=== PATIENT | male | born 1965 | race Caucasian/White ===

== ENCOUNTER 2019-10-13 18:31 | Inpatient (IN) | payer OTHER, SELFPAY ==
--- NOTE | ~2019-10-13 | XR_ITS ---
EXAMINATION: XR abdomen/kub 1V EXAM DATE: 10/15/2019 08:22 INDICATION: Kidney stones, vomiting, epigastric pain. Left low back pain. TECHNIQUE: Frontal projection(s) of the abdomen for interpretation. Correlation is made to abdomen pe lvis CT from 10/12. FINDINGS: There is expected amount of colonic stool and gas. Mildly dilated air-filled small bowel p robably mild ileus. There is a right-sided pigtail catheter presumably in the gallbladder. There ar e no suspicious calcifications identified. There is no organomegaly suspected. Moderate disc disea se L4-5. IMPRESSION: Interval cholecystostomy tube placement. Mild ileus. Reviewed, dictated and finalized at location A.
--- NOTE | ~2019-10-13 | CT_ITS ---
EXAMINATION: US perc cholecystostomy w imag, CT guide absc cath placement DATE: 10/14/2019 INDICATION: Acute cholecystitis TECHNIQUE: The procedure including the risks and benefits was discussed with the patient. Risks discu ssed included hemorrhage, infection, allergic reaction and bowel perforation. Oral and written consen t were obtained. The patient was confirmed to be receiving appropriate antibiotic coverage. The patie nt also received 0.5 mg Dilaudid IV on the floor prior to the procedure. The skin overlying the liver and gallbladder was prepped and draped in usual sterile fashion. Anesthetic was administered with 1 % lidocaine subcutaneously and along the planned catheter tract and wall of the gallbladder. An attem pt was made to place a 8.5 Fr catheter with trochar technique into the gallbladder. The needle tip st ill in the subcutaneous tissues and without transgressing the peritoneum, the attempted placement was halted due to the relative cephalad position of the gallbladder which did not significantly improved in position with deep inspiration resulting in poor visualization of the trocar which was not deemed adequate to safely advance. The catheter and trocar were removed and the patient was transferred to the CT scanner for CT guided cholecystostomy tube placement. Cytogeneticist CT images were obtained and an int ercostal approach was chosen for drain placement. The skin overlying the abdomen was prepped and drap ed in usual sterile fashion. Anesthetic was administered with 1% lidocaine subcutaneously and along the planned intercostal tract. 18-gauge needle was inserted via transhepatic approach into the gallbl adder utilizing CT guidance. The trocar was removed yielding black-colored bile. Utilizing Seldinger technique a J-wire is advanced into the gallbladder and the tract serially dilated from 6 Fr to 8 Fr and an 8.5 Fr catheter placed over the wire. Position was confirmed with CT, the loop formed and the wire removed with spontaneous reflux of additional black bilious fluid from the catheter. 10 mL fluid was aspirated and sent to the lab for Gram stain and cultures. The catheter was stitched to the skin with suture, antibiotic ointment and a sterile dressing applied. At the conclusion of the procedure the patient was experiencing significant pain likely due to reflux of bile along the tract during tra ct dilation and the patient was given an additional 1.5 mg Dilaudid IV. There were no immediate compl ications. The catheter was attached to gravity drainage and continued to drain black-colored bile. Th e dose-length product was 207.83 mGy-cm. FINDINGS: CT images demonstrate the catheter within the gallbladder. 10 mL fluid was aspirated for te sting. IMPRESSION: 1. Successful CT-guided percutaneous cholecystostomy tube placement. 2. 10 mL fluid was sent for aerobic and anaerobic cultures. 3. The catheter will be managed by Dr. Ramirez. A catheter cholangiogram may be performed not less th an 48 hours after tube placement if clinically indicated to assess cystic duct patency. If cholecyste ctomy is not eventually performed and the infectious episode has resolved, the tube may be removed ov er a guidewire, preferably not less than 3 weeks after placement to allow time for a mature catheter tract to form to prevent bile leakage and peritonitis. Reviewed, dictated and finalized at location A. IMPRESSION: 1. Successful CT-guided percutaneous cholecystostomy tube placement. 2. 10 mL fluid was sent for aerobic and anaerobic cultures. 3. The catheter will be managed by Dr. Ramirez. A catheter cholangiogram may be performed not less than 48 hours after tube placement if clinically indicated to assess cystic duct patency. If cholecystectomy is not eventually performed a nd the
--- NOTE | ~2019-10-13 | CT_ITS ---
EXAMINATION: CT abdomen pelvis wo con DATE: 10/13/2019 19:50 INDICATION: Epigastric abdominal pain, nausea and vomiting TECHNIQUE: Computed tomography (CT) of the abdomen and pelvis was performed without intravenous contr ast. The dose-length product (DLP) was 1364.38 mGy-cm. Automated exposure control and iterative recon struction technique were employed. COMPARISON: None FINDINGS: Minimal dependent atelectasis is present in the lung bases. The heart size is normal. The l iver, spleen, pancreas, and adrenal glands are normal. There are subtle stones in the gallbladder. Th ere is mild gallbladder wall thickening as well as edematous stranding of the pericholecystic fat. Th ere is a 3 mm nonobstructing stone of the left kidney lower pole. The right kidney is unremarkable. N o pathologically enlarged abdominal or pelvic lymph nodes are identified. There is no free intraperit baker gas or evidence of bowel obstruction. A moderate volume of colonic stool is present. There is s evere lumbar spondylosis. There is a tiny fat-containing umbilical hernia. IMPRESSION: 1. CT findings consistent with acute cholecystitis. 2. Nonobstructing left nephrolithiasis. Reviewed, dictated and finalized at location A.
--- NOTE | ~2019-10-13 | US_ITS ---
EXAMINATION: US renal BI EXAM DATE: 10/15/2019 10:42 INDICATION: Elevated creatinine. TECHNIQUE: Multiple grayscale and Doppler images of the kidneys were obtained (by a technologist who performed the scan) and subsequently reviewed. There is no prior study for comparison. FINDINGS: Right kidney: There is normal contour and echogenicity. It measures 12.0 x 6.6 x 7.2 centimeters. T here are no focal renal lesions identified. There is no hydronephrosis. Left kidney: There is normal contour and echogenicity. It measures 12.3 x 6.4 x 6.8 centimeters. Th ere are no focal renal lesions identified. There is no hydronephrosis. Bladder unremarkable. IMPRESSION: 1. Sonographically unremarkable kidneys. Reviewed, dictated and finalized at location A.
--- NOTE | ~2019-10-13 | NM_ITS ---
EXAMINATION: NM hepatobiliary wo pharm EXAM DATE: 10/14/2019 14:04 INDICATION: Check for cystic duct obstruction. TECHNIQUE: 4 mCi Tc-99m mebrofenin (Choletec) was administered intravenously. Scintigraphic images o f the abdomen were obtained for one hour. At the 1 hour time point, 1.5 mcg sincalide (Kinevac) was a dministered by slow intravenous infusion, and imaging was continued for . Correlation is made to CT a bdomen and pelvis from yesterday.. FINDINGS: There is normal clearance of radiotracer from the blood pool. There is homogeneous tracer u ptake by the liver. There is small bowel activity identified by 15 minutes time. No gallbladder activ ity identified during the hour and 15 minutes of imaging, consistent with cholecystitis. IMPRESSION: Nonfilling gallbladder, consistent with cholecystitis. Reviewed, dictated and finalized at location A.
--- NOTE | ~2019-10-13 | CT_ITS ---
EXAMINATION: CT abdomen pelvis wo con DATE: 10/16/2019 10:23 INDICATION: Acute cholecystitis with new elevation of liver enzymes post cholecystostomy tube placeme nt. TECHNIQUE: Computed tomography (CT) of the abdomen and pelvis was performed without intravenous contr ast. Automated exposure control and iterative reconstruction technique were employed. The dose-length product was 1515.08 mGy-cm. COMPARISON: 10/13/2019 FINDINGS: Atelectasis in the bilateral lower lobes and lingula. Tiny right pleural effusion. Small calcific nod ule in the right lower lobe consistent with old granulomatous disease. Heart size is normal. Atherosc lerotic coronary artery calcifications with change of mediastinum and coronary artery bypass grafting as well as coronary artery stenting. No pericardial effusion. Cholecystostomy tube via intercostal t ranshepatic approach in expected position with loops formed in the fundus of the now decompressed gal lbladder. There is persistent wall thickening and pericholecystic inflammatory stranding consistent w ith acute cholecystitis. Unchanged small region of focal hepatic steatosis at the ligamentum teres. L iver is otherwise unremarkable with no evident intrahepatic biliary ductal dilation. The common bile duct is normal in caliber. Spleen and small splenule, pancreas and bilateral adrenal glands are margarita l. Unchanged 2 mm stone in a lower pole calyx of the left kidney. Right kidney is normal. Interval in crease in bilateral perinephric stranding. Bowels including the appendix are normal. Bladder is margarita l. Penile calcifications consistent with Peyronie's disease. There is small amount of simple fluid at tenuation ascites scattered throughout the abdomen and pelvis. Interval development of mild dependent body wall edema. Mild lumbar dextrocurvature with moderate to severe thoracolumbar spondylosis. IMPRESSION: 1. Cholecystostomy tube in expected position with interval decompression of the previously dilated ga llbladder which demonstrates prominent wall thickening and pericholecystic inflammatory change consis tent with acute cholecystitis. No intra or extra hepatic biliary ductal dilation. 2. Interval development of tiny right pleural effusion, small amount of ascites, mild body wall edema and increase in bilateral perinephric stranding which may be related to mild anasarca secondary to b acteremia occurring with cholecystostomy tube placement. If there is clinical concern for bile leak c ould consider HIDA scan. 3. Unchanged 2 mm stone at the lower pole of the left kidney. Reviewed, dictated and finalized at location A. IMPRESSION: 1. Cholecystostomy tube in expected position with interval decompression of the previously dilated gallbladder which demonstrates prominent wall thickening an d pericholecystic inflammatory change consistent with acute cholecystitis. No i ntra or extra hepatic biliary ductal dilation. 2. Interval development of tiny right pleural effusion, small amount of ascites , mild body wall edema and increase in bilateral perinephric stranding which ma y be related to mild anasarca secondary to bacteremia occurring with cholecysto stomy tube placement. If there is clinical concern for bile leak could consider HIDA scan. 3. Unchanged 2 mm stone at the lower pole of the left kidney.
[2019-10-13 18:50] VITALS: BP 173/78; PULSE 87; RESP 16; TEMP 36.9; O2SAT 98
[2019-10-13 19:08] LABS: Basophils Percent Auto 0.2 % (0.2-1.2); Eosinophils Absolute Auto 0.2 K/mm3 (0-0.3); Eosinophils Percent Auto 1.6 % (0-4.4); Hematocrit 50.7 % (42.0-52.0); Hemoglobin 15.6 g/dL (14.0-18.0); Immature Granulocyte Absolute 0.05 K/mm3 (0.00-0.031); Immature Granulocyte Percent A 0.4 % (0-0.5); Lymphocytes Percent Auto 10.1 % (18.3-44.2); Mean Corpuscular HGB Conc 30.8 g/dl (32-36); Mean Corpuscular Hemoglobin 28.6 pg (26-34); Mean Platelet Volume 12.6 fl (7.4-10.4); Monocytes Absolute Auto 1.3 K/mm3 (0.1-0.6); Monocytes Percent Auto 9.9 % (2.6-8.5); Neutrophils Percent Auto 77.8 % (45.5-73.1); Platelet Count Result 206 k/mm3 (150-375); Red Blood Count 5.45 M/mm3 (4.6-6.20); Red Cell Distribution Width 14.2 % (11.5-14.5); White Blood Count 12.9 K/mm3 (4.5-10.0)
[2019-10-13 19:16] LABS: Add Urine Microscopic? YES; Appearance Urine Clear (Clear); Bilirubin Urine Negative (Negative); Blood Urine Negative (Negative); Color Urine Yellow (Yellow); Glucose Urine UA 3+ mg/dL (Negative); Ketones Urine Negative (Negative); Leukocyte Esterase Ur Negative LEU/UL (Negative); Mucus Urine Rare /lpf; Nitrate Urine Negative (Negative); Protein Urine 2+ mg/dL (Negative); RBC Urine 0-2 /hpf (0-2); Specific Grav Ur 1.024 (1.001-1.035); WBC Urine 0-3 /hpf
[2019-10-13 19:21] LABS: Alanine Aminotransferase 16 U/L (4-50); Albumin Level 4.7 g/dL (3.5-5.1); Alkaline Phosphatase 85 U/L (38-126); Aspartate Amino Transferase 18 U/L (17-59); Bilirubin,Total 0.9 mg/dL (0.2-1.3); Blood Urea Nitrogen 29 mg/dL (9-20); Calcium 9.3 mg/dL (8.4-10.2); Carbon Dioxide 34 mmol/L (22-30); Chloride 96 mmol/L (98-107); Estimated CRCL calculation 64 ml/min; Estimated Glomerular Filt Rate 45; Glucose 148 mg/dL (75-110); Lipase 99 U/L (23-300); Potassium 4.3 mmol/L (3.4-5.0); Sodium 138 mmol/L (137-145)
[2019-10-13] MEDS: ONDANSETRON INJ 4 MG/2 ML VIAL IV PUSH (19:21)
[2019-10-13] MEDS: SODIUM CHLORIDE 0.9% IV 1,000 ML 999 ML IV CONT (19:21)
--- NOTE | 2019-10-13 19:23 | ED.ABDPAIN ---
HPI - Abdominal Pain General Chief Complaint: Abdominal Pain Stated Complaint: N/V/Abdominal pain Thur. Time Seen by Provider: 10/13/19 18:47 Source: patient Mode of arrival: ambulatory Limitations: no limitations History of Present Illness HPI narrative: Patient presents with chief complaint of worsening epigastric pain that is accompanied by nausea and vomiting that began on . Patient states that he thought his symptoms was due to eating chicken while out. Patient denies any fevers. Patient states that the pain to his epigastric area continues to worsen and is crampy in sensation. He reports having history of hypertension, diabetes, hypercholesterolemia. Patient had a CABG performed July 2018. Patient denies drinking any alcohol or having history of pancreatitis. Patient denies blood in his vomit or stool. Patient denies fever. Related Data Home Medications Medication Instructions Recorded Confirmed insulin degludec 200 unit/mL (3 48 unit SUB-Q DAILY ml 06/07/19 09/09/19 mL) subcutaneous pen rosuvastatin 20 mg tablet 20 mg PO DAILY 06/07/19 09/09/19 ticagrelor 90 mg tablet 90 mg PO Q12H 06/07/19 09/09/19 insulin degludec [Tresiba SUBCUT 10/13/19 FlexTouch U-200] Allergies Allergy/AdvReac Type Severity Reaction Status Date / Time ARB-Angiotensin Receptor Allergy Unknown Dizziness Verified 10/13/19 18:54 Antagonist Review of Systems Review of Systems: Narrative: CONSTITUTIONAL: Denies fever, chills, or sweats. EYES: Denies visual changes, redness, or discharge. ENT: Denies rhinorrhea, congestion, sore throat, or otalgia. CARDIOVASCULAR: Denies chest pain, palpitations, or edema. RESPIRATORY: Denies cough or dyspnea. GASTROINTESTINAL: Reports abdominal pain, nausea, vomiting, denies diarrhea. GENITOURINARY: Denies dysuria or hematuria. SKIN: Denies rash or itching. MUSCULOSKELETAL: Denies back pain, joint pain, or myalgia. NEUROLOGIC: Denies headache, numbness, dizziness, or weakness. PSYCHIATRIC: Denies anxiety or depression. 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 Hypertensive heart disease without heart failure salvage determiner (current) use of insulin Mixed hyperlipidemia Proliferative diabetic retinopathy Type 2 diabetes mellitus with diabetic polyneuropathy Type 2 diabetes mellitus with hyperglycemia Family History Family History (System 06/10/19 @ 10:28 by Isaura Key) Father Diabetes mellitus Family history of coronary artery disease Mother Cerebrovascular accident Family history of malignant neoplasm of ovary Social History Social History Smoking status: Never smoker Alcohol intake: never Substance use: never Substance use type: does not use Exam Narrative: Exam Narrative: GENERAL: Well-appearing, well-nourished, and in no acute distress. Obese HEAD: Normocephalic, atraumatic. EYES: PERRLA and EOMI. ENT: Nares clear, no rhinorrhea or epistaxis. Mucous membranes moist. Oropharynx without tonsillar hypertrophy exudate or other lesions. Bilateral TMs pearly camacho nonbulging CHEST: Clear to auscultation. No respiratory distress. No wheezes rales or rhonchi HEART: Regular rate and rhythm. ABDOMEN: Soft, moderate tenderness to epigastric area. nondistended, normal active bowel sounds. EXTREMITIES: Normal range of motion. No edema. SKIN: Warm, dry, no rash. NEURO: No focal deficits. Alert and oriented x3. PSYCH: Normal mood and affect. Course Vital Signs Vital signs: Vital Signs Temperature 98.4 F 10/13/19 18:50 Pulse Rate 87 10/13/19 18:50 Respiratory Rate 16 10/13/19 18:50 Blood Pressure 173/78 H 10/13/19 18:50 Pulse Oximetry 98 10/13/19 18:50 Temperature 98.4 F 10/13/19 18:50 Pulse Rate 87 10/13/19 18:5
[2019-10-13] MEDS: MORPHINE SULFATE 2 MG/ML INJ IV PUSH (20:31)
[2019-10-13] MEDS: HYDROMORPHONE HCL 1 MG/ML INJ 0.5 MG IV PUSH (21:26)
[2019-10-13] MEDS: METOCLOPRAMIDE HCL INJ 10 MG/2 ML VIAL IV PUSH (21:27)
--- NOTE | 2019-10-13 22:36 | PM.IMHP ---
H&P: HPI History of Present Illness Chief complaint: Epigastric pain for the past 4 days++ Narrative: This is a pleasant 54 year old Diabetic male with known CAD+, HTN, and hyperlipidemia who presented to the hospital with complaints of epigastric pain, nausea, and vomiting for the past 4 days. The patient's symptoms are aggravated with any intake of food or fluid. He denies any fevers, chills, bloody emesis, dysuria, hematuria, diarrhea or rectal bleeding. He denies any history of peptic ulcer disease or pancreatitis. The patient was evaluated in the ER tonight and found to have acute cholecystitis on CT Abd/pelvis. General Surgery has been consulted by ER provider. The patient has been started on IV antibiotics and we have been asked to admit the patient to the hospital for further care. No other complaints. 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 Hypertensive heart disease without heart failure terminal press operator (current) use of insulin Mixed hyperlipidemia Proliferative diabetic retinopathy Type 2 diabetes mellitus with diabetic polyneuropathy Type 2 diabetes mellitus with hyperglycemia Surgical History Surgical History (Updated 10/13/19 @ 22:40 by Richy Childress MD) Hx of CABG Family History Family History Father Diabetes mellitus Family history of coronary artery disease Mother Cerebrovascular accident Family history of malignant neoplasm of ovary Social History Social History Smoking status: Never smoker Alcohol intake: former Substance use: never Substance use type: does not use Gender identity (if verbalized by the patient): Male Spiritual care concerns: No Agree to blood products: Yes Meds Home Medications and Allergies Home Medications Medication Instructions Recorded Confirmed Type empagliflozin 25 mg tablet 25 mg PO DAILY #90 tablet 06/07/19 10/13/19 Rx insulin degludec 200 unit/mL (3 48 unit SUB-Q DAILY ml 06/07/19 10/13/19 History mL) subcutaneous pen rosuvastatin 20 mg tablet 20 mg PO DAILY 06/07/19 10/13/19 History ticagrelor 90 mg tablet 90 mg PO DAILY 06/07/19 10/13/19 History pen needle, diabetic 32 gauge x #200 each 07/30/19 10/13/19 Rx valsartan 160 mg tablet 160 mg PO DAILY #30 tablet 08/29/19 10/13/19 Rx Lyrica 100 mg capsule 100 mg PO BID #180 cap NS 09/09/19 10/13/19 Rx dulaglutide 0.75 mg/0.5 mL 0.75 mg SUB-Q WEEKLY #1 ml 09/09/19 10/13/19 Rx subcutaneous pen injector insulin degludec [Tresiba 48 unit SUBCUT DAILY 10/13/19 10/13/19 History FlexTouch U-200] Allergies Allergy/AdvReac Type Severity Reaction Status Date / Time ARB-Angiotensin Receptor Allergy Unknown Dizziness Verified 10/13/19 18:54 Antagonist Vital Signs Vital Signs - 24 hr 10/13/19 18:50 Temperature 36.9 C Pulse Rate 87 Respiratory Rate 16 Blood Pressure 173/78 H Pulse Oximetry 98 Exam Const: General: cooperative, alert, awake and ill appearing Nutritional Appearance: obese morbidly obese Orientation/consciousness: patient oriented x3 HENMT: Head: normal to inspection General nose exam: Normal external nose present Face and sinus: normal facial exam Mouth: Yes Normal oral and palatal mucosa present and Yes oropharynx normal Eyes: Pupils: Equal, round and reactive pupils present EOM: EOMs intact bilaterally Neck: Neck: supple and no JVD Thyroid: thyroid normal Lymphatic: lymphadenopathy not noted Resp: Effort & Inspection: normal respiratory effort Auscultation: clear to auscultation bilaterally Cardio: Rate: regular rate Rhythm: regular rhythm Heart sounds:
[2019-10-13] MEDS: LACTATED RINGERS 1,000 ML 125 ML IV CONT (22:39)
[2019-10-13 22:40] VITALS: BP 160/77; PULSE 87; RESP 18; TEMP 36.6; O2SAT 95; BMI 31.8
[2019-10-13 22:43] VITALS: BP 120/70; PULSE 80; RESP 20; TEMP 36.7; O2SAT 99
[2019-10-13] MEDS: HYDROMORPHONE HCL 1 MG/ML INJ IV PUSH (23:22)
--- NOTE | 2019-10-13 23:48 | ADMGEN ---
This patient, Jason Negro, was admitted to [facility] Surg Room 323-01. Patient/family oriented to hospital policies and general routines including ID bracelet, bed and alarms, visiting hours, pain management, procedures, bathroom and other care routines, personal items, smoking policy, room service/diet, and visiting hours. Valuables list has been completed. Information on how to activate the Rapid Response Team has been discussed. Patient/Family are encouraged to report perceived risks to care and to ask questions if they do not understand what they are told or what they should do.
[2019-10-14 00:12] LABS: Glucose Point of Care 160 (65-105)
[2019-10-14] MEDS: HYDROMORPHONE HCL 1 MG/ML INJ 0.5 MG IV PUSH ×2 (03:19→18:36)
[2019-10-14 06:00] VITALS: BP 152/86; PULSE 95; RESP 18; TEMP 36.8; O2SAT 95
[2019-10-14] MEDS: LACTATED RINGERS 1,000 ML 125 ML IV CONT ×3 (06:00→23:15)
[2019-10-14 06:10] LABS: Basophils Percent Auto 0.2 % (0.2-1.2); Eosinophils Percent Auto 0.3 % (0-4.4); Hemoglobin 14.4 g/dL (14.0-18.0); Immature Granulocyte Absolute 0.09 K/mm3 (0.00-0.031); Immature Granulocyte Percent A 0.7 % (0-0.5); Lymphocytes Absolute Auto 1.21 K/mm3 (0.9-3.2); Lymphocytes Percent Auto 9.3 % (18.3-44.2); Mean Corpuscular HGB Conc 31.3 g/dl (32-36); Mean Corpuscular Hemoglobin 28.9 pg (26-34); Mean Corpuscular Volume 92.2 fl (80-100); Mean Platelet Volume 12.3 fl (7.4-10.4); Monocytes Absolute Auto 1.4 K/mm3 (0.1-0.6); Monocytes Percent Auto 10.4 % (2.6-8.5); Neutrophils Absolute Auto 10.3 K/mm3 (1.3-6.7); Neutrophils Percent Auto 79.1 % (45.5-73.1); Platelet Count Result 194 k/mm3 (150-375); Red Blood Count 4.99 M/mm3 (4.6-6.20)
[2019-10-14 06:16] LABS: Glucose Point of Care 153 (65-105)
[2019-10-14 06:17] VITALS: BP 151/65
[2019-10-14] MEDS: HYDROMORPHONE HCL 1 MG/ML INJ IV PUSH ×3 (06:17→16:14)
[2019-10-14 06:42] LABS: Blood Urea Nitrogen 28 mg/dL (9-20); Calcium 8.7 mg/dL (8.4-10.2); Carbon Dioxide 32 mmol/L (22-30); Chloride 100 mmol/L (98-107); Estimated CRCL calculation 86 ml/min; Estimated Glomerular Filt Rate > 60; Glucose 163 mg/dL (75-110); Potassium 5.4 mmol/L (3.4-5.0); Sodium 137 mmol/L (137-145)
--- NOTE | 2019-10-14 09:22 | PM.CNGS ---
Assessment and Plan Assessment and plan (1) Acute cholecystitis: Code(s): K81.0 - Acute cholecystitis Status: Acute Assessment and Plan: CT scan reviewed and discussed with the patient. He has evidence of gallbladder wall thickening with gallstones and edematous stranding of pericholecystic fat. This is concerning for acute cholecystitis. He also had continued leukocytosis with a white blood cell count of 13,000 today. He is afebrile and LFTs normal. I discussed the pathophysiology of gallbladder disease with the patient as well as the treatment plan at this point. We will obtain a HIDA scan today to assess for filling of the gallbladder. Continue NPO status, IV antibiotics, IV fluids, antiemetics, and analgesics for now. We will have to hold narcotic IV pain medication prior to the HIDA scan. Updated plan following the HIDA scan, which showed no filling of the gallbladder consistent with acute cholecystitis. Dr. Ramirez spoke with the patient after these results regarding treatment options of treating this with a percutaneous cholecystostomy drain placement with antibiotics versus proceeding with the laparoscopic cholecystectomy, possible open, now over 72 hours after onset of symptoms. When considering surgery at this point, since the onset was over 72 hours ago, this is more likely to be a difficult surgery with significant inflammation and an increase in the risk of complications of surgery. If we proceeded with percutaneous cholecystostomy drain, then we would continue the antibiotics with likely oral antibiotics on discharge and plan the cholecystectomy electively weeks from now. The patient decided to proceed with percutaneous cholecystostomy drain placement, which was ordered to hopefully be done in Radiology tomorrow. Continue IV antibiotics and analgesics for now, and will allow the patient to have clear liquids tonight. Thank you for allowing me to see the patient in consultation and we will continue to follow along with you. (2) Antiplatelet or antithrombotic long-term use: Code(s): Z79.02 - custodial (current) use of antithrombotics/antiplatelets Status: Acute Assessment and Plan: Hold Brilinta and Aspirin. (3) CAD (coronary artery disease): Qualifiers: Associated angina: without angina Coronary Disease-Associated Artery/Lesion type: bypass graft [place] vs. transplanted heart: [place] heart Qualified Code(s): I25.810 - Atherosclerosis of coronary artery bypass graft(s) without angina pectoris Code(s): I25.10 - Atherosclerotic heart disease of [place] coronary artery without angina pectoris Status: Chronic Assessment and Plan: Increase his risk for surgery. (4) Type 2 diabetes mellitus with diabetic polyneuropathy: Qualifiers: Diabetes mellitus oysterman insulin use: with oysterman use Qualified Code(s): E11.42 - Type 2 diabetes mellitus with diabetic polyneuropathy; Z79.4 - custodial (current) use of insulin Code(s): E11.42 - Type 2 diabetes mellitus with diabetic polyneuropathy Status: Chronic Assessment and Plan: Increases his risk for surgery. (5) custodial (current) use of insulin: Code(s): Z79.4 - predatory animal exterminator (current) use of insulin Status: Acute (6) Hypertensive heart disease without heart failure: Code(s): I11.9 - Hypertensive heart disease without heart failure Status: Acute (7) Mixed hyperlipidemia: Code(s): E78.2 - Mixed hyperlipidemia Status: Chronic (8) Acute kidney injury: Code(s): N17.9 - Acute kidney failure, unspecified Status: Acute Assessment and Plan: Creatinine improved today to 1.2. Management per hospitalist. Additional Plan Discussed and formulated plan of care for this patient with Dr. Ramirez. History of Present Illness Consult details Consult date: 10/14/19 Reason for consult: other (Possible acute cholecystitis) Requesting physician: Davis
[2019-10-14 11:21] VITALS: BMI 31.8
[2019-10-14 11:34] LABS: Glucose Point of Care 138 (65-105)
--- NOTE | 2019-10-14 12:22 | PM.IMPN ---
Progress Note: A&P Assessment and Plan (1) Acute cholecystitis: Code(s): K81.0 - Acute cholecystitis Status: Acute Assessment and Plan: CT abdomen/pelvis consistent with acute cholecystitis. General surgery consulted and appreciate input. HIDA scan also consistent with acute cholecystitis. Anticipate cholecystectomy. Continue NPO, IV fluids and pain control. Remains on IV Zosyn. (2) Acute kidney injury: Code(s): N17.9 - Acute kidney failure, unspecified Status: Acute Assessment and Plan: Creatinine improved to 1.20 today. Will continue to monitor. (3) Type 2 diabetes mellitus with diabetic polyneuropathy: Qualifiers: Diabetes mellitus keno terminal operator insulin use: with fci use Qualified Code(s): E11.42 - Type 2 diabetes mellitus with diabetic polyneuropathy; Z79.4 - [facility] (current) use of insulin Code(s): E11.42 - Type 2 diabetes mellitus with diabetic polyneuropathy Status: Chronic Assessment and Plan: Glucose reviewed on 10/14/2019 and presently stable. Will hold home insulin while NPO. Sliding scale insulin available as needed. Home Lyrica also a on hold. Will check hemoglobin A1c. (4) Benign essential HTN: Code(s): I10 - Essential (primary) hypertension Status: Chronic Assessment and Plan: Blood pressure reviewed on 10/14/2019 with mild elevation but otherwise stable. Home valsartan on hold. IV hydralazine available as needed. (5) CAD (coronary artery disease): Qualifiers: Associated angina: without angina Coronary Disease-Associated Artery/Lesion type: bypass graft [place] vs. transplanted heart: [place] heart Qualified Code(s): I25.810 - Atherosclerosis of coronary artery bypass graft(s) without angina pectoris Code(s): I25.10 - Atherosclerotic heart disease of [place] coronary artery without angina pectoris Status: Chronic Assessment and Plan: Hold Brilinta and rosuvastatin. Resume once able. (6) Mixed hyperlipidemia: Code(s): E78.2 - Mixed hyperlipidemia Status: Chronic Assessment and Plan: Continue to hold rosuvastatin. (7) DVT prophylaxis: Code(s): Z29.9 - Encounter for prophylactic measures, unspecified Status: Acute Time Spent With Patient Time with patient: 15 - 25 minutes Subjective Date/time seen: 10/14/19 12:22 Interval history: Date of Service: 10/14/2019. Admitted with RUQ pain/acute cholecystitis. Patient still with RUQ pain. Intermittent nausea but no vomiting. No chest pain. No shortness of breath. Review of Systems Constitutional: Constitutional: Denies chills and Denies fever(s) ENT: Denies dysphagia Cardiovascular: Cardiovascular: Denies chest pain Respiratory: Respiratory: Denies dyspnea Gastrointestinal: Gastrointestinal: Reports abdominal pain (RUQ), Reports nausea and Denies vomiting Genitourinary: Genitourinary: Reports no additional male genitourinary complaints Musculoskeletal: Musculoskeletal: Reports no additional musculoskeletal complaints Integumentary/Breasts: Skin/Breast: Denies rash Neurologic: Denies headache(s) Psychiatric: Psychiatric: Denies anxiety, Denies confusion and Denies depression Exam Narrative: Exam Narrative: Awake and alert. Const: General: no acute distress HENMT: Mouth: Yes moist mucous membranes Neck: Neck: supple Lymphatic: lymphadenopathy not noted Resp: Auscultation: clear to auscultation bilaterally, no rales and no wheezes Cardio: Rate: regular rate Rhythm: regular rhythm GI: Inspection: non-distended GI Palp: Yes Soft to palpation and Yes Tenderness to palpation present (GI) (RUQ) Auscultation: normal bowel sounds Skin: General skin exam: no rashes or lesions noted Neuro: General: patient oriented x3 Cognition (Neuro): normal cognition Speech: normal speech Extrem: General: no edema Psych: Mental Status: mental status grossly normal Affect: normal af
[2019-10-14 14:41] VITALS: BP 151/72; PULSE 84; RESP 18; TEMP 36.8; O2SAT 95
[2019-10-14 16:07] LABS: INR 1.2; Prothrombin Time 14.5 Seconds (11.1-14.7)
[2019-10-14 16:08] LABS: Partial Thromboplastin Time 29.2 SECONDS (22.3-36.8)
[2019-10-14] MEDS: HYDROMORPHONE HCL 2 MG/ML VIAL 1.5 MG IV PUSH (18:30)
[2019-10-14 18:48] VITALS: BP 157/87; PULSE 80; RESP 18; O2SAT 88
[2019-10-14 18:59] VITALS: BP 163/76; PULSE 95; RESP 18; TEMP 37.2; O2SAT 94
[2019-10-14 20:20] LABS: Glucose Point of Care 152 (65-105)
--- NOTE | 2019-10-14 21:14 | PC.NURSE ---
[facility] Pt returned at 1426. Received call from [employer] during the middle about whether it should include pharmacologics or not. Called James's office and they said that he would call them to clarify. Dr. Ramirez stopped by and asked me to premedicate pt for US perc drain with 1 mg dilaudid. He also asked me to put in clear liquid diet upon pt return. If tolerated well, pt can advance to full liquid in AM. Pt down for procedure at 1644. Pretreatment pain medication given prior to leaving floor. Received call while pt was down in US that they were needing to use CT to place drain. Asked to put order in per Dr. Henao. Received additional call for me to come down to CT and give medication for pain. Used 1 ml dilaudid at 1810. Dr. Henao stated that additional pain meds would need to be ordered. Called Dr. Ramirez who gave increase in pain meds, plus a one time 0.5mg dilaudid dose for when pt returned to floor. At 1830 pt given 0.5mg dilaudid. at 1900 pt appeared to be experiencing some relief.
[2019-10-14 22:00] VITALS: BP 128/76; PULSE 101; RESP 18; TEMP 36.4; O2SAT 95
[2019-10-14 23:26] LABS: Glucose Point of Care 171 (65-105)
[2019-10-15] VITALS (13 sets, daily range): BP systolic 72–169; BP diastolic 45–97; PULSE 76–87; RESP 16–20; TEMP 36.1–36.7; O2SAT 92–96
[2019-10-15 05:36] LABS: Hematocrit 45.8 % (42.0-52.0); Hemoglobin 13.4 g/dL (14.0-18.0); Mean Corpuscular HGB Conc 29.3 g/dl (32-36); Mean Corpuscular Hemoglobin 28.4 pg (26-34); Mean Platelet Volume 12.7 fl (7.4-10.4); Platelet Count Result 194 k/mm3 (150-375); Red Blood Count 4.72 M/mm3 (4.6-6.20); Red Cell Distribution Width 14.5 % (11.5-14.5); White Blood Count 10.5 K/mm3 (4.5-10.0)
[2019-10-15 05:47] LABS: Hemoglobin A1C 6.7 % (<5.7)
[2019-10-15] MEDS: SODIUM CHLORIDE 0.9% IV 1,000 ML 999 ML IV CONT (05:51)
[2019-10-15] MEDS: INSULIN ASPART (*BKC) 100 UNITS/ML SUB-Q ×3 (05:54→17:35)
[2019-10-15 05:59] LABS: Albumin Level 3.6 g/dL (3.5-5.1); Alkaline Phosphatase 235 U/L (38-126); Bilirubin,Total 2.6 mg/dL (0.2-1.3); Blood Urea Nitrogen 40 mg/dL (9-20); Calcium 8.2 mg/dL (8.4-10.2); Carbon Dioxide 23 mmol/L (22-30); Chloride 97 mmol/L (98-107); Estimated CRCL calculation 36 ml/min; Estimated Glomerular Filt Rate 22; Glucose 358 mg/dL (75-110); Potassium 5.4 mmol/L (3.4-5.0); Sodium 132 mmol/L (137-145)
[2019-10-15 06:36] LABS: Alanine Aminotransferase > 3750 U/L (4-50); Aspartate Amino Transferase 4977 U/L (17-59)
[2019-10-15 06:47] LABS: Glucose Point of Care 319 (65-105)
[2019-10-15 07:28] LABS: Glucose Point of Care 334 (65-105)
[2019-10-15] MEDS: SODIUM CHLORIDE 0.9% IV 500 ML IV CONT (07:30)
[2019-10-15] MEDS: ONDANSETRON INJ 4 MG/2 ML VIAL IV PUSH ×3 (07:32→21:28)
--- NOTE | 2019-10-15 07:51 | PM.IMPN ---
Progress Note: A&P Assessment and Plan (1) Hypotension: Qualifiers: Hypotension type: unspecified hypotension type Qualified Code(s): I95.9 - Hypotension, unspecified Code(s): I95.9 - Hypotension, unspecified Status: Acute Assessment and Plan: Probably result of issue secondary to cholecystitis. Patient did receive 1 L bolus overnight. Additional 500 cc bolus normal saline given this morning. Blood pressure did decrease to a low of 72/50 manually. Blood pressure 129/97 after 2nd bolus. Will continue IV fluids. Will continue to monitor. Blood and urine cultures ordered given entire situation. Total time spent in critical care 40 minutes. (2) Acute cholecystitis: Code(s): K81.0 - Acute cholecystitis Status: Acute Assessment and Plan: CT abdomen/pelvis consistent with acute cholecystitis. General surgery consulted and appreciate input. HIDA scan also consistent with acute cholecystitis. After discussion with Dr. Ramirez yesterday, decision was made for percutaneous cholecystostomy drain. Unable to be done by ultrasound and done by CT scan. LFTs are now increased this morning but not unexpected. KUB ordered with nausea and nonobstructing left kidney stone noted on previous CT scans. Will continue IV Zosyn. Continue IV fluids. KUB results with mild ileus. Continue to monitor. (3) Acute kidney injury: Code(s): N17.9 - Acute kidney failure, unspecified Status: Acute Assessment and Plan: Creatinine has now increased to 3.00 today. Suspect combination of hypotension and in infectious issues. Will continue to monitor. Will check renal ultrasound. (4) Type 2 diabetes mellitus with diabetic polyneuropathy: Qualifiers: Diabetes mellitus fci insulin use: with adjunct faculty for medical terminology use Qualified Code(s): E11.42 - Type 2 diabetes mellitus with diabetic polyneuropathy; Z79.4 - petroleum terminal plant operator (current) use of insulin Code(s): E11.42 - Type 2 diabetes mellitus with diabetic polyneuropathy Status: Chronic Assessment and Plan: Glucose reviewed on 10/15/2019 and now in 300s. Will hold home insulin as still having nausea and vomiting but anticipate needing to restart. Hold other home medication. Will also continue home Lyrica for now. Sliding scale insulin available as needed. Hemoglobin A1c 6.7. (5) Benign essential HTN: Code(s): I10 - Essential (primary) hypertension Status: Chronic Assessment and Plan: Blood pressure low as noted above. Continue to hold home valsartan. (6) CAD (coronary artery disease): Qualifiers: Associated angina: without angina Coronary Disease-Associated Artery/Lesion type: bypass graft [place] vs. transplanted heart: [place] heart Qualified Code(s): I25.810 - Atherosclerosis of coronary artery bypass graft(s) without angina pectoris Code(s): I25.10 - Atherosclerotic heart disease of [place] coronary artery without angina pectoris Status: Chronic Assessment and Plan: Hold Brilinta and rosuvastatin. Resume once able. (7) Mixed hyperlipidemia: Code(s): E78.2 - Mixed hyperlipidemia Status: Chronic Assessment and Plan: Continue to hold rosuvastatin. (8) DVT prophylaxis: Code(s): Z29.9 - Encounter for prophylactic measures, unspecified Status: Acute Assessment and Plan: SCDs. Time Spent With Patient Time with patient: 15 - 25 minutes Subjective Date/time seen: 10/15/19 07:51 Interval history: Date of Service: 10/15/2019. Admitted with RUQ pain/acute cholecystitis. Patient with decreased blood pressure overnight and again this morning. Patient currently with nausea and vomiting. Also complaining of pain left lower back. Feels decrease in hearing. No chest pain or chest pressure. No shortness of breath. Review of Systems Constitutional: Constitutional: Denies chills and Denies fever(s) ENT: Denies dysphagia Cardi
[2019-10-15 07:58] LABS: Albumin Level 3.7 g/dL (3.5-5.1)
[2019-10-15 07:59] LABS: Alkaline Phosphatase 238 U/L (38-126); Bilirubin Direct 0.6 mg/dL (0-0.3); Bilirubin,Total 2.5 mg/dL (0.2-1.3); Lipase 97 U/L (23-300)
[2019-10-15 08:02] LABS: Alanine Aminotransferase > 3750 U/L (4-50); Aspartate Amino Transferase 4977 U/L (17-59)
--- NOTE | 2019-10-15 08:03 | PM.PNGS ---
Progress Note: A&P Assessment and Plan (1) Hypotension: Onset Date: ~10/15/19 Qualifiers: Hypotension type: unspecified hypotension type Qualified Code(s): I95.9 - Hypotension, unspecified Code(s): I95.9 - Hypotension, unspecified Status: Acute (2) Acute cholecystitis: Onset Date: ~10/10/19 Code(s): K81.0 - Acute cholecystitis Status: Acute Assessment and Plan: Patient had placement of a CT-guided cholecystostomy tube last night for this problem. He has had bilious drainage from it and has not moved. His H&H was stable this morning after the procedure. There is dark bilious drainage from the catheter at this time. It does not appear to have been removed or dislodged. (3) Type 2 diabetes mellitus with hyperglycemia: Onset Date: Unknown Code(s): E11.65 - Type 2 diabetes mellitus with hyperglycemia Status: Acute Assessment and Plan: Blood sugars way up today because he vomited is not eating it is difficult to control at this time. (4) Left nephrolithiasis: Onset Date: Unknown Code(s): N20.0 - Calculus of kidney Status: Acute Assessment and Plan: Noted on CT scan when admitted this date. It was a small stone within the lower pole of the left kidney. Additional Plan Discussed with Dr. rousseau. We will give another fluid bolus. Will do a KUB of the abdomen to rule out movement of the stone from the left kidney leading to perhaps low lobe left back pain from a kidney stone passage Will recheck labs and check serial H&Hs. Subjective Subjective Date/Time Seen: 10/15/19 08:03 Early this morning the patient complained of increased left lower back pain and loose stools with some incontinence. He also was found to have a low blood pressure and was given a bolus. Patient was complaining of left low back pain as we examined him this morning. He was nauseated and vomited once before I arrived. Review of Systems Constitutional: Constitutional: Reports no additional constitutional complaints ENT: Reports other (Mucous Membranes moist.) Cardiovascular: Cardiovascular: Denies dyspnea Respiratory: Respiratory: Denies pain on inspiration and Denies dyspnea Musculoskeletal: Musculoskeletal: Reports other (No calf swelling or edema) Integumentary/Breasts: Skin/Breast: Reports system reviewed and no additional complaints, except as docu Exam HENMT: Mouth: Yes moist mucous membranes Neck: Neck: normal visual inspection Chest: Chest palpation & inspection: normal inspection of the chest Resp: Effort & Inspection: normal respiratory effort Auscultation: clear to auscultation bilaterally Cardio: Jugular venous distension: no JVD Rate: regular rate Rhythm: regular rhythm GI: Inspection: normal to inspection and other ( Cholecystostomy drain exiting a site in the right upper quadrant.) Auscultation: normal bowel sounds Rectal Exam: deferred Other: Exit site for the cholecystostomy tube is high near the rib margin on the right. Patient has active bowel sounds. Abdomen otherwise unremarkable. Neuro: General: patient oriented x3 and moves all extremities Speech: normal speech Extrem: General: normal exam except as noted Psych: Mental Status: mental status grossly normal Speech and movement: Normal speech and movement present Affect: normal affect Thought content: Yes Normal thought content present Objective Data Vital Signs Vital Signs: Vital Signs - 24 hr 10/14/19 14:41 10/14/19 18:48 10/14/19 18:59 Temperature 36.8 C 37.2 C Pulse Rate 84 80 95 Respiratory Rate 18 18 18 Blood Pressure 151/72 H 157/87 H 163/76 H Pulse Oximetry 95 88 L 94 10/14/19 22:00 10/15/19 04:21 10/15/19 06:00 Temperature 36.4 C 36.7 C 36.4 C Pulse Rate 101 H 86 82 Respiratory Rate 18 18 18 Blood Pressure 128/76 83/46 L 102/75 Pulse Oximetry 95 93 96 10/15/19 07:35 10/15/19 07:38 Temperature Pulse Rate Res
[2019-10-15 09:21] LABS: Hemoglobin 13.4 g/dL (14.0-18.0)
[2019-10-15 09:30] LABS: INR 1.9; Prothrombin Time 21.4 Seconds (11.1-14.7)
[2019-10-15 09:31] LABS: Partial Thromboplastin Time 33.7 SECONDS (22.3-36.8)
[2019-10-15 11:49] LABS: Glucose Point of Care 305 (65-105)
[2019-10-15 15:16] LABS: Hematocrit 47.7 % (42.0-52.0); Hemoglobin 14.8 g/dL (14.0-18.0)
[2019-10-15] MEDS: LACTATED RINGERS 1,000 ML 125 ML IV CONT (15:20)
[2019-10-15 17:32] LABS: Glucose Point of Care 341 (65-105)
[2019-10-15] MEDS: INSULIN GLARGINE (*BKC) 100 UNITS/ML 20 UNITS SUB-Q (21:22)
[2019-10-15 21:42] LABS: Glucose Point of Care 292 (65-105)
[2019-10-16] VITALS (10 sets, daily range): BP systolic 129–198; BP diastolic 77–103; PULSE 73–85; RESP 18–20; TEMP 36.2–36.5; O2SAT 92–97
[2019-10-16] MEDS: LABETALOL HCL INJ 100 MG/20 ML VIAL 10 MG IV PUSH ×2 (00:34→05:53)
[2019-10-16] MEDS: LACTATED RINGERS 1,000 ML 125 ML IV CONT ×3 (03:05→15:54)
[2019-10-16] MEDS: ONDANSETRON INJ 4 MG/2 ML VIAL IV PUSH ×3 (03:16→19:24)
[2019-10-16 06:05] LABS: Basophils Percent Auto 0.3 % (0.2-1.2); Eosinophils Percent Auto 0.3 % (0-4.4); Hematocrit 45.1 % (42.0-52.0); Hemoglobin 14.4 g/dL (14.0-18.0); Immature Granulocyte Absolute 0.05 K/mm3 (0.00-0.031); Immature Granulocyte Percent A 0.4 % (0-0.5); Lymphocytes Percent Auto 7.1 % (18.3-44.2); Mean Corpuscular HGB Conc 31.9 g/dl (32-36); Mean Corpuscular Hemoglobin 28.7 pg (26-34); Mean Platelet Volume 12.6 fl (7.4-10.4); Monocytes Absolute Auto 0.8 K/mm3 (0.1-0.6); Monocytes Percent Auto 7.3 % (2.6-8.5); Neutrophils Absolute Auto 9.6 K/mm3 (1.3-6.7); Neutrophils Percent Auto 84.6 % (45.5-73.1); Platelet Count Result 196 k/mm3 (150-375); Red Blood Count 5.01 M/mm3 (4.6-6.20); White Blood Count 11.3 K/mm3 (4.5-10.0)
[2019-10-16 06:09] LABS: Albumin Level 3.9 g/dL (3.5-5.1); Alkaline Phosphatase 253 U/L (38-126); Bilirubin,Total 1.5 mg/dL (0.2-1.3); Blood Urea Nitrogen 63 mg/dL (9-20); Calcium 8.8 mg/dL (8.4-10.2); Carbon Dioxide 28 mmol/L (22-30); Chloride 94 mmol/L (98-107); Estimated CRCL calculation 21 ml/min; Estimated Glomerular Filt Rate 12; Glucose 299 mg/dL (75-110); Potassium 4.9 mmol/L (3.4-5.0); Sodium 133 mmol/L (137-145)
[2019-10-16 06:38] LABS: Alanine Aminotransferase > 3750 U/L (4-50); Aspartate Amino Transferase 2922 U/L (17-59)
[2019-10-16 07:52] LABS: Glucose Point of Care 273 (65-105)
[2019-10-16] MEDS: HYDROMORPHONE HCL 1 MG/ML INJ IV PUSH ×7 (08:06→19:20)
[2019-10-16] MEDS: INSULIN ASPART (*BKC) 100 UNITS/ML SUB-Q ×3 (08:08→16:07)
--- NOTE | 2019-10-16 10:15 | PM.PNGS ---
Progress Note: A&P Assessment and Plan (1) Hypotension: Onset Date: ~10/15/19 Qualifiers: Hypotension type: unspecified hypotension type Qualified Code(s): I95.9 - Hypotension, unspecified Code(s): I95.9 - Hypotension, unspecified Status: Acute (2) Acute cholecystitis: Onset Date: ~10/10/19 Code(s): K81.0 - Acute cholecystitis Status: Acute Assessment and Plan: Patient had placement of a CT-guided cholecystostomy tube two nights ago for this problem. He has had bilious drainage from it and it has not moved or retracted that we can tell. His H&H was stable yesterday and this morning after the procedure. There is dark bilious drainage from the catheter at this time. It does not appear to have been removed or dislodged. Patient had hypotension yesterday morning unknown cause but 1 possibility is sepsis related to tracking of infection along the catheter. Therefore I have decided to go ahead with a CT scan of the abdomen and pelvis without contrast. He does have elevated BUN creatinine so it is better to probably do it without contrast although these have improved in the last 24 hours with IV fluid rehydration. (3) Type 2 diabetes mellitus with hyperglycemia: Onset Date: Unknown Code(s): E11.65 - Type 2 diabetes mellitus with hyperglycemia Status: Acute Assessment and Plan: Blood sugars way up today because he vomited is not eating it is difficult to control at this time. (4) Left nephrolithiasis: Onset Date: Unknown Code(s): N20.0 - Calculus of kidney Status: Acute Assessment and Plan: Noted on CT scan when admitted this date. It was a small stone within the lower pole of the left kidney. Additional Plan Discussed with Dr. Gorman Check CT scan of the abdomen pelvis without contrast Aad alternating Reglan for nausea control if needed Subjective Subjective Date/Time Seen: 10/16/19 10:15 Patient is sitting up in lungs are chair when I entered the room. Still complain of nausea. Has some hypogastric and right upper quadrant pain. The left back pain that he was having yesterday morning has now resolved. He is otherwise doing okay. No bowel movement overnight. Positive flatus. No fever. Review of Systems Eyes: Eyes: Denies change in vision and Denies loss of vision ENT: Denies dysphagia, Denies dizziness, Denies headache(s) and Reports other (Mucous Membranes moist.) Cardiovascular: Cardiovascular: Denies chest pain, Denies syncope, Denies leg edema, Denies lightheadedness, Denies radiating jaw, neck or arm pain and Denies dyspnea Respiratory: Respiratory: Denies cough, Denies pain on inspiration, Denies dyspnea and Denies wheezing Gastrointestinal: Gastrointestinal: Reports as per HPI, Reports abdominal pain (epigastric and RUQ), Denies melena, Denies bloating, Denies hematochezia, Denies change in bowel habits, Denies constipation, Denies dysphagia, Denies diarrhea, Reports nausea and Reports vomiting Musculoskeletal: Musculoskeletal: Denies deformity, Denies joint swelling, Reports numbness (Diabetic peripheral neuropathy), Denies radiating pain into limb and Reports other (No calf swelling or edema) Integumentary/Breasts: Skin/Breast: Reports system reviewed and no additional complaints, except as docu, Denies pruritus, Denies wounds and Denies jaundice Neurologic: Denies dizziness, Denies syncope, Denies headache(s), Denies loss of vision, Reports numbness (Diabetic peripheral neuropathy), Denies tremor(s) and Denies weakness Psychiatric: Psychiatric: Denies anxiety and Denies depression Endocrine: Endocrine: Denies cold intolerance, Denies excessive sweating, Denies fatigue and Denies heat intolerance Exam Chest: Chest palpation & inspection: normal inspection of the chest Resp: Effort & Inspection: normal respiratory effort, able to speak in complete sentences and no respiratory distress Auscult
--- NOTE | 2019-10-16 11:16 | PM.IMPN ---
Progress Note: A&P Assessment and Plan (1) Hypotension: Onset Date: ~10/15/19 Qualifiers: Hypotension type: unspecified hypotension type Qualified Code(s): I95.9 - Hypotension, unspecified Code(s): I95.9 - Hypotension, unspecified Status: Acute Assessment and Plan: Probably result of issue secondary to cholecystitis. After fluid resuscitation yesterday, blood pressure reviewed on 10/16/2019 and now stable. Has actually had elevated blood pressure times. Blood cultures with no growth to date. Urine culture pending. Will continue to monitor. (2) Acute cholecystitis: Onset Date: ~10/10/19 Code(s): K81.0 - Acute cholecystitis Status: Acute Assessment and Plan: CT abdomen/pelvis on admission consistent with acute cholecystitis. General surgery consulted and appreciate input. HIDA scan also consistent with acute cholecystitis. After discussion with General surgery, decision was made for percutaneous cholecystostomy drain. Unable to be done by ultrasound and done by CT scan guidance instead. LFTs remain elevated as expected but improving with total bilirubin down to 1.5, AST down to 2922 and ALT greater than 3750. KUB done on 10/15/2019 with nonobstructing left kidney stone noted on previous CT scans. CT scan abdomen/pelvis today with cholecystostomy tube in expected position, prominent wall thickening of gallbladder and pericholecystic inflammatory change consistent with acute cholecystitis, no intra or extrahepatic biliary duct dilatation and interval development of tiny right pleural effusion, small amount of ascites, mild body wall edema and increasing bilateral perinephric stranding as well as unchanged 2 mm stone at the lower pole of the left kidney. Clinically patient is feeling better. Now on full liquids. Will continue IV Zosyn. Continue IV fluids. KUB results with mild ileus. Continue to monitor. (3) Acute kidney injury: Code(s): N17.9 - Acute kidney failure, unspecified Status: Acute Assessment and Plan: Creatinine has increased to 5.20 today. Suspect combination of hypotension and in infectious issues but will consult nephrology for safety. I did speak with Dr. Mendoza who will see the patient later today. Renal ultrasound completed on 10/15/2019 with normal kidneys. Will continue to monitor kidney function. 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 Remains elevated. Lantus started last night and will increase to equivocal int dose of home long-acting insulin. Sliding scale insulin still available. Hemoglobin A1c 6.7. Will continue to hold home Lyrica for now. Will continue to monitor and adjust treatment as needed. (5) Benign essential HTN: Code(s): I10 - Essential (primary) hypertension Status: Chronic Assessment and Plan: Blood pressure reviewed on 10/16/2019. Did have elevated readings overnight for which patient received IV labetalol x2. Blood pressure now acceptable. Will continue to monitor. Will have IV hydralazine available if needed as need to continue to hold home valsartan with elevated creatinine level. (6) CAD (coronary artery disease): Qualifiers: Associated angina: without angina Coronary Disease-Associated Artery/Lesion type: bypass graft [place] vs. transplanted heart: [place] heart Qualified Code(s): I25.810 - Atherosclerosis of coronary artery bypass graft(s) without angina pectoris Code(s): I25.10 - Atherosclerotic heart disease of [place] coronary artery without angina pectoris Status
[2019-10-16 11:34] LABS: Glucose Point of Care 300 (65-105)
--- NOTE | 2019-10-16 14:29 | PM.CNNEP ---
Assessment and Plan Assessment and plan (1) Acute kidney injury: Code(s): N17.9 - Acute kidney failure, unspecified Status: Acute Assessment and Plan: The patient has acute kidney injury. It looks like his baseline creatinine is probably normal based on the fact that he had a creatinine of 1.2 early this admission. The patient does have significant diabetes with retinopathy and also longstanding hypertension and so could have some mild parenchymal kidney disease from those however does not seem severe. The patient has acute cholecystitis. Perhaps the infection has brought on acute tubular necrosis. His creatinine is rising quickly. Possibly he is catabolic from the infection and so is a high input of creatinine from his system. He probably was dehydrated when he got here with 4 days of belly pain and so could have pre renal azotemia. The dehydration on admission would also set him up for ATN. His blood pressure is relatively well controlled now and he was hypotensive yesterday. I am not sure what his outpatient blood pressures run but his if frequently out of control he might have dysautoregulation as his kidneys may be used to higher blood pressures. His volume status looks good right now. I would continue to give IV fluids at this point I doubt if he has some inflammatory or infiltrative disease at this point since it is so sudden during this infection event. He already had an ultrasound which rules out obstruction. He has a 2mm kidney stone in the lower pole of the left kidney. I do not think this is contributing to this clinical scenario. At this point I am going to get urine electrolytes and eosinophils. We will follow his numbers. We discussed that he might need dialysis if his creatinine continues to rise and if he develops symptoms or electrolyte issues resistant to medication approach. (2) Acute cholecystitis: Onset Date: ~10/10/19 Code(s): K81.0 - Acute cholecystitis Status: Acute Assessment and Plan: The patient has a cholecystostomy tube in. His liver enzymes are improved and his bilirubin is coming down. He seems to feel better and his fevers and white count are improved. I am hoping the kidneys follow suit soon. (3) HTN (hypertension) with goal to be determined: Code(s): I10 - Essential (primary) hypertension Status: Acute Assessment and Plan: His blood pressure was very high when he came in. It is unclear if this is because his pain was making his pressure high or if he is always out of control. At this point is blood pressure is better controlled. (4) CAD (coronary artery disease): Qualifiers: Coronary Disease-Associated Artery/Lesion type: bypass graft [place] vs. transplanted heart: [place] heart Associated angina: without angina Qualified Code(s): I25.810 - Atherosclerosis of coronary artery bypass graft(s) without angina pectoris Code(s): I25.10 - Atherosclerotic heart disease of [place] coronary artery without angina pectoris Status: Chronic Assessment and Plan: He is having no chest pain. (5) Left nephrolithiasis: Onset Date: Unknown Code(s): N20.0 - Calculus of kidney Status: Acute Assessment and Plan: He has got a stable 2mm kidney stone lower pole of the left kidney. History of Present Illness Reason for Consult Consult date: 10/16/19 Chief Complaint Chief complaint: Epigastric pain for the past 4 days++ History of Present Illness Narrative: Jason is a very pleasant 54-year-old gentleman who has multiple medical problems including diabetes, hypertension, coronary disease, hyperlipidemia, and now cholecystitis and renal failure. Into the hospital a couple of days ago with belly pain having gone on for 4 days at that time. He was evaluated and found to have cholecystitis. They wanted to do cholecystectomy but the patient refused so he had a cholecystostomy tube. On antibioti
[2019-10-16 16:02] LABS: Glucose Point of Care 262 (65-105)
[2019-10-16 16:08] LABS: Creatine Kinase 440 U/L (55-170)
[2019-10-16 17:22] LABS: Add Urine Microscopic? YES; Appearance Urine Clear (Clear); Bacteria Urine Trace /hpf; Bilirubin Urine Negative (Negative); Blood Urine 2+ (Negative); Color Urine Yellow (Yellow); Glucose Urine UA 3+ mg/dL (Negative); Ketones Urine Negative (Negative); Leukocyte Esterase Ur Negative LEU/UL (NEGATIVE); Nitrate Urine Negative (Negative); Protein Urine 2+ mg/dL (Negative); Squamous Epithelial Cell Urine Rare /hpf (Few); Urobilinogen Urine Negative mg/dL (<2.0); WBC Urine 0-3 /hpf (0-3)
[2019-10-16 17:25] LABS: Creatinine Urine 37.4 mg/dL; Total Protein Urine Random 53 mg/dL
[2019-10-16 17:33] LABS: Sodium Urine Random 71 meq/L
[2019-10-16] MEDS: INSULIN GLARGINE (*BKC) 100 UNITS/ML 48 UNITS SUB-Q (21:25)
[2019-10-16 21:43] LABS: Glucose Point of Care 224 (65-105)
[2019-10-17] MEDS: LACTATED RINGERS 1,000 ML 125 ML IV CONT ×3 (00:03→17:44)
--- NOTE | 2019-10-17 05:21 | PC.NURSE ---
At 0325 pt was found face down in the bathroom, pt unresponsive, Rapid Response called. At O500 transferred to ICU room 5
[2019-10-17 05:52] VITALS: BP 120/74; PULSE 72; RESP 16; TEMP 36.4; O2SAT 97
[2019-10-17 06:18] LABS: Basophils Percent Auto 0.4 % (0.2-1.2); Eosinophils Absolute Auto 0.2 K/mm3 (0-0.3); Eosinophils Percent Auto 1.8 % (0-4.4); Hematocrit 45.6 % (42.0-52.0); Hemoglobin 14.2 g/dL (14.0-18.0); Immature Granulocyte Absolute 0.05 K/mm3 (0.00-0.031); Immature Granulocyte Percent A 0.5 % (0-0.5); Lymphocytes Absolute Auto 0.77 K/mm3 (0.9-3.2); Lymphocytes Percent Auto 7.2 % (18.3-44.2); Mean Corpuscular HGB Conc 31.1 g/dl (32-36); Mean Corpuscular Hemoglobin 28.5 pg (26-34); Mean Corpuscular Volume 91.6 fl (80-100); Mean Platelet Volume 12.7 fl (7.4-10.4); Monocytes Absolute Auto 1.2 K/mm3 (0.1-0.6); Monocytes Percent Auto 11.4 % (2.6-8.5); Neutrophils Absolute Auto 8.5 K/mm3 (1.3-6.7); Neutrophils Percent Auto 78.7 % (45.5-73.1); Platelet Count Result 180 k/mm3 (150-375); Red Blood Count 4.98 M/mm3 (4.6-6.20); Red Cell Distribution Width 14.1 % (11.5-14.5); White Blood Count 10.7 K/mm3 (4.5-10.0)
[2019-10-17 06:34] LABS: Albumin Level 3.4 g/dL (3.5-5.1); Alkaline Phosphatase 205 U/L (38-126); Aspartate Amino Transferase 714 U/L (17-59); Bilirubin,Total 0.9 mg/dL (0.2-1.3); Blood Urea Nitrogen 72 mg/dL (9-20); Calcium 8.6 mg/dL (8.4-10.2); Carbon Dioxide 23 mmol/L (22-30); Chloride 99 mmol/L (98-107); Estimated CRCL calculation 18 ml/min; Estimated Glomerular Filt Rate 10; Glucose 170 mg/dL (75-110); Phosphorus 5.8 mg/dL (2.5-4.5); Potassium 4.5 mmol/L (3.4-5.0); Sodium 133 mmol/L (137-145)
[2019-10-17 07:42] LABS: Alanine Aminotransferase 2975 U/L (4-50)
[2019-10-17 08:39] LABS: Glucose Point of Care 155 (65-105)
--- NOTE | 2019-10-17 08:40 | PM.PNGS ---
Progress Note: A&P Assessment and Plan (1) Acute cholecystitis: Onset Date: ~10/10/19 Code(s): K81.0 - Acute cholecystitis Status: Acute Assessment and Plan: This seems to have been interrupted by placement of the cholecystostomy tube. This continues to drain clear brown bile. Patient denies any right upper quadrant pain today. From my point of view he could go home on 5 more days of antibiotic which needs to be renally dosed in view of his elevated creatinine. Will await results of further testing per Medicine and Nephrology regarding disposition. If stays in the hospital continue IV antibiotics and recheck liver function tests as these seem to be gradually coming down toward normal. (2) Type 2 diabetes mellitus with hyperglycemia: Onset Date: Unknown Code(s): E11.65 - Type 2 diabetes mellitus with hyperglycemia Status: Acute Assessment and Plan: Blood sugars way up today because he vomited is not eating it is difficult to control at this time. (3) Left nephrolithiasis: Onset Date: Unknown Code(s): N20.0 - Calculus of kidney Status: Acute Assessment and Plan: Noted on CT scan when admitted this date. It was a small stone within the lower pole of the left kidney. Additional Plan Await disposition from Medicine and Nephrology regarding worsening renal function. Continue IV antibiotics while in the hospital or change to 5 more days of oral if he goes home Continue drainage with current cholecystostomy tube Follow low-fat diet if he advance diet. Since nausea is improving will try sublingual Zofran for nausea and stop IV medications. Time Spent With Patient Time with patient: 15 - 25 minutes Subjective Subjective Date/Time Seen: 10/17/19 08:40 Patient is sitting up in the wound her chair when I came in the room. States that his nausea is significantly better. He did take 1 more dose early this morning. He is trying his full liquid diet now. One bowel movement overnight. Positive flatus. Denies any vomiting overnight. Denies any specific swelling in his legs. Has been up walking some. Review of Systems Constitutional: Constitutional: Reports as per HPI, Reports no additional constitutional complaints, Denies excessive sweating, Denies fatigue, Denies fever(s), Denies headache(s), Denies night sweats and Denies weakness Eyes: Eyes: Denies change in vision and Denies loss of vision ENT: Denies dysphagia, Denies dizziness, Denies headache(s) and Reports other (Mucous Membranes moist.) Cardiovascular: Cardiovascular: Denies chest pain, Denies syncope, Denies leg edema, Denies lightheadedness, Denies radiating jaw, neck or arm pain and Denies dyspnea Respiratory: Respiratory: Denies cough, Denies pain on inspiration, Denies dyspnea and Denies wheezing Gastrointestinal: Gastrointestinal: Reports no additional gastrointestinal complaints and Reports nausea (Without recent vomiting) Genitourinary: Comments: Known small stone in inferior pole of the kidney not moved on recent CT Musculoskeletal: Musculoskeletal: Denies deformity, Denies joint swelling, Reports numbness (Diabetic peripheral neuropathy), Denies radiating pain into limb and Reports other (No calf swelling or edema) Integumentary/Breasts: Skin/Breast: Reports system reviewed and no additional complaints, except as docu, Denies pruritus, Denies wounds and Denies jaundice Neurologic: Denies dizziness, Denies syncope, Denies headache(s), Denies loss of vision, Reports numbness (Diabetic peripheral neuropathy), Denies tremor(s) and Denies weakness Psychiatric: Psychiatric: Denies anxiety and Denies depression Endocrine: Endocrine: Denies cold intolerance, Denies excessive sweating, Denies fatigue and Denies heat intolerance Hematologic/Lymphatic: Hematologic/Lymphatic: Denies easy bleeding and Denies easy bruising Allergic/Immunologic: Allergic/Immunologic: Denies wheezing Exam Const: General:
[2019-10-17] MEDS: ONDANSETRON HCL ODT 4 MG TABLET PO ×2 (09:23→17:41)
--- NOTE | 2019-10-17 11:55 | PM.IMPN ---
Progress Note: A&P Assessment and Plan (1) Acute cholecystitis: Onset Date: ~10/10/19 Code(s): K81.0 - Acute cholecystitis Status: Acute Assessment and Plan: CT abdomen/pelvis on admission consistent with acute cholecystitis. General surgery consulted and appreciate input. HIDA scan also consistent with acute cholecystitis. After discussion with General surgery, decision was made for percutaneous cholecystostomy drain. Unable to be done by ultrasound and done by CT scan guidance instead. KUB done on 10/15/2019 with nonobstructing left kidney stone noted on previous CT scans. CT scan abdomen/pelvis today with cholecystostomy tube in expected position, prominent wall thickening of gallbladder and pericholecystic inflammatory change consistent with acute cholecystitis, no intra or extrahepatic biliary duct dilatation and interval development of tiny right pleural effusion, small amount of ascites, mild body wall edema and increasing bilateral perinephric stranding as well as unchanged 2 mm stone at the lower pole of the left kidney. Clinically has improved. LFTs decreasing with AST 714 and ALT 2975. Will need eventual gallbladder removal. Will be placed on antibiotics at discharge. (2) Acute kidney injury: Code(s): N17.9 - Acute kidney failure, unspecified Status: Acute Assessment and Plan: Nephrology consulted and appreciate input. Most likely result of hypotension infection. Creatinine has increased to 6.00 today although patient's urine volume is normal and urine clear. Renal ultrasound complete on 10/15/2019 with normal kidneys. Will continue to follow kidney function. May repeat labs this afternoon. (3) Hypotension: Onset Date: ~10/15/19 Qualifiers: Hypotension type: unspecified hypotension type Qualified Code(s): I95.9 - Hypotension, unspecified Code(s): I95.9 - Hypotension, unspecified Status: Acute Assessment and Plan: Probably result of issue secondary to cholecystitis. Blood pressure reviewed on 10/17/2019 and now increasing. Treatment of hypertension as noted below. (4) Type 2 diabetes mellitus with diabetic polyneuropathy: Qualifiers: Diabetes mellitus jacket changer insulin use: with longterm use Qualified Code(s): E11.42 - Type 2 diabetes mellitus with diabetic polyneuropathy; Z79.4 - thread weaver (current) use of insulin Code(s): E11.42 - Type 2 diabetes mellitus with diabetic polyneuropathy Status: Chronic Assessment and Plan: Glucose reviewed on 10/17/2019 and now improving with adjustment of Lantus yesterday to equivalent dose of his home long-acting insulin. Sliding scale insulin still available. Hemoglobin A1c 6.7. Will continue to hold home Lyrica for now. Will continue to monitor and adjust treatment as needed. (5) Benign essential HTN: Code(s): I10 - Essential (primary) hypertension Status: Chronic Assessment and Plan: Blood pressure reviewed on 10/17/2019. Does still have some elevated readings but also normal readings. Continue to hold home valsartan with elevated creatinine level. IV hydralazine available if needed. Continue to monitor. (6) CAD (coronary artery disease): Qualifiers: Associated angina: without angina Coronary Disease-Associated Artery/Lesion type: bypass graft [place] vs. transplanted heart: [place] heart Qualified Code(s): I25.810 - Atherosclerosis of coronary artery bypass graft(s) without angina pectoris Code(s): I25.10 - Atherosclerotic heart disease of [place] coronary artery without angina pectoris Status: Chronic Assessment and Plan: Will continue to hold Brilinta and rosuvastatin. Resume once able. (7) Mixed hyperlipidemia: Code(s): E78.2 - Mixed hyperlipidemia Status: Chronic Assessment and Plan: Continue to hold rosuvastatin. (8) DVT prophylaxis: Code(s): Z29.9 - Encounter for prophylacti
[2019-10-17 13:31] LABS: Glucose Point of Care 151 (65-105)
[2019-10-17 14:00] VITALS: BP 118/58; PULSE 84; RESP 18; TEMP 36.6; O2SAT 97
[2019-10-17 15:57] LABS: Blood Urea Nitrogen 72 mg/dL (9-20); Calcium 8.6 mg/dL (8.4-10.2); Carbon Dioxide 32 mmol/L (22-30); Chloride 96 mmol/L (98-107); Estimated CRCL calculation 18 ml/min; Estimated Glomerular Filt Rate 10; Glucose 217 mg/dL (75-110); Potassium 5.2 mmol/L (3.4-5.0); Sodium 133 mmol/L (137-145)
--- NOTE | 2019-10-17 17:37 | PM.PNNEP ---
Progress Note: A&P Assessment and Plan (1) Acute kidney injury: Code(s): N17.9 - Acute kidney failure, unspecified Status: Acute Assessment and Plan: The patient has acute kidney injury. Renal ultrasound is unremarkable. Urine electrolytes are okay. Urinalysis is unremarkable except for some blood. Urine output is good. Creatinine rashad but not by as much. Hopefully he is turning around soon (2) Acute cholecystitis: Onset Date: ~10/10/19 Code(s): K81.0 - Acute cholecystitis Status: Acute Assessment and Plan: The patient has a cholecystostomy tube in. His liver enzymes are improved and his bilirubin are coming down. He feels better (3) HTN (hypertension) with goal to be determined: Code(s): I10 - Essential (primary) hypertension Status: Acute Assessment and Plan: His blood pressure is under good control. (4) CAD (coronary artery disease): Qualifiers: Coronary Disease-Associated Artery/Lesion type: bypass graft [place] vs. transplanted heart: [place] heart Associated angina: without angina Qualified Code(s): I25.810 - Atherosclerosis of coronary artery bypass graft(s) without angina pectoris Code(s): I25.10 - Atherosclerotic heart disease of [place] coronary artery without angina pectoris Status: Chronic Assessment and Plan: He is having no chest pain. (5) Left nephrolithiasis: Onset Date: Unknown Code(s): N20.0 - Calculus of kidney Status: Acute Assessment and Plan: He has got a stable 2mm kidney stone lower pole of the left kidney. Subjective Date/time seen: 10/17/19 17:37 Interval history: Patient is feeling okay. No chest pain or shortness of breath Sitting up in a chair. is in the room Exam Narrative: Exam Narrative: Well developed well-nourished in no acute distress Lungs clear Heart regular without rub Abdomen bowel sounds positive soft nontender Extremities no edema Skin no rash Objective Data Vital Signs Vital Signs: Vital Signs - 24 hr 10/16/19 21:41 10/17/19 05:52 10/17/19 14:00 Temperature 36.2 C L 36.4 C 36.6 C Pulse Rate 73 72 84 Respiratory Rate 18 16 18 Blood Pressure 166/81 H 120/74 118/58 L Pulse Oximetry 96 97 97 Intake/Output Intake/Output: Intake & Output 10/14/19 10/15/19 10/16/19 10/17/19 23:59 23:59 23:59 23:59 Intake Total 3300 8720 2790 3315 Output Total 126 182 7050 1300 Balance 2672 6712 210 2014 Meds/Results Medications: Active Medications Generic Name Dose Route Start Last Admin Trade Name Freq PRN Reason Stop Dose Admin Acetaminophen 1,000 mg 10/14/19 15:38 Tylenol Tablet PO Q6H PRN Mild Pain (1-3) or Fever Hydrocodone Bitart/Acetaminophen 1 tab 10/14/19 15:37 10/15/19 21:32 [place] 5-325 Mg PO 1 tab Q6H PRN Administration Pain Rated 4-6 Dextrose 12.5 gm 10/13/19 23:02 Dextrose 50% Syringe IV PUSH PRN PRN Hypoglycemia Protocol Glucagon 1 mg 10/13/19 23:02 Glucagon For Inj IM PRN PRN Hypoglycemia Protocol Hydralazine HCl 10 mg 10/16/19 14:21 Apresoline Hcl Inj IV PUSH Q6HR PRN Blood Pressure - High Hydromorphone HCl 1 mg 10/14/19 18:36 10/16/19 19:20 Dilaudid Inj IV PUSH 1 mg Q3H PRN Administration Pain Rated 4-6 Hydromorphone HCl 1.5 mg 10/14/19 18:46 10/14/19 18:30 Dilaudid Inj IV PUSH 1.5 mg Q3H PRN Administration Pain Rated 7-10 Piperacillin/Tazobactam/Dextrose 3.375 gm in 50 mls @ 100 mls/hr 10/14/19 06:00 10/17/19 12:38 Zosyn 3.375 Gm/D5w 50ml Pm IVPB Infused Q6HR GAYE Infusion Lactated Ringer's 1,000 mls @ 125 mls/hr 10/13/19 20:55 10/17/19 09:23 Lr - Lactated Ringers Iv IV CONT 125 mls/hr .Q8H GAYE Administration Dextrose 1,000 mls @ 100 mls/hr 10/13/19 23:02 Dextrose 5% 1,000 Ml IVPB PRN PRN Hypoglycemia Protocol Insulin Aspart
[2019-10-17 17:52] LABS: Glucose Point of Care 177 (65-105)
[2019-10-17] MEDS: HYDROMORPHONE HCL 1 MG/ML INJ IV PUSH (20:27)
[2019-10-17] MEDS: INSULIN GLARGINE (*BKC) 100 UNITS/ML 48 UNITS SUB-Q (20:29)
[2019-10-17 21:48] VITALS: BP 152/80; PULSE 74; RESP 20; TEMP 36.7; O2SAT 95
[2019-10-18] MEDS: ONDANSETRON HCL ODT 4 MG TABLET PO (02:42)
[2019-10-18] MEDS: LACTATED RINGERS 1,000 ML 125 ML IV CONT (02:42)
[2019-10-18] MEDS: HYDROMORPHONE HCL 1 MG/ML INJ IV PUSH (03:15)
[2019-10-18 06:22] LABS: Glucose Point of Care 226 (65-105)
[2019-10-18 06:24] VITALS: BP 184/89; PULSE 79; RESP 20; TEMP 36.1; O2SAT 96
[2019-10-18 06:40] LABS: Albumin Level 3.8 g/dL (3.5-5.1); Alkaline Phosphatase 191 U/L (38-126); Aspartate Amino Transferase 385 U/L (17-59); Bilirubin,Total 0.9 mg/dL (0.2-1.3); Blood Urea Nitrogen 72 mg/dL (9-20); Calcium 9.1 mg/dL (8.4-10.2); Carbon Dioxide 34 mmol/L (22-30); Chloride 97 mmol/L (98-107); Estimated CRCL calculation 16 ml/min; Estimated Glomerular Filt Rate 9; Glucose 96 mg/dL (75-110); Potassium 4.9 mmol/L (3.4-5.0); Sodium 137 mmol/L (137-145)
[2019-10-18 06:41] LABS: Alanine Aminotransferase 2199 U/L (4-50)
[2019-10-18] MEDS: hydrALAZINE HCL 20 MG/ML VIAL 10 MG IV PUSH (08:47)
--- NOTE | 2019-10-18 10:19 | PM.PNNEP ---
Progress Note: A&P Assessment and Plan (1) Acute kidney injury: Code(s): N17.9 - Acute kidney failure, unspecified Status: Acute Assessment and Plan: The patient has acute kidney injury. Renal ultrasound is unremarkable. Urine electrolytes are okay. Urinalysis is unremarkable except for some blood. Urine output is good. Creatinine 1 to 3 to 5 to 6 to 6.6. certainly reaching a plateau but no descent yet so need to keep possibly early uremia with the gagging but not enough to start dialysis. on clear liquids. ?advance? Hopefully he is turning around soon (2) Acute cholecystitis: Onset Date: ~10/10/19 Code(s): K81.0 - Acute cholecystitis Status: Acute Assessment and Plan: The patient has a cholecystostomy tube in. His liver enzymes are improved and his bilirubin are coming down. He feels better (3) HTN (hypertension) with goal to be determined: Code(s): I10 - Essential (primary) hypertension Status: Acute Assessment and Plan: His blood pressure is high now. will cut back fluids (stop if diet advances) and start amlodipine. was on valsartan as an outpatient but won't use this due to anne (4) CAD (coronary artery disease): Qualifiers: Coronary Disease-Associated Artery/Lesion type: bypass graft [place] vs. transplanted heart: [place] heart Associated angina: without angina Qualified Code(s): I25.810 - Atherosclerosis of coronary artery bypass graft(s) without angina pectoris Code(s): I25.10 - Atherosclerotic heart disease of [place] coronary artery without angina pectoris Status: Chronic Assessment and Plan: He is having no chest pain. (5) Left nephrolithiasis: Onset Date: Unknown Code(s): N20.0 - Calculus of kidney Status: Acute Assessment and Plan: He has got a stable 2mm kidney stone lower pole of the left kidney. Subjective Date/time seen: 10/18/19 10:19 Interval history: Patient is feeling okay. No chest pain or shortness of breath he had a little gagging this morning. tolerating clear liquids. he is tired because the waken him for vitals frequently. Exam Narrative: Exam Narrative: Well developed well-nourished in no acute distress Lungs clear Heart regular without rub Abdomen bowel sounds positive soft nontender Extremities no edema Skin no rash or sq nodules Objective Data Vital Signs Vital Signs: Vital Signs - 24 hr 10/17/19 14:00 10/17/19 21:48 10/18/19 06:24 Temperature 36.6 C 36.7 C 36.1 C L Pulse Rate 84 74 79 Respiratory Rate 18 20 20 Blood Pressure 118/58 L 152/80 H 184/89 H Pulse Oximetry 97 95 96 Intake/Output Intake/Output: Intake & Output 10/15/19 10/16/19 10/17/19 10/18/19 23:59 23:59 23:59 23:59 Intake Total 4820 2790 4535 1904 Output Total 120 2580 1450 1880 Balance 4700 210 3085 24 Meds/Results Medications: Active Medications Generic Name Dose Route Start Last Admin Trade Name Freq PRN Reason Stop Dose Admin Acetaminophen 1,000 mg 10/14/19 15:38 Tylenol Tablet PO Q6H PRN Mild Pain (1-3) or Fever Hydrocodone Bitart/Acetaminophen 1 tab 10/14/19 15:37 10/15/19 21:32 [place] 5-325 Mg PO 1 tab Q6H PRN Administration Pain Rated 4-6 Dextrose 12.5 gm 10/13/19 23:02 Dextrose 50% Syringe IV PUSH PRN PRN Hypoglycemia Protocol Glucagon 1 mg 10/13/19 23:02 Glucagon For Inj IM PRN PRN Hypoglycemia Protocol Hydralazine HCl 10 mg 10/16/19 14:21 10/18/19 08:47 Apresoline Hcl Inj IV PUSH 10 mg Q6HR PRN Administration Blood Pressure - High Hydromorphone HCl 1 mg 10/14/19 18:36 10/18/19 03:15 Dilaudid Inj IV PUSH 1 mg Q3H PRN Administration Pain Rated 4-6 Hydromorphone HCl 1.5 mg 10/14/19 18:46 10/14/19 18:30 Dilaudid Inj IV PUSH 1.5 mg Q3H PRN Administration Pain Rated 7-10 Piperacillin/Tazobactam/Dextrose 3.375
--- NOTE | 2019-10-18 11:06 | PCNFU ---
Nutrition Follow-Up Complete: Inadequate oral intake at present related to cholecystitis as evidenced by NPO status. Patient to consume 50% of meals or more on advanced diet Goal:Progressing towards goal. Pt current nutrition is Full Liquids. Nutrition recommendation: advance as tolerated per MD. Last recorded weight is 115.6 kg. Bowel Motility:+BM 10/14 last reported Labs Reviewed:GFR 9,BUN 72,Cr 6.6 Meds Noted:Dilaudid, Novolog Additional Notes: Spoke with patient today, tolerating liquids. He is also receiving Compact BID providing an additional 220 kcals and 10 gms protein. Agree with current nutrition at this time. Monitoring: Follow up in 5 days.
--- NOTE | 2019-10-18 11:14 | PM.IMPN ---
Progress Note: A&P Assessment and Plan (1) Acute cholecystitis: Onset Date: ~10/10/19 Code(s): K81.0 - Acute cholecystitis Status: Acute Assessment and Plan: CT abdomen/pelvis on admission consistent with acute cholecystitis. General surgery consulted and appreciate input. HIDA scan also consistent with acute cholecystitis. After discussion with General surgery, decision was made for percutaneous cholecystostomy drain. Unable to be done by ultrasound and done by CT scan guidance instead. KUB done on 10/15/2019 with nonobstructing left kidney stone noted on previous CT scans. CT scan abdomen/pelvis today with cholecystostomy tube in expected position, prominent wall thickening of gallbladder and pericholecystic inflammatory change consistent with acute cholecystitis, no intra or extrahepatic biliary duct dilatation and interval development of tiny right pleural effusion, small amount of ascites, mild body wall edema and increasing bilateral perinephric stranding as well as unchanged 2 mm stone at the lower pole of the left kidney. LFTs decreasing with AST 385 and ALT 2199. Will need eventual gallbladder removal. Will be placed on antibiotics at discharge. Clinically improving. Diet advanced to diabetic and low-fat. Awaiting improvement of kidney function prior to discharge. (2) Acute kidney injury: Code(s): N17.9 - Acute kidney failure, unspecified Status: Acute Assessment and Plan: Nephrology consulted and appreciate input. Most likely result of hypotension infection. Creatinine has increased to 6.60 today Renal ultrasound complete on 10/15/2019 with normal kidneys. Continues to urinate well. Low-dose IV fluids in place. Holding nephrotoxic agents. Would like to see creatinine improving prior to discharge. Will follow. (3) Hypotension: Onset Date: ~10/15/19 Qualifiers: Hypotension type: unspecified hypotension type Qualified Code(s): I95.9 - Hypotension, unspecified Code(s): I95.9 - Hypotension, unspecified Status: Resolved Assessment and Plan: Probably result of issue secondary to cholecystitis. Blood pressure reviewed on 10/18/2019 and as noted below. Treatment of hypertension as noted below. (4) Type 2 diabetes mellitus with diabetic polyneuropathy: Qualifiers: Diabetes mellitus rat exterminator insulin use: with detention use Qualified Code(s): E11.42 - Type 2 diabetes mellitus with diabetic polyneuropathy; Z79.4 - shelter (current) use of insulin Code(s): E11.42 - Type 2 diabetes mellitus with diabetic polyneuropathy Status: Chronic Assessment and Plan: Glucose reviewed on 10/18/2019 and now controlled. Hemoglobin A1c 6.7. Will continue current dose of Lantus. Sliding scale insulin available as needed. Continue to hold home Lyrica. Will continue to monitor. (5) Benign essential HTN: Code(s): I10 - Essential (primary) hypertension Status: Chronic Assessment and Plan: Blood pressure reviewed on 10/18/2019. Still with some elevated readings but better this afternoon. Continue to hold home valsartan. IV hydralazine remains available if needed. Will continue to monitor. (6) CAD (coronary artery disease): Qualifiers: Associated angina: without angina Coronary Disease-Associated Artery/Lesion type: bypass graft [place] vs. transplanted heart: [place] heart Qualified Code(s): I25.810 - Atherosclerosis of coronary artery bypass graft(s) without angina pectoris Code(s): I25.10 - Atherosclerotic heart disease of [place] coronary artery without angina pectoris Status: Chronic Assessment and Plan: Will continue to hold Brilinta and rosuvastatin. Resume once able. (7) Mixed hyperlipidemia: Code(s): E78.2 - Mixed hyperlipidemia Status: Chronic Assessment and Plan: Continue to hold rosuvastatin. (8) DVT prophylaxis: Code(s): Z29.9 - Encounte
[2019-10-18] MEDS: LACTATED RINGERS 1,000 ML 50 ML IV CONT (11:21)
[2019-10-18 12:11] LABS: Glucose Point of Care 99 (65-105)
--- NOTE | 2019-10-18 13:32 | PM.PNGS ---
Progress Note: A&P Assessment and Plan (1) Acute cholecystitis: Onset Date: ~10/10/19 Code(s): K81.0 - Acute cholecystitis Status: Acute Assessment and Plan: This seems to have been interrupted by placement of the cholecystostomy tube. This continues to drain clear brown bile. Patient denies any right upper quadrant pain today. From my point of view he could go home on 5 more days of antibiotic which needs to be renally dosed in view of his elevated creatinine. Will await results of further testing per Medicine and Nephrology regarding disposition. If stays in the hospital continue IV antibiotics and recheck liver function tests as these seem to be gradually coming down toward normal. (2) Type 2 diabetes mellitus with hyperglycemia: Onset Date: Unknown Code(s): E11.65 - Type 2 diabetes mellitus with hyperglycemia Status: Acute Assessment and Plan: Tolerating a diet today. On carbohydrate controlled. (3) Left nephrolithiasis: Onset Date: Unknown Code(s): N20.0 - Calculus of kidney Status: Acute Assessment and Plan: Noted on CT scan when admitted this date. It was a small stone within the lower pole of the left kidney. This was also still present on the follow-up CT a few days ago. Additional Plan Await disposition from Medicine and Nephrology regarding worsening renal function. Continue IV antibiotics while in the hospital or change to 5 more days of oral if he goes home Continue drainage with current cholecystostomy tube Follow low-fat diet if he advances diet. Since nausea is improving will try sublingual Zofran for nausea and stop IV medications. Follow-up with me in 2 weeks if he goes home this weekend. Subjective Subjective Date/Time Seen: 10/18/19 13:32 Patient is sitting up in longer chair. Denies much abdominal pain today. Tolerating a soft diet out. ( controlled carbohydrate diabetic). Does not feel short of breath. Has been walking some. Did wear SCD hose during the night. Review of Systems Constitutional: Constitutional: Reports no additional constitutional complaints ENT: Reports other (Mucous Membranes moist.) Cardiovascular: Cardiovascular: Denies dyspnea Respiratory: Respiratory: Denies pain on inspiration and Denies dyspnea Musculoskeletal: Musculoskeletal: Reports other (No calf swelling or edema) Integumentary/Breasts: Skin/Breast: Reports system reviewed and no additional complaints, except as docu Exam Const: General: comfortable, no acute distress, alert and awake Nutritional Appearance: overweight Orientation/consciousness: patient oriented x3 Limitations: no limitations HENMT: Head: normal to inspection, normocephalic and atraumatic Ears: hearing grossly normal bilaterally and external ears normal General nose exam: Normal external nose present Mouth: Yes Normal oral and palatal mucosa present and Yes moist mucous membranes Eyes: General: appearance normal, both eyes and all related structures Sclera: sclerae normal EOM: EOMs intact bilaterally Neck: Neck: normal visual inspection and full ROM Chest: Chest palpation & inspection: normal inspection of the chest Resp: Effort & Inspection: normal respiratory effort, able to speak in complete sentences and no respiratory distress Auscultation: clear to auscultation bilaterally Cardio: Jugular venous distension: no JVD Rate: regular rate Rhythm: regular rhythm Heart sounds: S1 normal heart sound present and S2 normal heart sound present GI: Inspection: normal to inspection, non-distended, obesity, scar (Two small substernal scars) and other ( Cholecystostomy drain exiting a site in the right upper quadrant.) Auscultation: normal bowel sounds and Hypoactive bowel sounds present Rectal Exam: deferred Other: Exit site for the cholecystostomy tube is high near the rib margin on the right. Patient has active bowel sounds. Abdomen otherwise unremarkable. Skin:
[2019-10-18 13:58] VITALS: PULSE 79
[2019-10-18] MEDS: METOPROLOL SUCCINATE EXT REL 25 MG TABCR PO (13:58)
[2019-10-18 14:00] VITALS: BP 133/72; PULSE 87; RESP 16; TEMP 36.8; O2SAT 97
[2019-10-18 18:03] LABS: Glucose Point of Care 170 (65-105)
[2019-10-18 20:00] VITALS: BP 161/79; PULSE 77; RESP 20; TEMP 36.7; O2SAT 97
[2019-10-18 21:07] LABS: Glucose Point of Care 136 (65-105)
[2019-10-18] MEDS: INSULIN GLARGINE (*BKC) 100 UNITS/ML 48 UNITS SUB-Q (21:44)
[2019-10-19 00:25] VITALS: BP 177/91; PULSE 78; RESP 20; TEMP 36.8; O2SAT 96
[2019-10-19] MEDS: LACTATED RINGERS 1,000 ML 50 ML IV CONT (04:30)
[2019-10-19 06:00] VITALS: BP 167/82; PULSE 73; RESP 20; TEMP 36.6; O2SAT 97
[2019-10-19 06:38] LABS: Basophils Percent Auto 0.5 % (0.2-1.2); Eosinophils Absolute Auto 0.4 K/mm3 (0-0.3); Eosinophils Percent Auto 4.3 % (0-4.4); Hematocrit 43.7 % (42.0-52.0); Immature Granulocyte Absolute 0.05 K/mm3 (0.00-0.031); Immature Granulocyte Percent A 0.6 % (0-0.5); Lymphocytes Absolute Auto 0.96 K/mm3 (0.9-3.2); Lymphocytes Percent Auto 11.5 % (18.3-44.2); Mean Corpuscular Hemoglobin 28.5 pg (26-34); Mean Corpuscular Volume 88.8 fl (80-100); Mean Platelet Volume 12.1 fl (7.4-10.4); Monocytes Percent Auto 11.5 % (2.6-8.5); Neutrophils Percent Auto 71.6 % (45.5-73.1); Platelet Count Result 250 k/mm3 (150-375); Red Blood Count 4.92 M/mm3 (4.6-6.20); Red Cell Distribution Width 14.2 % (11.5-14.5); White Blood Count 8.3 K/mm3 (4.5-10.0)
[2019-10-19 06:59] LABS: Albumin Level 3.5 g/dL (3.5-5.1); Alkaline Phosphatase 156 U/L (38-126); Aspartate Amino Transferase 219 U/L (17-59); Bilirubin,Total 0.9 mg/dL (0.2-1.3); Blood Urea Nitrogen 67 mg/dL (9-20); Calcium 8.8 mg/dL (8.4-10.2); Carbon Dioxide 32 mmol/L (22-30); Chloride 97 mmol/L (98-107); Estimated CRCL calculation 17 ml/min; Estimated Glomerular Filt Rate 9; Glucose 109 mg/dL (75-110); Lipase 291 U/L (23-300); Phosphorus 4.8 mg/dL (2.5-4.5); Potassium 4.9 mmol/L (3.4-5.0); Sodium 137 mmol/L (137-145)
[2019-10-19 07:43] LABS: Glucose Point of Care 94 (65-105)
[2019-10-19 08:08] LABS: Alanine Aminotransferase 1471 U/L (4-50)
[2019-10-19 08:20] VITALS: PULSE 84
[2019-10-19] MEDS: METOPROLOL SUCCINATE EXT REL 25 MG TABCR PO (08:20)
--- NOTE | 2019-10-19 08:44 | PM.PNGS ---
Progress Note: A&P Assessment and Plan (1) Acute cholecystitis: Onset Date: ~10/10/19 Code(s): K81.0 - Acute cholecystitis Status: Acute Assessment and Plan: Improved with cholecystostomy tube placement. Tolerating low-fat diet. Creatinine still pretty high but at least starting to change direction. Can go home on oral antibiotics when okay with hospitalist and Nephrology. Follow-up with Dr. Ramirez in 2 weeks. (2) Acute kidney injury: Code(s): N17.9 - Acute kidney failure, unspecified Status: Acute Assessment and Plan: Slight decrease in creatinine today. (3) Antiplatelet or antithrombotic long-term use: Code(s): Z79.02 - termite treater (current) use of antithrombotics/antiplatelets Status: Acute Assessment and Plan: On Brilinta (4) Type 2 diabetes mellitus with diabetic polyneuropathy: Qualifiers: Diabetes mellitus senior care insulin use: with termite exterminator use Qualified Code(s): E11.42 - Type 2 diabetes mellitus with diabetic polyneuropathy; Z79.4 - [facility]PC (current) use of insulin Code(s): E11.42 - Type 2 diabetes mellitus with diabetic polyneuropathy Status: Chronic (5) FPC (current) use of insulin: Code(s): Z79.4 - FPC (current) use of insulin Status: Acute Subjective Subjective Date/Time Seen: 10/19/19 08:44 Patient reports: no new complaints, feels better, pain is less, tolerating a regular diet and afebrile Interval history: Wants to go home Review of Systems Review of Systems: All systems reviewed & are unremarkable except as noted in HPI and below Constitutional: Constitutional: Denies headache(s) ENT: Denies headache(s) Cardiovascular: Cardiovascular: Denies chest pain and Denies dyspnea Respiratory: Respiratory: Denies cough and Denies dyspnea Gastrointestinal: Gastrointestinal: Reports as per HPI Neurologic: Denies confusion and Denies headache(s) Psychiatric: Psychiatric: Denies confusion Exam Const: General: comfortable and no acute distress; No confusion Orientation/consciousness: patient oriented x3 and No confusion Resp: Effort & Inspection: normal respiratory effort Auscultation: clear to auscultation bilaterally Cardio: Rate: regular rate Rhythm: regular rhythm GI: Inspection: non-distended, incision (Cholecystostomy tube draining bile, minimal tenderness) and obesity GI Palp: Yes Soft to palpation, No Tenderness to palpation present (GI), No Guarding due to palpation present (GI) and No Rebound tenderness present Auscultation: normal bowel sounds Neuro: General: patient oriented x3, no focal motor deficits and No confusion Extrem: General: no calf tenderness and no edema Psych: Affect: normal affect Insight: Good insight present (Psych) Judgement: Good judgement present (Psych) Objective Data Vital Signs Vital Signs: Vital Signs - 24 hr 10/18/19 13:58 10/18/19 14:00 10/18/19 20:00 Temperature 36.8 C 36.7 C Pulse Rate 79 87 77 Respiratory Rate 16 20 Blood Pressure 133/72 161/79 H Pulse Oximetry 97 97 10/19/19 00:25 10/19/19 06:00 10/19/19 08:20 Temperature 36.8 C 36.6 C Pulse Rate 78 73 84 Respiratory Rate 20 20 Blood Pressure 177/91 H 167/82 H Pulse Oximetry 96 97 Intake/Output Intake/Output: Intake & Output 10/16/19 10/17/19 10/18/19 10/19/19 23:59 23:59 23:59 23:59 Intake Total 2790 4535 3870 2230 Output Total 2580 1450 2890 400 Balance 210 3085 980 1830 Meds/Results Medications: Active Medications Generic Name Dose Route Start Last Admin Trade Name Freq PRN Reason Stop Dose Admin Acetaminophen 1,000 mg 10/14/19 15:38 Tylenol Tablet PO Q6H PRN Mild Pain (1-3) or Fever Hydrocodone Bitart/Acetaminophen 1 tab 10/14/19 15:37 10/18/19 11:23 [place] 5-325 Mg PO 1 tab Q6H PRN Administration Pain Rated 4-6 Dextrose 12.5 gm 10/13/19 23:02 Dextrose 50% Syringe IV PUSH PRN PRN
--- NOTE | 2019-10-19 10:28 | PM.PNNEP ---
Progress Note: A&P Assessment and Plan (1) Acute kidney injury: Code(s): N17.9 - Acute kidney failure, unspecified Status: Acute Assessment and Plan: The patient has acute kidney injury. Renal ultrasound is unremarkable. Urine electrolytes are okay. Urinalysis is unremarkable except for some blood. Urine output is good. Creatinine 1 to 3 to 5 to 6 to 6.6 and now 6.5. It looks like he is starting to turn around. Long discussion with the patient. He is extremely eager for discharge. Will check another creatinine tomorrow. If it is better any still doing this well he can go home. (2) Acute cholecystitis: Onset Date: ~10/10/19 Code(s): K81.0 - Acute cholecystitis Status: Acute Assessment and Plan: The patient has a cholecystostomy tube in. His liver enzymes continue to improve and his bilirubin is normal. He feels better (3) HTN (hypertension) with goal to be determined: Code(s): I10 - Essential (primary) hypertension Status: Acute Assessment and Plan: His blood pressure is high still. He is eating fine. Will stop IV fluids. I started him on amlodipine but it turns out he has been on this in the past and had side effects. So now he is getting metoprolol. (4) CAD (coronary artery disease): Qualifiers: Coronary Disease-Associated Artery/Lesion type: bypass graft [place] vs. transplanted heart: [place] heart Associated angina: without angina Qualified Code(s): I25.810 - Atherosclerosis of coronary artery bypass graft(s) without angina pectoris Code(s): I25.10 - Atherosclerotic heart disease of [place] coronary artery without angina pectoris Status: Chronic Assessment and Plan: He is having no chest pain. (5) Left nephrolithiasis: Onset Date: Unknown Code(s): N20.0 - Calculus of kidney Status: Acute Assessment and Plan: He has got a stable 2mm kidney stone lower pole of the left kidney. Subjective Date/time seen: 10/19/19 10:28 Interval history: Patient is feeling okay. Now on a diabetic diet. He is doing well. Eating fine without nausea. No shortness of breath and no swelling. Walking in the halls. Exam Narrative: Exam Narrative: Well developed well-nourished in no acute distress Lungs clear to auscultation Heart regular without rub Abdomen bowel sounds positive soft nontender Extremities no edema Skin no rash Objective Data Vital Signs Vital Signs: Vital Signs - 24 hr 10/18/19 13:58 10/18/19 14:00 10/18/19 20:00 Temperature 36.8 C 36.7 C Pulse Rate 79 87 77 Respiratory Rate 16 20 Blood Pressure 133/72 161/79 H Pulse Oximetry 97 97 10/19/19 00:25 10/19/19 06:00 10/19/19 08:20 Temperature 36.8 C 36.6 C Pulse Rate 78 73 84 Respiratory Rate 20 20 Blood Pressure 177/91 H 167/82 H Pulse Oximetry 96 97 Intake/Output Intake/Output: Intake & Output 10/16/19 10/17/19 10/18/19 10/19/19 23:59 23:59 23:59 23:59 Intake Total 2790 4535 3870 2470 Output Total 2580 1450 2890 400 Balance 210 3085 980 2070 Meds/Results Medications: Active Medications Generic Name Dose Route Start Last Admin Trade Name Freq PRN Reason Stop Dose Admin Acetaminophen 1,000 mg 10/14/19 15:38 Tylenol Tablet PO Q6H PRN Mild Pain (1-3) or Fever Hydrocodone Bitart/Acetaminophen 1 tab 10/14/19 15:37 10/18/19 11:23 [place] 5-325 Mg PO 1 tab Q6H PRN Administration Pain Rated 4-6 Dextrose 12.5 gm 10/13/19 23:02 Dextrose 50% Syringe IV PUSH PRN PRN Hypoglycemia Protocol Glucagon 1 mg 10/13/19 23:02 Glucagon For Inj IM PRN PRN Hypoglycemia Protocol Hydralazine HCl 10 mg 10/16/19 14:21 10/18/19 08:47 Apresoline Hcl Inj IV PUSH 10 mg Q6HR PRN Administration Blood Pressure - High Hydromorphone HCl 1 mg 10/14/19 18:36 10/18/19 03:15 Dilaudid Inj IV PUSH 1 mg Q3H PRN Admin
--- NOTE | 2019-10-19 12:37 | PM.IMPN ---
Progress Note: A&P Assessment and Plan (1) Acute cholecystitis: Onset Date: ~10/10/19 Code(s): K81.0 - Acute cholecystitis Status: Acute Assessment and Plan: CT abdomen/pelvis on admission consistent with acute cholecystitis. General surgery consulted and appreciate input. HIDA scan also consistent with acute cholecystitis. After discussion with General surgery, decision was made for percutaneous cholecystostomy drain. Unable to be done by ultrasound and done by CT scan guidance instead. KUB done on 10/15/2019 with nonobstructing left kidney stone noted on previous CT scans. CT scan abdomen/pelvis today with cholecystostomy tube in expected position, prominent wall thickening of gallbladder and pericholecystic inflammatory change consistent with acute cholecystitis, no intra or extrahepatic biliary duct dilatation and interval development of tiny right pleural effusion, small amount of ascites, mild body wall edema and increasing bilateral perinephric stranding as well as unchanged 2 mm stone at the lower pole of the left kidney. Clinically much improved. LFTs continue to decrease with AST 219 and ALT 1471. Will need eventual gallbladder removal. Continue to follow LFTs. Continue IV Zosyn while here with anticipation of transitioning to oral Levaquin 250 mg daily when ready for discharge after discussion with Nephrology. Hopeful discharge tomorrow if kidney function continues to improve. (2) Acute kidney injury: Code(s): N17.9 - Acute kidney failure, unspecified Status: Acute Assessment and Plan: Nephrology consulted and appreciate input. Most likely result of hypotension infection. Creatinine slightly better at 6.50 today. Renal ultrasound completed on 10/15/2019 kidneys. Urine output is good. Will discontinue IV fluids. Hold nephrotoxic agents. Hopeful discharge tomorrow if creatinine continues to improve. (3) Benign essential HTN: Code(s): I10 - Essential (primary) hypertension Status: Chronic Assessment and Plan: Blood pressure reviewed on 10/19/2019 and now elevated. Was started on metoprolol succinate ER by Nephrology with dose increased today. Home valsartan on hold with elevated creatinine. IV hydralazine remains available if needed. Will continue to monitor. (4) Hypotension: Onset Date: ~10/15/19 Qualifiers: Hypotension type: unspecified hypotension type Qualified Code(s): I95.9 - Hypotension, unspecified Code(s): I95.9 - Hypotension, unspecified Status: Resolved Assessment and Plan: Probably was result of issue secondary to cholecystitis. Treatment of hypertension as noted. (5) Type 2 diabetes mellitus with diabetic polyneuropathy: Qualifiers: Diabetes mellitus truck terminal manager insulin use: with prison use Qualified Code(s): E11.42 - Type 2 diabetes mellitus with diabetic polyneuropathy; Z79.4 - residential (current) use of insulin Code(s): E11.42 - Type 2 diabetes mellitus with diabetic polyneuropathy Status: Chronic Assessment and Plan: Glucose reviewed on 10/19/2019 and remains controlled. Hemoglobin A1c 6.7. Will continue current dose of Lantus. Sliding scale insulin available as needed. Continue to hold home Lyrica. Will continue to monitor. (6) CAD (coronary artery disease): Qualifiers: Coronary Disease-Associated Artery/Lesion type: bypass graft [place] vs. transplanted heart: [place] heart Associated angina: without angina Qualified Code(s): I25.810 - Atherosclerosis of coronary artery bypass graft(s) without angina pectoris Code(s): I25.10 - Atherosclerotic heart disease of [place] coronary artery without angina pectoris Status: Chronic Assessment and Plan: Will continue to hold Brilinta and rosuvastatin for now. (7) Mixed hyperlipidemia: Code(s): E78.2 - Mixed hyperlipidemia Status: Chronic Assessment and Plan: Continue t
[2019-10-19 12:41] LABS: Glucose Point of Care 149 (65-105)
[2019-10-19 14:48] VITALS: BP 181/81; PULSE 69; RESP 18; TEMP 36.7; O2SAT 98
[2019-10-19] MEDS: hydrALAZINE HCL 20 MG/ML VIAL 10 MG IV PUSH (15:00)
[2019-10-19 17:16] LABS: Glucose Point of Care 226 (65-105)
[2019-10-19] MEDS: INSULIN ASPART (*BKC) 100 UNITS/ML SUB-Q (17:56)
[2019-10-19 20:00] VITALS: PULSE 69; RESP 18; O2SAT 98
[2019-10-19 20:30] VITALS: BP 178/99; PULSE 77; RESP 18; TEMP 36.9; O2SAT 95
[2019-10-19] MEDS: INSULIN GLARGINE (*BKC) 100 UNITS/ML 48 UNITS SUB-Q (21:42)
[2019-10-19 22:52] LABS: Glucose Point of Care 154 (65-105)
[2019-10-20 05:30] VITALS: BP 176/86; PULSE 63; RESP 18; TEMP 36.7; O2SAT 97
[2019-10-20 07:42] LABS: Albumin Level 3.6 g/dL (3.5-5.1); Alkaline Phosphatase 127 U/L (38-126); Aspartate Amino Transferase 101 U/L (17-59); Blood Urea Nitrogen 64 mg/dL (9-20); Calcium 8.7 mg/dL (8.4-10.2); Carbon Dioxide 30 mmol/L (22-30); Chloride 98 mmol/L (98-107); Estimated CRCL calculation 20 ml/min; Estimated Glomerular Filt Rate 11; Glucose 67 mg/dL (75-110); Phosphorus 5.2 mg/dL (2.5-4.5); Potassium 4.6 mmol/L (3.4-5.0); Sodium 136 mmol/L (137-145)
[2019-10-20 07:54] LABS: Alanine Aminotransferase 950 U/L (4-50)
--- NOTE | 2019-10-20 08:32 | PM.IMPN ---
Progress Note: A&P Assessment and Plan (1) Acute cholecystitis: Onset Date: ~10/10/19 Code(s): K81.0 - Acute cholecystitis Status: Acute Assessment and Plan: CT abdomen/pelvis on admission consistent with acute cholecystitis. General surgery consulted and appreciate input. HIDA scan also consistent with acute cholecystitis. After discussion with General surgery, decision was made for percutaneous cholecystostomy drain. Unable to be done by ultrasound and done by CT scan guidance instead. KUB done on 10/15/2019 with nonobstructing left kidney stone noted on previous CT scans. CT scan abdomen/pelvis repeated on 10/16/2019 with cholecystostomy tube in expected position, prominent wall thickening of gallbladder and pericholecystic inflammatory change consistent with acute cholecystitis, no intra or extrahepatic biliary duct dilatation and interval development of tiny right pleural effusion, small amount of ascites, mild body wall edema and increasing bilateral perinephric stranding as well as unchanged 2 mm stone at the lower pole of the left kidney. Improved and stable at this time. Plan for eventual removal of gallbladder. Is on IV Zosyn here but plan to transition to oral Levaquin 250 mg daily at discharge. LFTs improved with total bilirubin currently normal at 1.0 with AST 101 and ALT 950. With creatinine improving, anticipate discharge later today as long as okay with both Nephrology and General surgery. (2) Acute kidney injury: Code(s): N17.9 - Acute kidney failure, unspecified Status: Acute Assessment and Plan: Nephrology consulted and appreciate input. Most likely result of hypotension infection. Has also been on IV Zosyn. Renal ultrasound completed on 10/15/2019 kidneys. Creatinine improved to 5.50 today which is substantial decrease yesterday. Urine output remains good. Holding nephrotoxic agents. Hopeful discharge today if okay with nephrology. Anticipate following levels as outpatient. (3) Benign essential HTN: Code(s): I10 - Essential (primary) hypertension Status: Chronic Assessment and Plan: Blood pressure reviewed on 10/20/2019 and still elevated. Metoprolol succinate ER increased yesterday. Home valsartan on hold with elevated creatinine. IV hydralazine available as needed. Will monitor while here. Await any further recommendations from Nephrology. (4) Hypotension: Onset Date: ~10/15/19 Qualifiers: Hypotension type: unspecified hypotension type Qualified Code(s): I95.9 - Hypotension, unspecified Code(s): I95.9 - Hypotension, unspecified Status: Resolved Assessment and Plan: Probably was result of issue secondary to cholecystitis. Treatment of hypertension as noted. (5) Type 2 diabetes mellitus with diabetic polyneuropathy: Qualifiers: Diabetes mellitus ad terminal makeup operator insulin use: with ad terminal makeup operator use Qualified Code(s): E11.42 - Type 2 diabetes mellitus with diabetic polyneuropathy; Z79.4 - buttermaker continuous churn (current) use of insulin Code(s): E11.42 - Type 2 diabetes mellitus with diabetic polyneuropathy Status: Chronic Assessment and Plan: Glucose reviewed on 10/20/2019. Glucose slightly this morning but otherwise very well controlled. Hemoglobin A1c 6.7. Will continue current dose of Lantus. Home Jardiance on hold. Sliding scale insulin available as needed. Continue to hold home Lyrica. Will continue to monitor while here. (6) CAD (coronary artery disease): Qualifiers: Coronary Disease-Associated Artery/Lesion type: bypass graft [place] vs. transplanted heart: [place] heart Associated angina: without angina Qualified Code(s): I25.810 - Atherosclerosis of coronary artery bypass graft(s) without angina pectoris Code(s): I25.10 - Atherosclerotic heart disease of [place] coronary artery without angina pectoris Status: Chronic Assessment and Plan: Home Brilint
[2019-10-20 08:45] LABS: Glucose Point of Care 74 (65-105)
[2019-10-20 09:11] VITALS: PULSE 70
[2019-10-20] MEDS: METOPROLOL SUCCINATE EXT REL 50 MG TABCR PO (09:11)
--- NOTE | 2019-10-20 10:47 | PM.PNGS ---
Progress Note: A&P Assessment and Plan (1) Acute cholecystitis: Onset Date: ~10/10/19 Code(s): K81.0 - Acute cholecystitis Status: Acute Assessment and Plan: Resolved with cholecystostomy tube. Will go home with tube and see Dr. Ramirez in approximately 10 days. (2) Acute kidney injury: Code(s): N17.9 - Acute kidney failure, unspecified Status: Acute Assessment and Plan: Creatinine down to 5.5. To be discharged today. (3) Antiplatelet or antithrombotic long-term use: Code(s): Z79.02 - long term care pharmacist (current) use of antithrombotics/antiplatelets Status: Acute Assessment and Plan: Patient had coronary stents placed in July of 2017. Brilinta will be held. I discussed this with Dr. Gorman. We will send him home on 325 mg aspirin daily instead. (4) Type 2 diabetes mellitus with diabetic polyneuropathy: Qualifiers: Diabetes mellitus adjunct faculty for medical terminology insulin use: with adjunct faculty for medical terminology use Qualified Code(s): E11.42 - Type 2 diabetes mellitus with diabetic polyneuropathy; Z79.4 - long term care pharmacist (current) use of insulin Code(s): E11.42 - Type 2 diabetes mellitus with diabetic polyneuropathy Status: Chronic (5) residential (current) use of insulin: Code(s): Z79.4 - long term care pharmacist (current) use of insulin Status: Acute Subjective Subjective Date/Time Seen: 10/20/19 10:47 No complaints. Would like to be discharged. No questions regarding cholecystostomy tube. Review of Systems Review of Systems: All systems reviewed & are unremarkable except as noted in HPI and below (HPI) Exam Const: General: cooperative, healthy appearing, comfortable, awake and Physically active; No acute distress Nutritional Appearance: well nourished Orientation/consciousness: patient oriented x3 GI: Inspection: incision (Cholecystostomy tube draining blood-tinged bile. Small amounts.) and obesity GI Palp: Yes Soft to palpation and No Tenderness to palpation present (GI) Auscultation: normal bowel sounds Objective Data Vital Signs Vital Signs: Vital Signs - 24 hr 10/19/19 14:48 10/19/19 20:00 10/19/19 20:30 Temperature 36.7 C 36.9 C Pulse Rate 69 69 77 Respiratory Rate 18 18 18 Blood Pressure 181/81 H 178/99 H Pulse Oximetry 98 98 95 10/20/19 05:30 10/20/19 09:11 Temperature 36.7 C Pulse Rate 63 70 Respiratory Rate 18 Blood Pressure 176/86 H Pulse Oximetry 97 Intake/Output Intake/Output: Intake & Output 10/17/19 10/18/19 10/19/19 10/20/19 23:59 23:59 23:59 23:59 Intake Total 4535 3870 4155 2160 Output Total 1450 2890 1400 1215 Balance 3085 980 2755 945 Meds/Results Medications: Active Medications Generic Name Dose Route Start Last Admin Trade Name Freq PRN Reason Stop Dose Admin Acetaminophen 1,000 mg 10/14/19 15:38 Tylenol Tablet PO Q6H PRN Mild Pain (1-3) or Fever Hydrocodone Bitart/Acetaminophen 1 tab 10/14/19 15:37 10/18/19 11:23 [place] 5-325 Mg PO 1 tab Q6H PRN Administration Pain Rated 4-6 Dextrose 12.5 gm 10/13/19 23:02 Dextrose 50% Syringe IV PUSH PRN PRN Hypoglycemia Protocol Glucagon 1 mg 10/13/19 23:02 Glucagon For Inj IM PRN PRN Hypoglycemia Protocol Hydralazine HCl 10 mg 10/16/19 14:21 10/19/19 15:00 Apresoline Hcl Inj IV PUSH 10 mg Q6HR PRN Administration Blood Pressure - High Hydromorphone HCl 1 mg 10/14/19 18:36 10/18/19 03:15 Dilaudid Inj IV PUSH 1 mg Q3H PRN Administration Pain Rated 4-6 Hydromorphone HCl 1.5 mg 10/14/19 18:46 10/14/19 18:30 Dilaudid Inj IV PUSH 1.5 mg Q3H PRN Administration Pain Rated 7-10 Dextrose 1,000 mls @ 100 mls/hr 10/13/19 23:02 Dextrose 5% 1,000 Ml IVPB PRN PRN Hypoglycemia Protocol Piperacillin Sod/Tazobactam Sod 2.25 gm in 50 mls @ 100 mls/hr 10/20/19 13:00 Zosyn 2.25 Gm/D5w 50 Ml IVPB Q8HR [facility] Insulin Aspart 0 units 10/16/19 08
--- NOTE | 2019-10-20 11:06 | PM.PNNEP ---
Progress Note: A&P Assessment and Plan (1) Acute kidney injury: Code(s): N17.9 - Acute kidney failure, unspecified Status: Acute Assessment and Plan: The patient has acute kidney injury. Renal ultrasound is unremarkable. Urine electrolytes are okay. Urinalysis is unremarkable except for some blood. Urine output is good. Creatinine 1 to 3 to 5 to 6 to 6.6 to 6.5 and now 5.5. Volume status looks good. He is making urine. I think it is okay for him to go home. He should get a renal panel on Monday or Monday and see me in about 8 to 10 days. (2) Acute cholecystitis: Onset Date: ~10/10/19 Code(s): K81.0 - Acute cholecystitis Status: Acute Assessment and Plan: The patient has a cholecystostomy tube in. His liver enzymes continue to improve and his bilirubin is normal. He feels better (3) HTN (hypertension) with goal to be determined: Code(s): I10 - Essential (primary) hypertension Status: Acute Assessment and Plan: His blood pressure is high still. He is eating fine. Will stop IV fluids. On metoprolol 50 b.i.d.. Will add hydrochlorothiazide. (4) CAD (coronary artery disease): Qualifiers: Coronary Disease-Associated Artery/Lesion type: bypass graft [place] vs. transplanted heart: [place] heart Associated angina: without angina Qualified Code(s): I25.810 - Atherosclerosis of coronary artery bypass graft(s) without angina pectoris Code(s): I25.10 - Atherosclerotic heart disease of [place] coronary artery without angina pectoris Status: Chronic Assessment and Plan: He is having no chest pain. (5) Left nephrolithiasis: Onset Date: Unknown Code(s): N20.0 - Calculus of kidney Status: Acute Assessment and Plan: He has got a stable 2mm kidney stone lower pole of the left kidney. Subjective Date/time seen: 10/20/19 11:06 Interval history: Patient is feeling okay. Eager for discharge. Exam Narrative: Exam Narrative: Well developed well-nourished in no acute distress Lungs clear Heart regular without rub Abdomen bowel sounds positive soft nontender Extremities no edema Skin no rash or subcu nodules Objective Data Vital Signs Vital Signs: Vital Signs - 24 hr 10/19/19 14:48 10/19/19 20:00 10/19/19 20:30 Temperature 36.7 C 36.9 C Pulse Rate 69 69 77 Respiratory Rate 18 18 18 Blood Pressure 181/81 H 178/99 H Pulse Oximetry 98 98 95 10/20/19 05:30 10/20/19 09:11 Temperature 36.7 C Pulse Rate 63 70 Respiratory Rate 18 Blood Pressure 176/86 H Pulse Oximetry 97 Intake/Output Intake/Output: Intake & Output 10/17/19 10/18/19 10/19/19 10/20/19 23:59 23:59 23:59 23:59 Intake Total 4535 3870 4155 2160 Output Total 1450 2890 1400 1215 Balance 3085 735 2482 998 Meds/Results Medications: Active Medications Generic Name Dose Route Start Last Admin Trade Name Freq PRN Reason Stop Dose Admin Acetaminophen 1,000 mg 10/14/19 15:38 Tylenol Tablet PO Q6H PRN Mild Pain (1-3) or Fever Hydrocodone Bitart/Acetaminophen 1 tab 10/14/19 15:37 10/18/19 11:23 [place] 5-325 Mg PO 1 tab Q6H PRN Administration Pain Rated 4-6 Dextrose 12.5 gm 10/13/19 23:02 Dextrose 50% Syringe IV PUSH PRN PRN Hypoglycemia Protocol Glucagon 1 mg 10/13/19 23:02 Glucagon For Inj IM PRN PRN Hypoglycemia Protocol Hydralazine HCl 10 mg 10/16/19 14:21 10/19/19 15:00 Apresoline Hcl Inj IV PUSH 10 mg Q6HR PRN Administration Blood Pressure - High Hydromorphone HCl 1 mg 10/14/19 18:36 10/18/19 03:15 Dilaudid Inj IV PUSH 1 mg Q3H PRN Administration Pain Rated 4-6 Hydromorphone HCl 1.5 mg 10/14/19 18:46 10/14/19 18:30 Dilaudid Inj IV PUSH 1.5 mg Q3H PRN Administration Pain Rated 7-10 Dextrose 1,000 mls @ 100 mls/hr 10/13/19 23:02 Dextrose 5% 1,000 Ml IVPB PRN P
[2019-10-20] MEDS: hydroCHLOROthiazide 25 MG TABLET PO (12:01)
--- NOTE | 2019-10-20 12:24 | PM.DS ---
DS: Diagnosis Admitting Diagnosis Admitting Diagnosis: Acute cholecystitis Discharge Diagnosis (1) Acute cholecystitis: Onset Date: ~10/10/19 Code(s): K81.0 - Acute cholecystitis Status: Acute (2) Acute kidney injury: Code(s): N17.9 - Acute kidney failure, unspecified Status: Acute (3) Benign essential HTN: Code(s): I10 - Essential (primary) hypertension Status: Chronic (4) Hypotension: Onset Date: ~10/15/19 Qualifiers: Hypotension type: unspecified hypotension type Qualified Code(s): I95.9 - Hypotension, unspecified Code(s): I95.9 - Hypotension, unspecified Status: Resolved (5) Type 2 diabetes mellitus with diabetic polyneuropathy: Qualifiers: Diabetes mellitus long wall mining machine helper insulin use: with long wall mining machine helper use Qualified Code(s): E11.42 - Type 2 diabetes mellitus with diabetic polyneuropathy; Z79.4 - hospice community liaison (current) use of insulin Code(s): E11.42 - Type 2 diabetes mellitus with diabetic polyneuropathy Status: Chronic (6) CAD (coronary artery disease): Qualifiers: Associated angina: without angina Coronary Disease-Associated Artery/Lesion type: bypass graft [place] vs. transplanted heart: [place] heart Qualified Code(s): I25.810 - Atherosclerosis of coronary artery bypass graft(s) without angina pectoris Code(s): I25.10 - Atherosclerotic heart disease of [place] coronary artery without angina pectoris Status: Chronic (7) Mixed hyperlipidemia: Code(s): E78.2 - Mixed hyperlipidemia Status: Chronic DS: Summary Hospital Course Reason for hospitalization: Epigastric pain x4 days. Hospital Course: Date of Service of Discharge: October 20, 2019. History of Present Illness: Patient is a pleasant 54-year-old gentleman with known diabetes, coronary artery disease, hypertension and hyperlipidemia who presented to the emergency room with complaint of epigastric pain, nausea and vomiting x4 days. He reports symptoms are aggravated with any intake of food or fluid. No fever, chills or diarrhea. No bloody emesis. No dysuria or hematuria. No history of peptic ulcer disease or pancreatitis. On evaluation in the emergency room, findings were consistent with acute cholecystitis as seen on CT scan of the abdomen and pelvis. General surgery was consulted from the emergency room. Patient was started on IV antibiotics and admitted for further evaluation and treatment. Course in Hospital: Patient was admitted to the medical floor where he remained for the duration of his stay. As noted, General surgery was consulted. He was started on IV Zosyn which he continued throughout his stay. Initial CT abdomen/pelvis with findings consistent with acute cholecystitis with mild gallbladder wall thickening as well as edematous stranding of the pericholecystic fat. Additionally there was a 3 mm nonobstructing stone of the left kidney lower pole. HIDA scan was done on 10/14/2019 with nonfilling gallbladder consistent with cholecystitis. Patient was seen by Dr. Ramirez for General surgery. He did discuss treatment options with the patient. Patient decided to proceed with percutaneous placement of cholecystostomy tube. Interventional radiology then attempted ultrasound-guided placement which was unsuccessful with patient then having CT-guided placement completed on 10/14/2019. Patient did have some pain as result of the placement of the cholecystostomy tube but this was controlled with pain medication. By the following day, patient's LFTs substantially increased. He was having problems with not only nausea and vomiting but also developed hypotension by 10/15/2019. Patient received several fluid boluses with improvement of blood pressure. Blood in urine cultures were obtained due to the hypotension all of which were negative at discharge. Was also experiencing low back pain on 10/15/2019 with the hypotension, as a result abdominal x
== END 2019-10-20 12:05 | disposition home or self-care (01) | DRG 445 ==
LOC: ANHED 21:07 → ANH3MEDSUR 21:27
PROVIDERS: Internal Medicine Nephrology; Surgery; Admitting Provider Family Medicine; Emergency Provider Emergency Medicine; PCP Family Medicine; Visit Provider Hospitalist
DX: K81.0 Acute cholecystitis (principal); K56.7 Ileus, unspecified; N17.9 Acute kidney failure, unspecified; E78.5 Hyperlipidemia, unspecified; E11.42 Type 2 diabetes mellitus with diabetic polyneuropathy; I10 Essential (primary) hypertension; E11.319 Type 2 diabetes mellitus with unspecified diabetic retinopathy without macular edema; I25.10 Atherosclerotic heart disease of native coronary artery without angina pectoris; N20.0 Calculus of kidney; E78.2 Mixed hyperlipidemia
CPT/HCPCS: 36415; 47490; 74018; 74176; 75989; 76775; 78226; 80048; 80053; 80069; 80076; 81001; 82550; 82570; 83036; 83690; 84156; 84300; 85014; 85018; 85025; 85027; 85610; 85730; 85999; 87040; 87070; 87075; 87086; 87102; 87205; 87206; 96361; 96365; 96367; 96375; 99285; A9270; A9537; C1769; J0131; J0360; J1170; J1815; J2270; J2405; J2543; J2765; J7030; J7040; J7120

== ENCOUNTER 2019-11-07 08:57 | Outpatient (CLI) | payer OTHER, SELFPAY ==
--- NOTE | ~2019-11-07 | XR_ITS ---
EXAMINATION: XR catheter cholangiogram DATE: 11/07/2019 09:40 INDICATION: Acute cholecystitis. TECHNIQUE: I injected the percutaneous cholecystotomy tube with Omnipaque 240 contrast during fluoros copy. Fluoroscopy images were obtained. Fluoroscopy exposure time was 0.2 minutes. COMPARISON: CT abdomen and pelvis 10/16/2019 FINDINGS: The catheter is in expected position in the gallbladder. The cystic duct is occluded. IMPRESSION: 1. Persistently occluded cystic duct. Reviewed, dictated and finalized at location A.
--- NOTE | 2019-11-07 10:06 | ECG_ITS ---
Measurements Intervals [place] Rate: 64 P: 59 ND: 163 QRS: 14 QRSD: 143 T: 232 QT: 413 QTc: 426 Interpretive Statements SINUS RHYTHM RIGHT BUNDLE BRANCH BLOCK BORDERLINE ST-T WAVE ABNORMALITY- ANTEROLATERAL LEADS ABNORMAL ECG Electronically Signed On 11-07-2019 10:20:34 CDT by Bob Perez D.O.
== END 2019-11-07 08:58 | disposition home or self-care (01) ==
PROVIDERS: PCP Family Medicine; Visit Provider Surgery
DX: K81.0 Acute cholecystitis (principal); I45.10 Unspecified right bundle-branch block
CPT/HCPCS: 47531; 93005; Q9966

== ENCOUNTER 2019-11-11 01:10 | Day surgery (SDC) | payer OTHER, SELFPAY ==
[2019-11-07 09:24] VITALS: BMI 28.8
[2019-11-11] VITALS (7 sets, daily range): BP systolic 121–179; BP diastolic 85–94; PULSE 63–78; RESP 11–20; TEMP 36–36.3; O2SAT 98–100
--- NOTE | ~2019-11-11 | XR_ITS ---
EXAMINATION: XR cholangiogram surg 1st inj EXAM DATE: 11/11/2019 12:57 INDICATION: Cholecystectomy. TECHNIQUE: Multiples Cine fluoroscopic images were obtained during injection of the cystic duct duri ng laparoscopic cholecystectomy. Procedure performed by Dr. Slava Ramirez MD on 11/11/2019 12:5 7. The DAP for this procedure was 1.2 mGym2. FINDINGS: The cystic duct has been injected. There are no intraluminal filling defects within or st rictures of the common bile duct or opacified hepatic ducts. Forward flow of contrast confirmed into the duodenum. IMPRESSION: Unremarkable biliary system. Reviewed, dictated and finalized at location B.
[2019-11-11] MEDS: LACTATED RINGERS 1,000 ML 30 ML IV CONT ×2 (10:30→13:59)
[2019-11-11 10:42] LABS: Glucose Point of Care 133 (65-105)
--- NOTE | 2019-11-11 10:47 | P.PNAN_ITS ---
Anes - Eval Pre Procedure Procedure: Operation Date: 11/11/19 10:00 Proposed Procedures p Laparoscopic Cholecystectomy, Possible Intraoperative Cholangiogram, Possible Open - Slava Ramirez MD Date/Time: 11/11/19 10:47 Pre Op Diagnosis: Acute Cholecystitis Patient Data Age: 54 Gender: M Height: 1.91 m Weight: 104.78 kg Allergies Allergy/AdvReac Type Severity Reaction Status Date / Time amlodipine AdvReac Dizziness Verified 11/07/19 10:29 Home Medications Medication Instructions Recorded Confirmed Type empagliflozin 25 mg tablet 25 mg PO DAILY #90 tablet 06/07/19 11/07/19 Rx insulin degludec 200 unit/mL (3 48 unit SUB-Q DAILY ml 06/07/19 11/07/19 History mL) subcutaneous pen rosuvastatin 20 mg tablet 20 mg PO DAILY 06/07/19 11/07/19 History ticagrelor 90 mg tablet 90 mg PO DAILY 06/07/19 11/07/19 History pen needle, diabetic 32 gauge x #200 each 07/30/19 10/13/19 Rx 5/32 dulaglutide 0.75 mg/0.5 mL 0.75 mg SUB-Q WEEKLY #1 ml 09/09/19 11/07/19 Rx subcutaneous pen injector aspirin 325 mg PO DAILY #30 tablet 10/20/19 11/07/19 Rx metoprolol succinate 50 mg PO QAM 30 Days #30 tablet 10/20/19 11/07/19 Rx flash glucose sensor See Rx Instructions .ROUTE 10/21/19 11/07/19 Rx .COMPLEX #2 kit ondansetron 4 mg disintegrating 4 mg PO Q6H PRN #10 tablet 10/21/19 11/07/19 Rx tablet hydrocodone 5 mg-acetaminophen 325 1 tablet PO Q6H PRN #14 tablet 10/29/19 11/07/19 Rx mg tablet Lyrica 100 mg capsule 100 mg PO BID #180 cap NS 11/05/19 11/07/19 Rx metoclopramide HCl 10 mg tablet 10 mg PO Q6H PRN #21 tablet 11/05/19 11/07/19 Rx Laboratory Tests 11/11/19 11/11/19 10:23 10:39 POC Capillary Glucose 133 mg/dl H mg/dl (65-105) Amylase Pending Patient hx anesthesia problems: none Family hx anesthesia problems: none Prior Surgeries: CABG [facility] Past Medical History Medical History Atherosclerotic heart disease of [place] coronary artery without angina pectoris Diabetic macular edema of both eyes Hypertensive heart disease without heart failure group home (current) use of insulin Mixed hyperlipidemia Proliferative diabetic retinopathy Type 2 diabetes mellitus with diabetic polyneuropathy Type 2 diabetes mellitus with hyperglycemia (Unknown) Social History Social History Social History: The patient lives at home with his . He works in the [employer] business. Smoking status: Never smoker Alcohol intake: former Substance use: never Substance use type: does not use Gender identity (if verbalized by the patient): Male Spiritual care concerns: No Agree to blood products: Yes Exam Day of Procedure 11/11/19 10:47
[2019-11-11 10:56] LABS: Amylase 52 U/L (30-110)
--- NOTE | 2019-11-11 11:16 | WPDHPUPDATE1 ---
History and Physical Update Update Date/Time: 11/11/19 11:16 History and Physical has been reviewed, including an updated exam of the patient. There are changes in the patient's condition. Patient had a cholangiogram through his cholecystostomy tube last week that showed no connection to the common bile duct system. Renal function labs have improved with his last labs. Risks, benefits, and alternatives of a laparoscopic cholecystectomy possible intraoperative cholangiogram possible open cholecystectomy have been discussed and questions answered. Patient agrees to proceed with procedure.
--- NOTE | 2019-11-11 11:21 | P.PNAN_ITS ---
Anes - Eval Final PreProcedure Day of Procedure 11/11/19 11:21 Patient weight: obese Heart: regular rate and rhythm Lungs: clear to auscultation Airway: Mallampati scale class II Neurological: alert and oriented Last oral intake: >/= 8 hours ASA classification: III Emergent: no Anesthetic plan: proceed Anesthesia type and monitoring: general ETT and standard monitoring Informed Consent: The patient's anesthetic plan and its attendant risks and be nefits were discussed with the patient/family/POA. Questions were solicited and answers provided to the satisfaction of the patient/family/POA.
[2019-11-11] MEDS: ceFAZolin 2 GM/D5W 50 ML 2 GM/50 ML BAG IVPB (11:23)
[2019-11-11] MEDS: BUPIVACAINE/EPINEPHRINE 0.5% 30 ML VIAL 20 ML INFILTRATE (12:04)
--- NOTE | 2019-11-11 14:23 | PM.PROC ---
Procedure Note - Detailed Date of procedure: 11/11/19 Pre-op diagnosis: Acute Cholecystitis Post-op diagnosis: other (Recent acute cholecystitis, with cholelithiasis status post cholecystostomy tube) Procedure performed: Laparoscopic cholecystectomy with intraoperative cholangiogram. Description of procedure: Procedure Details: Patient was seen preoperatively in the holding area and risks, benefits and alternatives confirmed. Patient was taken to the operating room and general anesthesia was induced. A time out was then preformed with the surgery team confirming patient and site of surgery. The abdomen was prepped and draped in the usual sterile fashion. Incision was made just below the umbilicus. Two stay sutures of O- Vicryl were used to elevate the mid-line fascia beneath the umbilicus and a small incision was made under direct vision. The peritoneum was entered. The 12 mm Shirley cannula was introduced under direct vision. First under low flow and then under high flow the abdomen was insufflated with carbon dioxide never exceeding a pressure of 14. Three 5 mm trocars were then introduced under direct vision. The following trocars were introduced under direct vision: a 5 mm in the epigastrium and two 5 mm trocars along the right costal margin. There were some filmy adhesions between the inferior side of the gallbladder and the omentum but these were taken down easily with blunt sharp dissection. The gall bladder was grasped and the cystic duct and artery were dissected free and clipped with an 5 mm endo-clip aircraft powerplant repairer. The 1st structure that I thought was the cystic duct was actually cystic artery this was subsequently clipped on each side and found the cystic duct just behind it. This was carefully dissected out and then 1 clip placed on the gallbladder side such that we could do a standard cystic duct cholangiogram. A small hole was made in the cystic duct with endoshears and a cholagio-cath introduced. A cholangiogram was obtained revealing free flow into the cystic duct, common bile duct, common hepatic, right and left hepatic ducts with free flow into the duodenum with no filling defects in the intra nor extrahepatic biliary tree and no dilation. The flow into the duodenum was little bit difficult to see but it was seen well on the 3rd run of our cholangiogram. The catheter was removed and the cystic duct was clipped with a 5 mm endoclip-aircraft powerplant repairer. The cystic duct was then transected. The posterior branch of the cystic artery was also transected at this point. We then dissected up the back of the gallbladder. When we had the gallbladder almost off its bed in the liver we removed the cholecystostomy tube by transecting on the outside of the body and pulling the internal portion of the tube up in out. There did not seem to be much leakage from the edge of the liver or the gallbladder where this tube entered. The gall bladder was removed using electrocautery and then removed in an endobag via the umbilical incision. The trocars were removed visualizing hemostasis and the remaining gas evacuated. The large trocar site at the umbilicus was closed with an 0 vicryl figure of 8 suture. The 2 stay sutures mentioned above on either side of the fascia were also tied together to help approximate this midline fascia. Further local anesthetic was placed into each incision for postop pain control. The skin incisions were closed with a subcuticular of 4-0 Monocryl. Surgical glue then was applied to all the incisions. Patient tolerated the procedure well was taken to the recovery room in good condition. Anesthesia: GETA Surgeon: Slava Ramirez MD Break Up Worker: CESAR Rodriguez, OR 1st assist Estimated blood loss (mL): 40 Drains: No Packing: No Pathology: yes (The gallbladder) Complications: No immediate complications Condition: stable Disposition: PACU Findings: Someone contracted chronically inflamed gallbladder with some sludge in the cystic duct.
== END 2019-11-11 15:35 | disposition home or self-care (01) ==
PROVIDERS: PCP Family Medicine; Visit Provider Surgery
PROC: 0FT44ZZ Resection of Gallbladder, Percutaneous Endoscopic Approach (ICD-10-PCS; CPT 47562; principal; 2019-11-11 10:00)
DX: K80.12 Calculus of gallbladder with acute and chronic cholecystitis without obstruction (principal); I25.10 Atherosclerotic heart disease of native coronary artery without angina pectoris; E78.2 Mixed hyperlipidemia; I11.9 Hypertensive heart disease without heart failure; E11.3513 Type 2 diabetes mellitus with proliferative diabetic retinopathy with macular edema, bilateral; E11.42 Type 2 diabetes mellitus with diabetic polyneuropathy; Z95.1 Presence of aortocoronary bypass graft; Z79.82 Long term (current) use of aspirin; Z79.4 Long term (current) use of insulin
CPT/HCPCS: 47563; 36415; 74300; 82150; 88304; A9270; J0330; J0690; J1100; J1170; J2250; J2405; J2704; J2710; J3010; J7120; Q9966

== ENCOUNTER 2021-12-17 10:46 | Outpatient (CLI) | payer OTHER, SELFPAY ==
--- NOTE | ~2021-12-17 | XR_ITS ---
EXAMINATION: XR chest 2V 12/17/2021 11:11 INDICATION: Dyspnea. Dry cough. Shortness of breath. PROCEDURE: 2 view chest COMPARISON: 10/02/2015 FINDINGS: The lungs are clear. Status post median sternotomy for CABG. There are cholecystectomy clip s. The cardiomediastinal silhouette is within normal limits. There are no pleural effusions. There is no pneumothorax suspected. IMPRESSION: 1: NO ACUTE CARDIOPULMONARY DISEASE. Reviewed, dictated and finalized at location B.
[2021-12-17 11:41] LABS: Basophils Percent Auto 0.5 % (0.2-1.2); Eosinophils Absolute Auto 0.3 K/mm3 (0-0.3); Eosinophils Percent Auto 4.8 % (0-4.4); Hematocrit 47.1 % (42.0-52.0); Hemoglobin 13.9 g/dL (14.0-18.0); Immature Granulocyte Absolute 0.02 K/mm3 (0.00-0.031); Immature Granulocyte Percent A 0.3 % (0-0.5); Immature Platelet Fraction Pct 12.5 % (0.9-11.2); Lymphocytes Absolute Auto 1.29 K/mm3 (0.9-3.2); Lymphocytes Percent Auto 21.4 % (18.3-44.2); Mean Corpuscular HGB Conc 29.5 g/dl (32-36); Mean Corpuscular Hemoglobin 29.1 pg (26-34); Mean Corpuscular Volume 98.7 fl (80-100); Mean Platelet Volume 12.9 fl (7.4-10.4); Monocytes Absolute Auto 0.6 K/mm3 (0.1-0.6); Monocytes Percent Auto 10.4 % (2.6-8.5); Neutrophils Absolute Auto 3.8 K/mm3 (1.3-6.7); Neutrophils Percent Auto 62.6 % (45.5-73.1); Platelet Count Result 162 k/mm3 (150-375); Red Blood Count 4.77 M/mm3 (4.6-6.20)
[2021-12-17 11:52] LABS: Alanine Aminotransferase 25 U/L (6-50); Albumin Level 4.8 g/dL (3.5-5.1); Alkaline Phosphatase 70 U/L (38-126); Anion Gap 8 mmol/L (8-16); Aspartate Amino Transferase 30 U/L (17-59); Bilirubin,Total 0.5 mg/dL (0.2-1.3); Blood Urea Nitrogen 36 mg/dL (9-20); Calcium 9.6 mg/dL (8.4-10.2); Carbon Dioxide 25 mmol/L (22-30); Chloride 107 mmol/L (98-107); Estimated Glomerular Filt Rate 57; Glucose 126 mg/dL (65-110); Potassium 5.1 mmol/L (3.4-5.0); Sodium 140 mmol/L (137-145)
[2021-12-17 11:56] LABS: Hemoglobin A1C 6.9 % (<5.7)
[2021-12-17 11:59] LABS: NT Pro B Type Natriuretic Pept 554 pg/mL (5-100)
[2021-12-17 12:03] LABS: Platelet Estimate Adequate (Adequate)
[2021-12-17 12:04] LABS: Hypochromasia 1+ (NORMAL)
[2021-12-17 12:59] LABS: Folic Acid > 20.0 ng/mL (2.76->20); Vitamin B12 > 1000.0 pg/mL (239-931)
== END 2021-12-17 10:47 | disposition home or self-care (01) ==
PROVIDERS: PCP Family Medicine; Visit Provider Physician Assistant
DX: R06.00 Dyspnea, unspecified (principal); I50.9 Heart failure, unspecified; I11.9 Hypertensive heart disease without heart failure; E11.65 Type 2 diabetes mellitus with hyperglycemia; E78.2 Mixed hyperlipidemia; N17.9 Acute kidney failure, unspecified; R53.83 Other fatigue
CPT/HCPCS: 36415; 71046; 80053; 82607; 82746; 83036; 83880; 84443; 85025; 85055

== ENCOUNTER 2022-06-07 09:22 | Outpatient (CLI) | payer OTHER, SELFPAY ==
--- NOTE | ~2022-06-07 | XR_ITS ---
EXAMINATION: XR hip BI 2V w AP pelvis DATE: 06/07/2022 09:41 INDICATION: Right hip pain. TECHNIQUE: An anteroposterior view of the pelvis and 2 views of each hip were obtained. COMPARISON: CT abdomen and pelvis 10/16/2019 FINDINGS: Bone alignment is normal. No fracture. There is severe lumbar spondylosis. There is mild os teoarthritis of the hips. There are surgical clips in right thigh. IMPRESSION: 1. Mild osteoarthritis of the hips. Reviewed, dictated and finalized at location A. MILLING MACHINE SET UP OPERATOR
--- NOTE | ~2022-06-07 | XR_ITS ---
EXAM: XR lumbar spine 2-3V DATE: 06/07/2022 09:41 HISTORY: M25.551 - Pain in right hip, POSTERIOR RIGHT SIDE BURNING . COMPARISON: CT abdomen pelvis 10/16/2019. FINDINGS: Cholecystectomy clips. Mild lumbar scoliosis. Loss of the normal lordosis. 5 nonrib-bearin g lumbar-type vertebral bodies. Pedicles intact. Normal vertebral body alignment. Vertebral body heig hts preserved. Multilevel disc space narrowing and marginal osteophytosis, severe at L4-5. Multilevel lower lumbar facet sclerosis and hypertrophy. L5 laminectomy. No fracture or dislocation. IMPRESSION: Multilevel degenerative disc disease, severe at L4-5. Moderate lower lumbar facet arthrop athy. Reviewed, dictated and finalized at location K. TION TECHNICIAN AIRCRAFT IMPRESSION: Multilevel degenerative disc disease, severe at L4-5. Moderate lowe r lumbar facet arthropathy.
== END 2022-06-07 09:23 | disposition home or self-care (01) ==
PROVIDERS: PCP Family Medicine; Visit Provider Physician Assistant
DX: M16.0 Bilateral primary osteoarthritis of hip (principal); M51.36 Other intervertebral disc degeneration, lumbar region
CPT/HCPCS: 72100; 73521

== ENCOUNTER → 2023-01-17 09:07 | Outpatient (CLI) | payer BC, SELFPAY ==
--- NOTE | ~2023-01-17 | MR_ITS ---
MRI of the lumbar spine Clinical History: Spinal stenosis Technique: Axial T2-weighted images, and sagittal T1-weighted, T2-weighted, and T2 fat-sat images wer e acquired. Findings: There is no acute fracture or subluxation of the lumbar spine. Vertebral bodies maintain no rmal height and alignment. Probable intraosseous hemangioma of the L1 vertebral body. At L1-L2, there is no significant disc bulge or herniation. There is mild to moderate facet arthropat hy. No spinal canal stenosis or neural foraminal narrowing. At L2-L3, there is minimal disc bulge with moderate facet arthropathy. No central canal stenosis or n eural foraminal narrowing. At L3-L4, mild disc bulge and moderate facet arthropathy are present. No devonte central canal stenosis or neural foraminal narrowing. At L4-L5, there is advanced degenerative disc narrowing. Disc bulge is present, most prominent at the right paracentral to right foraminal region, with advanced facet arthropathy. There is right lateral recess stenosis, and severe right neural foraminal narrowing. There is moderate left neural foramina l narrowing. At L5-S1, there is broad-based central disc protrusion with advanced facet arthropathy. There is a vincent perimposed disc extrusion extending inferiorly in the left paracentral region behind the S1 vertebral body, resulting in probable severe thecal sac compression is region. There is severe bilateral neura l foraminal narrowing at L5-S1. Paravertebral soft tissues are unremarkable. Impression: Large disc extrusion extending inferiorly from the L5-S1 level behind the S1 vertebral body, predomin antly in the left paracentral region, resulting in severe thecal sac compression at the S1 region. Additional severe bilateral neural foraminal narrowing at L5-S1. Additional moderate to advanced degenerative changes at L4-L5, as detailed above. Reviewed, dictated and finalized at location M. Impression: Large disc extrusion extending inferiorly from the L5-S1 level behind the S1 ve rtebral body, predominantly in the left paracentral region, resulting in severe thecal sac compression at the S1 region. Additional severe bilateral neural foraminal narrowing at L5-S1. Additional moderate to advanced degenerative changes at L4-L5, as detailed abov e.
== END ==
PROVIDERS: PCP Family Medicine
DX: M48.061 Spinal stenosis, lumbar region without neurogenic claudication (principal); M51.27 Other intervertebral disc displacement, lumbosacral region; M51.36 Other intervertebral disc degeneration, lumbar region
CPT/HCPCS: 72148

== ENCOUNTER 2024-08-29 12:30 | Outpatient (RCR) | payer BC, SELFPAY ==
--- NOTE | 2024-07-19 17:45 | PTOPEVAL1 ---
Assessment and note entered by Jesika Willett, PT Evaluation Information Assessment Status Evaluation Diagnosis M54.50, R29.818, M25.551, M25.552, G89.29 ICD-10 Condition Codes (PT) Radiculopathy, lumbar region M54.16,Radiculopathy, sacral and sacrococcygeal region M54.18,Pain in right hip M25.551,Pain in left hip M25.552, Difficulty Walking R26.2,Abnormalities of gait and mobility R26.9,Weakness R53.1 Onset at least 3-4 years Subjective Information Pt c/o burning sensation to buttocks area R > L, Denies any fall or traumatic incident. Reports a history of severe back pain and sciatica and underwent L4-L5 herniated disc surgery (mid 2022) which resolved the problem then. However he is noticing more of this burning sensation occurring more frequently with increased intensity the last few months; tried Chiropractic treatment which he feels was making it worse. Increased stiffness to back and hips in the morning has also been an ongoing problem, as well as muscle tightness in both legs; he also feels that the burning pain in the buttocks has random occurrence, walking any distance causes it but then it stops and goes away the moment he stop walking, doesn't necessarily need to sit down, although, sitting down or leaning on a shopping cart makes the back feel better and makes him feel secure since he also feels like his legs get weak or heavy whenever this happens. Reported Pain Level Pain Score 0: Self Report Additional Pain Score Comments patient reports sitting down right now with legs in a figure of 4 position does not bother him. Assessment PT Clinical Summary Pt presents to therapy for evaluation of bilateral hips and buttocks pain described as burning and is worse to R > L. Demos decreased flexibility with palpable glute area spasms and BLE soft tissue shortening, decreased strength, postural deficits, significantly decreased standing and walking tolerance and gait impairments impacting performance of IADLs and indep functional mobility . Pt will benefit from skilled PT intervention for pain management, safety education, postural awareness and body mechanics training, strengthening, flexibility and mobility exercises, improving stability and improving QOL. Plan of Care Interventions Electrical Stimulation,Gait Training,Hot Pack/Cold Pack,Manual Therapy,Mechanical Traction,Neuro Re- education,Patient/Caregiver Education,Therapeutic Activities,Therapeutic Exercise,Ultrasound,Other Other Interventions IASTM, Taping, Dry Needling PT Services Indicated Yes Treatment Frequency and 2x/wk x 20 visits Duration These treatments will address the objective and functional deficits as defined above. The patient will be advanced safely and appropriately in order for the patient to progress towards his/her prior level of function. Additional exercises will be introduced and as well as a comprehensive home exercise program upon discharge, if needed, ?to ensure carryover of functional gains achieved in the clinic. This treatment plan has been reviewed and agreement upon by the patient.
--- NOTE | 2024-07-19 17:46 | OPREHPOC ---
Outpatient Therapy Plan of Care This is a Multidisciplinary Plan of Care that may contain components documented by all disciplines (PT, OT, and ST.) PT Problem 1 PT Problem #1 Knowledge Deficit PT Goal 1 Goal / Goal Update Pt will demo understanding of diagnosis and prognosis. Pt will perform HEPs to improve lumbar stabilization, BLE strengthening and flexibility indep. Target Visit 16 PT Problem 2 PT Problem #2 Pain PT Goal 1 Goal / Goal Update Pt will report 2-3/10 pain at worst when ambulating or standing for 15 min or more. Pt will report complete resolution of pain and burning sensation with ambulation and standing tasks. Target Visit 20 PT Problem 3 PT Problem #3 Impaired Flexibility PT Goal 1 Goal / Goal Update Pt will demo < 30 deg of 90-90 hamstrings length bilaterally without increased discomfort. Pt will perform prone quad stretch >90deg without pain or discomfort bilaterally. Target Visit 16 PT Problem 4 PT Problem #4 Impaired Strength PT Goal 1 Goal / Goal Update Pt will perform Single Leg Standing for 10 seconds or more each LE without pain/discomfort indicating improved strength and stability. Target Visit 20 PT Problem 5 PT Problem #5 Impaired Functional Mobility PT Goal 1 Goal / Goal Update Pt will demo a score of 10% or less on the Oswestry Low Back Pain Disability Index indicating minimal disability. Pt will demo a score of 61% or more for Lower Extremity Functional Scale (LEFS) indicating Normal or minimal functional limitation. Target Visit 20
--- NOTE | 2024-07-19 18:07 | PTOPEVAL1 ---
Assessment and note entered by Jesika Willett, PT Evaluation Information Assessment Status Evaluation Diagnosis M54.50, R29.818, M25.551, M25.552, G89.29 ICD-10 Condition Codes (PT) Radiculopathy, lumbar region M54.16,Radiculopathy, sacral and sacrococcygeal region M54.18,Pain in right hip M25.551,Pain in left hip M25.552, Difficulty Walking R26.2,Abnormalities of gait and mobility R26.9,Weakness R53.1 Onset at least 3-4 years Subjective Information Pt c/o burning sensation to buttocks area R > L, Denies any fall or traumatic incident. Reports a history of severe back pain and sciatica and underwent L4-L5 herniated disc surgery (mid 2022) which resolved the problem then. However he is noticing more of this burning sensation occurring more frequently with increased intensity the last few months; tried Chiropractic treatment which he feels was making it worse. Increased stiffness to back and hips in the morning has also been an ongoing problem, as well as muscle tightness in both legs; he also feels that the burning pain in the buttocks has random occurrence, walking any distance causes it but then it stops and goes away the moment he stop walking, doesn't necessarily need to sit down, although, sitting down or leaning on a shopping cart makes the back feel better and makes him feel secure since he also feels like his legs get weak or heavy whenever this happens. Reported Pain Level Pain Score 0: Self Report Additional Pain Score Comments patient reports sitting down right now with legs in a figure of 4 position does not bother him. Assessment PT Clinical Summary Pt presents to therapy for evaluation of bilateral hips and buttocks pain described as burning and is worse to R > L. Hip Special tests (POOJA test, Sacral Thrust test and prone knee bending test) indicated possible SI joint irritation or dysfunction. Pt. Demos decreased flexibility with palpable glute area spasms and BLE soft tissue shortening, decreased strength, postural deficits, significantly decreased standing and walking tolerance and gait impairments impacting performance of IADLs and indep functional mobility. Pt will benefit from skilled PT intervention for pain management, safety education, postural awareness and body mechanics training, strengthening, flexibility and mobility exercises, improving stability and improving QOL. Plan of Care Interventions Electrical Stimulation,Gait Training,Hot Pack/Cold Pack,Manual Therapy,Mechanical Traction,Neuro Re- education,Patient/Caregiver Education,Therapeutic Activities,Therapeutic Exercise,Ultrasound,Other Other Interventions IASTM, Taping, Dry Needling PT Services Indicated Yes Treatment Frequency and 2x/wk x 20 visits Duration These treatments will address the objective and functional deficits as defined above. The patient will be advanced safely and appropriately in order for the patient to progress towards his/her prior level of function. Additional exercises will be introduced and as well as a comprehensive home exercise program upon discharge, if needed, ?to ensure carryover of functional gains achieved in the clinic. This treatment plan has been reviewed and agreement upon by the patient.
--- NOTE | 2024-07-25 09:55 | PCPTNOTE ---
Pt called to cancel his appointment due to illness.
--- NOTE | 2024-07-29 09:09 | PCPTNOTE ---
No call no show, reason unknown. AKRosalina
--- NOTE | 2024-08-27 12:57 | PCPTNOTE ---
Pt ns appt today, had days mixed up.
--- NOTE | 2024-10-03 07:44 | PTOPDC ---
Assessment and note entered by Zachary Camarillo, PT Evaluation Information Assessment Status Discharge - Pt Not Present Diagnosis M54.50, R29.818, M25.551, M25.552, G89.29 ICD-10 Condition Codes (PT) Radiculopathy, lumbar region M54.16,Radiculopathy, sacral and sacrococcygeal region M54.18,Pain in right hip M25.551,Pain in left hip M25.552, Difficulty Walking R26.2,Abnormalities of gait and mobility R26.9,Weakness R53.1 Onset at least 3-4 years Subjective Information Patient has No Show or no called on 4 separate occasions. Has no been present for therapy since July 2024. Assessment PT Clinical Summary Patient to be discharged a this time from skilled therapy secondary to lack of presence and communication with clinic. Please refer to last treatment note for discharge status. Plan of Care PT Services Indicated Yes
== END 2024-10-03 08:26 | disposition home or self-care (01) ==
LOC: ANHPT 12:30
PROVIDERS: PCP Family Medicine; Visit Provider Physician Assistant Medical
DX: M54.50 Low back pain, unspecified (principal); M25.551 Pain in right hip; M25.552 Pain in left hip; R29.818 Other symptoms and signs involving the nervous system; G89.29 Other chronic pain
CPT/HCPCS: 97012; 97110; 97140; 97161

== ENCOUNTER 2024-10-21 11:27 | Outpatient (CLI) | payer BC, SELFPAY ==
--- NOTE | ~2024-10-21 | XR_ITS ---
EXAMINATION: XR lumbar spine 2-3V DATE: 10/21/2024 11:50 INDICATION: Pain in right hip. TECHNIQUE: 3 views of lumbar spine were obtained. COMPARISON: Lumbar spine radiographs 06/07/2022, MRI 01/17/2023 FINDINGS: There is 7 degrees dextrocurvature of lumbar spine. There is mild chronic anterior wedging of T12 and L1 vertebral bodies. There are Schmorl's nodes at most levels. There is mildly decreased d isc height at T11-T12, T12-L1, and L3-L4 and severely decreased disc height at L4-L5 and L5-S1. There is multilevel severe facet joint osteoarthritis. IMPRESSION: 1. Severe lumbar spondylosis. Reviewed, dictated and finalized at location A.
--- NOTE | ~2024-10-21 | XR_ITS ---
EXAMINATION: XR hip BI 2V w AP pelvis DATE: 10/21/2024 11:50 INDICATION: Pain in right hip. TECHNIQUE: An anteroposterior view of the pelvis and 2 views of each hip were obtained. COMPARISON: Radiographs 06/07/2022 FINDINGS: Alignment is normal. No fracture. There is severe lumbar spondylosis. There is mild osteoar thritis of the hips. There are surgical clips in right thigh. IMPRESSION: 1. Mild osteoarthritis of the hips. Reviewed, dictated and finalized at location A.
--- OUTSIDE RECORDS SUMMARY | 2024-10-21 13:33 | XMS_ITS | Continuity of Care Document ---
Author Organization [facility] Address [address] [facility] [address] [facility] [address] [place] [address] Phone Care Team Providers Care Menhaden Vessel Pilot Name Role Phone Luca Browne Unavailable Unavailable Procedures Procedure Date Office/outpatient Visit, [facility] Advance Directives Directive Yes / No Effective Date File Name No Information Encounters Encounter Description Practice Location Reason(s) For Visit Diagnoses Date Provider Providers Copied on Encounter Office/outpat ient Visit, [facility], [address], [place], [place], [id number], [place] tel:[phone] [facility] No Information 9-200 [address] Hollie Segovia. [address] [facility] [employer] [facility] [address], [address], [place]. tel:[phone] Family History Family Member Type Diagnosis Age At Onset No Information Payers Payer name Insurance type Covered green party ID Authoriza tion(s) Medicaid [facility] [id number] Social History Type Description Quantity Date Captured Comments Sex Male Smoking Status No Information Chief Complaint And Reason For Visit No Information Reason For Referral Reason For Referral No Information History Of Present Illness Encounter Date Complaint History Of Prese nt Illness No Information Functional Status Date Functional Assessmen t No Information Instructions Date Instruction Additional Infor mation No Information Assessments Type Assessment Date No Information Patient Care Teams Name Effective Dates (start - stop) Status Members No Information
--- OUTSIDE RECORDS SUMMARY | 2024-10-21 13:33 | XMS_ITS | Clinical Summary ---
Author Organization [facility] Address [address] [place] [address] Phone Care Team Providers Care Hospitality Specialist Name Role Phone DANIEL FRANCIS D.O. [phone] Reason for Visit and Chief Complaint NEW PATIENT VISIT Plan of Treatment No Plan of Treatment Recorded Assessments Includes: Assessments from this encounter No Assessments Recorded Medical Equipment - Implanted Devices Includes: Current Devices No Medical Equipment Recorded Medications Administered Includes: Administered Medications from this encounter No Administered Medications Recorded Results Includes: Results discussed during this encounter No Results Recorded For Specified Dates History of Present Illness Includes: History of Present Illness from this encounter No History of Present Illness Recorded Social History No Social History Recorded - Smoking Status Unknown Medical History Includes: Medical History addressed during this encounter No Medical History Recorded Family History Includes: Family History addressed during this encounter No Family History Recorded Review of Systems Includes: Review of Systems from this encounter No Review of Systems Recorded Mental Status Includes: Mental Status from this encounter No Mental Status Recorded Functional Status Includes: Functional Status from this encounter No Functional Status Recorded Physical Exam Includes: Physical Exam from this encounter No Physical Exam Recorded Clinical Notes Includes: Clinical Notes from this encounter No Clinical Notes Recorded
--- OUTSIDE RECORDS SUMMARY | 2024-10-21 13:33 | XMS_ITS | Clinical Summary ---
Author Organization [facility] Address [address] [place] [address] Phone Care Team Providers Care Clinical Research Spec Name Role Phone Migel Mayorga MD Primary Care Provider [phone] Allergies Active Allergy Reactions Criticality Noted Date Comments Amlodipine Swelling 10/30/2019 Losartan Dizziness 10/30/2019 Medications Medication Sig Dispensed Refills Start Date End Date Status aspirin EC 81 MG EC tablet TAKE 1 TABLET BY MOUTH EVERY DAY 02/05/2019 Active insulin degludec (TRESIBA FLEX TOUCH) 200 UNIT/ML injection Inject 30 Units under the skin daily 08/08/2018 Active pregabalin (Lyrica) 100 MG capsule 100 mg 11/21/2016 Active metoprolol succinate XL (TOPROL-XL) 50 MG 24 hr tablet Take 50 mg by mouth 1 (one) time each day in the morning 10/20/2019 Active ondansetron ODT (ZOFRAN-ODT) 4 MG dispersible tablet TAKE 1 TABLET BY MOUTH EVERY 6 HOURS NEEDED FOR NAUSEA AND VOMITING 10/21/2019 Active vardenafil (LEVITRA) 10 MG tablet TAKE 1 TAB 1 HOUR BEFORE SEXUAL ACTIVITY, DO NOT EXCEED 20MG/DAY 09/11/2019 Active BD PEN NEEDLE LIZA U/F 32G X 4 MM misc USE DIRECTED TO INJECT INSULIN FOUR TIMES DAILY 07/30/2019 Active HUMALOG KWIKPEN 200 UNIT/ML solution pen-injector injection INJECT1 5 UNITS SUB Q 3 TIMES A DAY NOT EXCEED 15UNITS IN A DAY 09/15/2019 Active Acetaminophen 500 MG capsule Take 1,000 mg by mouth 08/08/2018 Active Continuous Blood Gluc Sensor (FREESTYLE WALESKA 14 DAY SENSOR) misc USE DIRECTED TO MONITOR BLOOD GLUCOSE 3 4 TIMES A DAY 10/21/2019 Active cloNIDine 0.1 MG/24HR patch weekly Place on the skin Activ e Active Problems Problem Noted Date Diagnosed Date History of coronary artery bypass grafting 08/21 Atrial fibrillation 08/06/2018 Overview (10/24/2019): Last Assessment & Plan: New onset A-fib RVR 120 on 08/04. Amio gtt initiated. On metoprolol at home -discontinued amio gtt -increase metoprolol to 12.5 BID -supplement electrolytes Acute tubular necrosis 08/04/2018 Overview (10/24/2019): Last Assessment & Plan: Creatinine downtrending today 1.73 from 1.99. Hyponatremic. Urine electrolytes suggest pre-renal picture. Renal ultrasound negative. Concern for SIADH -Hold on diuresis - fluid restrict to 1L Type 2 diabetes mellitus 05/29/2018 Overview (10/24/2019): Last Assessment & Plan: - His post-op course is complicated by hyperkalemia, anuria and an episode of syncope. His clinical condition is now improved in we can resume discharge Tresiba at a reduced dose of 30 units daily, along with a MDSS Humalog. Also may resume Trulicity at 0.75 mg weekly. Will NOT resume Jardiance, however, due to recent Hx of hyperkalemia. Mixed hyperlipidemia 03/26/2018 Overview (10/24/2019): Last Assessment & Plan: Continue Crestor 10 milligram daily Coronary arteriosclerosis 02/23/2018 Overview (10/30/2019): Added automatically from request for surgery [id number] Added automatically from request for surgery [id number] Last Assessment & Plan: Need to minimize risk of hypoglycemia Obstructive sleep apnea syndrome 02/24/2015 Hypertension 09/04/2014 Overview (10/24/2019): Last Assessment & Plan: Managed by primary team on metoprolol 25 mg XL Family History Medical History Relation Comments Kidney cancer Neg Hx Social History Tobacco Use Types Packs/Day Years Used Date Smoking Tobacco: Never Smokeless Tobacco: Never Alcohol Use Standard Drinks/Week Comments Not Currently 0 (1 standard drink = 0.6 oz pur e alcohol) Sex and Gender Information Value Date Recorded Sex Assigned at Not on file Gender Identity Not on file Sexual Orientation Not on file Last Filed Vital Signs Vital Sign Reading Time Taken Comments Blood Pressure 148/70 10/30/2019 2:14 PM CDT Pulse 84 10/30/2019 2:14 PM CDT Temperature 35.8 C (96.4 F) 10/30/2019 2:14 PM CDT Respiratory Rate - - Oxygen Saturation - - Inhaled Oxygen Concentration - - Weight 108 kg (238 lb) 10/30/2019 2:14 PM CDT Height 190.5 cm (6' 3 ) 10/30/2019 2:14 PM CDT Body Mass Index 29.75 10/30/2019 2:14 PM CDT Plan of Treatment Health Maintenance Due Date Last Done Comments Influenza Vaccine (#1) 2024 Care Teams Clinical Research Spec Relationship Specialty Start Date End Date Migel Mayorga MD [address] [facility] [address] [place] [address] PCP - General Internal Medicine 10/21/19
--- OUTSIDE RECORDS SUMMARY | 2024-10-21 13:34 | XMS_ITS ---
Care Plan - [facility] Created on: October 21, 2024 MASHA SAL : 1965 Sex: Male Author Organization [facility] Address [address] [place] [address] Phone Care Team Providers Care Air Press Operator Name Role Phone DANIEL FRANCIS D.O. Unavailable [phone]
--- OUTSIDE RECORDS SUMMARY | 2024-10-21 13:34 | XMS_ITS ---
Author Organization [facility] Address [address] [place] [address] Phone Care Team Providers Care Esl Instructional Assistant Name Role Phone DANIEL FRANCIS D.O. [phone] Plan of Treatment No Plan of Treatment Recorded Assessments Includes: Assessments for all patient encounters No Assessments Recorded Medical Equipment - Implanted Devices Includes: Current and historical Devices No Medical Equipment Recorded Medications Administered Includes: Administered Medications in patient's chart No Administered Medications Recorded Results Includes: Results from 10/22/2023 through 10/21/2024 No Results Recorded For Specified Dates History of Present Illness History of Present Illness not supported for this document type No History of Present Illness Recorded Social History No Social History Recorded - Smoking Status Unknown Medical History Includes: Medical History in patient's chart No Medical History Recorded Family History Includes: Family History in patient's chart No Family History Recorded Review of Systems Review of Systems not supported for this document type No Review of Systems Recorded Mental Status No Mental Status Recorded Functional Status No Functional Status Recorded Physical Exam Physical Exam not supported for this document type No Physical Exam Recorded Clinical Notes Includes: Signed Clinical Notes starting from 08/19/2022 No Clinical Notes Recorded
== END 2024-10-21 11:28 | disposition home or self-care (01) ==
PROVIDERS: PCP Family Medicine; Visit Provider Student in an Organized Health Care Education/Training Program
DX: M48.061 Spinal stenosis, lumbar region without neurogenic claudication (principal); M47.896 Other spondylosis, lumbar region; M16.0 Bilateral primary osteoarthritis of hip
CPT/HCPCS: 72100; 73521

== ENCOUNTER 2024-11-14 10:23 | Outpatient (CLI) | payer BC, SELFPAY ==
--- NOTE | ~2024-11-14 | MR_ITS ---
MRI of the lumbar spine Clinical History: Degenerative disc disease Technique: Axial T2-weighted images, and sagittal T1-weighted, T2-weighted, and T2 fat-sat images wer e acquired. Findings: There is straightening of the normal lumbar lordosis. Osseous alignment overall is stable f rom prior exam. Probable intraosseous hemangioma of L1 is present, similar to prior exam. Probable mi nimal acute compression deformity at the inferior endplate region of L5.. At L1-L2, there is degenerative disc narrowing with minimal disc bulge and moderate facet arthropathy . No central canal stenosis. There is moderate left neural foraminal narrowing. Right neural foramen preserved. At L2-L3, there is mild degenerative change with minimal disc bulge and moderate facet arthropathy. N o central canal stenosis or neural foraminal narrowing. At L3-L4, there is moderate degenerative distended. There is diffuse disc bulge with moderate to adva nced facet arthropathy. There is minimal central canal stenosis. Neural foramina are preserved. At L4-L5, there is severe degenerative disc narrowing. Disc bulge and severe facet arthropathy are pr esent. No devonte central canal stenosis. There is severe right neural foraminal narrowing, and moderat e to severe left neural foraminal narrowing. At L5-S1, there is severe degenerative disc narrowing with severe facet arthropathy. Probable postope rative change in the posterior soft tissues. Suspected extruded or residual disc fragment in the left paracentral region, which may impinge the descending left S1-S2 level nerve root.. No devonte canal st enosis evident. There is severe bilateral neural foraminal narrowing. Paravertebral soft tissues are otherwise unremarkable. Impression: Probable minimal acute compression deformity at the inferior endplate region of L5. Suspected residual or recurrent extruded disc fragment in the left paracentral region at L5-S1, which may impinge the descending left S1-S2 level nerve root. Moderate degenerative spondylosis otherwise, as above. Suspected prior operative change at the L5 lev el. Correlate with surgical history. Reviewed, dictated and finalized at [facility]. Impression: Probable minimal acute compression deformity at the inferior endplate region of L5. Suspected residual or recurrent extruded disc fragment in the left paracentral region at L5-S1, which may impinge the descending left S1-S2 level nerve root. Moderate degenerative spondylosis otherwise, as above. Suspected prior operativ e change at the L5 level. Correlate with surgical history.
== END 2024-11-14 10:24 | disposition home or self-care (01) ==
PROVIDERS: PCP Family Medicine; Visit Provider Family Medicine
DX: M51.369 Other intervertebral disc degeneration, lumbar region without mention of lumbar back pain or lower extremity pain (principal); M48.061 Spinal stenosis, lumbar region without neurogenic claudication; M47.896 Other spondylosis, lumbar region
CPT/HCPCS: 72148

== ENCOUNTER 2025-01-20 12:06 | Outpatient (CLI) | payer BC, SELFPAY ==
[2025-01-20 13:24] LABS: Anion Gap 10 mmol/L (4-12); Blood Urea Nitrogen 32 mg/dL (9-20); Calcium 10.5 mg/dL (8.4-10.2); Carbon Dioxide 22 mmol/L (22-30); Chloride 110 mmol/L (98-107); Estimated Glomerular Filt Rate 42; Glucose 121 mg/dL (65-110); Potassium 6.1 mmol/L (3.4-5.0); Sodium 142 mmol/L (137-145)
== END 2025-01-20 12:07 | disposition home or self-care (01) ==
LOC: ANHLAB 12:07
PROVIDERS: PCP Family Medicine; Visit Provider Student in an Organized Health Care Education/Training Program
DX: E87.5 Hyperkalemia (principal)
CPT/HCPCS: 36415; 80048

== ENCOUNTER 2025-05-26 12:16 | Outpatient (CLI) | payer BC, SELFPAY ==
--- NOTE | ~2025-05-26 | US_ITS ---
EXAMINATION:US venous doppler LE RT INDICATION:Pain in right lower leg TECHNIQUE: Multiple grayscale, color flow and Doppler images of the right lower extremity deep venous systems were obtained and reviewed. COMPARISON:None FINDINGS: The right common femoral, superficial femoral and popliteal veins demonstrate normal respiratory variation, augmentation and compressibility. Color flow is also seen within the posterior tibial, peroneal, greater saphenous and profunda veins. IMPRESSION: 1: No right lower extremity deep venous thrombosis. Reviewed, dictated and finalized at location Q.
--- OUTSIDE RECORDS SUMMARY | 2025-05-26 13:40 | XMS_ITS | Clinical Summary ---
Author Organization [facility] Address [address] [place] [address] Care Team Providers Care Registration Officer Name Role Phone Migel Mayorga MD Primary Care Provider Marco Antonio Glez MD Unavailable [phone] Neftali Montoya MD Unavailable [phone] Akil Reina MD Unavailable Allergies Active Allergy Reactions Criticality Noted Date Comments Amlodipine Swelling,Dizziness Medium 10/30/2019 Losartan Dizziness Low 10/30/2019 Medications pregabalin (LYRICA) 100 mg capsule take 1 capsule by oral route 3 times every day 0 0 7 Active metFORMIN (GLUCOPHAGE) 500 mg tablet Take 1 tablet (500 mg total) by mouth daily with breakfast 30 tablet 11 0 Active cyanocobalamin (Vitamin B-12) 500 mcg tabletIndication s:Prevention of Vitamin B12 Deficiency Take 1 tablet (500 mcg total) by mouth every morning Active aspirin 81 mg enteric coated tabletIndication s:Myocardial Reinfarction Prevention,heart health Take 1 tablet (81 mg total) by mouth nightly Active Eliquis 5 mg tablet TAKE 1 TABLET BY MOUTH TWICE DAILY 60 tablet 2 Active valsartan (DIOVAN) 320 mg tablet Take 1 tablet (320 mg total) by mouth daily 30 tablet 11 3 Active Mounjaro 7.5 mg/0.5 mL pen injector injection ADMINISTER 7.5 MG UNDER THE SKIN WEEKLY 5 Active TRESIBA 100 unit/mL (3 mL) pen for injection 5 Active rosuvastatin (CRESTOR) 5 mg tablet Take 1 tablet (5 mg total) by mouth daily 5 Active hydroCHLOROthiaz harmony (HYDRODIURIL) 25 mg tablet Take 1 tablet (25 mg total) by mouth daily 5 Active Aide 2nd Gen Pen Needle 32 gauge x /32 needle USE FOUR TIMES DAILY 5 Active FreeStyle Jacinda 3 Plus Sensor device CHANGE EVERY 15 DAYS 5 Active silver sulfadiazine (SILVADENE, SSD) 1 % cream APPLY TO WOUND ON THE SKIN DAILY 5 Active hydroCHLOROthiaz harmony 12.5 mg tablet Take 1 tablet/capsule (12.5 mg total) by mouth daily 5 Active amoxicillin-clav ulanate (AUGMENTIN) 875-125 mg per tablet Take 1 tablet by mouth 2 (two) times a day 5 025 Discontin ued(Thera py completed ) Active Problems Problem Noted Date Diagnosed Date Sacroiliitis 03/05/2025 PAD (peripheral artery disease) 01/24/2024 Lumbar disc herniation 01/26/2023 Typical atrial flutter 08/14/2020 Overview (08/14/2020): Added automatically from request for surgery [id number] Assessment & Plan (11/16/2022 10:44 AM CDT): NSR today. Denies any palpitations or fast heart rates. Follows with EP. Needs follow up with EP. Continue Eliquis 5 mg BID. No evidence of bleeding. Atrial flutter 05/14/2020 Peroneal neuropathy, left 12/03/2018 Tibial neuropathy, left 12/03/2018 Status post coronary artery bypass grafting 08/01 New onset a-fib 08/06/2018 Assessment & Plan (08/06/2018 2:08 PM PLANT MAINTENANCE MECHANIC): New onset A-fib RVR 120 on 08/04. Amio gtt initiated. On metoprolol at home -discontinued amio gtt -increase metoprolol to 12.5 BID -supplement electrolytes Hyponatremia 08/05/2018 Assessment & Plan (08/08/2018 9:28 AM PLANT MAINTENANCE MECHANIC): Stable. Management per primary team. Off Jardiance. Assessment & Plan (08/06/2018 2:05 PM PLANT MAINTENANCE MECHANIC): Na 121 to 128 this am with 3% hypertonic saline given yesterday and overnight. Likely 2/2 to SIADH - 750ml fluid restriction - change q 2 hr whole blood NA to Q6 hour BMP -Sodium chloride tablets 1gm TID x6 doses then reassess Assessment & Plan (08/06/2018 10:22 AM PLANT MAINTENANCE MECHANIC): Currently on fluid restriction, managed per the primary team. Likely related to recent ATN. Recommend checking FT4 and TSH levels Assessment & Plan (08/05/2018 4:04 PM PLANT MAINTENANCE MECHANIC): Na low on arrival and has continued to downtrend. Urine output has improved with creatinine downtrending -concern for SIADH - 1L fluid restriction - hypertonic saline if pt exhibits mental status changes, - Q6 hour BMP ATN (acute tubular necrosis) 08/04/2018 Assessment & Plan (08/06/2018 1:59 PM PLANT MAINTENANCE MECHANIC): Creatinine downtrending today 1.73 from 1.99. Hyponatremic. Urine electrolytes suggest pre-renal picture. Renal ultrasound negative. Concern for SIADH -Hold on diuresis - fluid restrict to 1L Assessment & Plan (08/05/2018 4:05 PM PLANT MAINTENANCE MECHANIC): Creatinine downtrending today but remains elevated, urine output improved. BUN elevated. Hyponatremic. Urine electrolytes suggest pre-renal picture. Renal ultrasound negative. Concern for SIADH -Hold on diuresis - fluid restrict to 1L Assessment & Plan (08/04/2018 4:42 PM PLANT MAINTENANCE MECHANIC): Creatinine with upward trend over the last 24 hours with associated oliguria. Hyponatremic, suspect hypovolemia. -urine lytes -Hold on diuresis -aim for positive fluid balance, avoid free water. - renal ultra sound -renal consult Hyperglycemia 08/04/2018 Assessment & Plan (08/05/2018 3:57 PM PLANT MAINTENANCE MECHANIC): Known DM, poorly contolled. Diabetic foot ulcer with previous osteo (treated with full course of abx), peripheral neuropathy. Insulin infusion converted to SSI today with BG 170-200. -endocrine following, at this time would avoid basal insulin, continue SSI and add insulin infusion if Bg persistently > 200 - Diabetic diet Assessment & Plan (08/04/2018 4:48 PM PLANT MAINTENANCE MECHANIC): Known DM, poorly contolled. Diabetic foot ulcer, peripheral neuropathy -insulin infusion restarted for glycemic control -transition to SSI once BG has improved -endocrine is following Acute post-operative pain 08/02/2018 Assessment & Plan (08/06/2018 1:50 PM PLANT MAINTENANCE MECHANIC): Expected following cardiac surgery. Incisional discomfort particularly with coughing, however improved today - oxycodone to 10 mg PRN Q 4hours -OOB and active -Tylenol PRN Assessment & Plan (08/05/2018 3:46 PM PLANT MAINTENANCE MECHANIC): Expected following cardiac surgery. Incisional discomfort particularly with coughing, however improved today - oxycodone to 10 mg PRN Q 4hours -Tylenol PRN for pain -OOB and active Assessment & Plan (08/07/2018 8:37 AM PLANT MAINTENANCE MECHANIC): Offer oral analgesia prn (tylenol and oxycodone) Laxatives for above plus anesthesia side effects Teach splinting technique Assessment & Plan (08/03/2018 2:17 PM PLANT MAINTENANCE MECHANIC): Expected following cardiac surgery. Incisional discomfort particularly with coughing, unrelieved with oxy 5 mg -Increase oxycodone to 10 mg PRN Q 4hours -Tylenol PRN for pain -OOB and active Assessment & Plan (08/02/2018 5:12 PM PLANT MAINTENANCE MECHANIC): 2/2 recent cardiac surgery. - Wean Precedex gtt off with plan to extubate Additional Care: 1709: S/p extubation - Tylenol PRN - Oxy 5 mg PO q4h PRN pain - Dilaudid 0.2 mg q4h PRN severe pain Peripheral arterial disease 08/02/2018 Assessment & Plan (11/16/2022 10:45 AM CDT): No claudication complaints. Continue statin and ASA. Continue close follow up with vascular surgery. Assessment & Plan (08/05/2018 3:58 PM PLANT MAINTENANCE MECHANIC): Hx of PAD and foot ulcer/osteo with RLE stent placed in June 2018. Concern that sudden rise in creatinine could possible be related to embolic event, renal ultrasound was neg. - Monitor for neurovascular changes, NV checks Q 2 hours Assessment & Plan (08/04/2018 4:54 PM PLANT MAINTENANCE MECHANIC): Hx of PAD and foot ulcer/osteo with RLE stent placed in June 2018. Concern that sudden rise in creatinine could possible be related to embolic even - Monitor for neurovascular changes, NV checks Q 2 hours - renal ultrasound Assessment & Plan (08/07/2018 8:37 AM PLANT MAINTENANCE MECHANIC): Daily neurovascular checks Brilinta resumed Assessment & Plan (08/03/2018 2:08 PM PLANT MAINTENANCE MECHANIC): Hx of PAD and foot ulcer/osteo with RLE stent placed in June 2018. - Monitor for neurovascular changes, NV checks Q 2 hours -pregabalin restarted Assessment & Plan (08/02/2018 7:25 PM PLANT MAINTENANCE MECHANIC): Hx of PAD and foot ulcer/osteo with RLE stent placed in June 2018. Pt was difficult martha placement. On arrival brachial martha quit working and small hematoma noted at site. Line removed with pressure held and improving hematoma. Distal radial pulse remains palpable, good capillary refill. - Keep sat probe on right hand - Monitor for neurovascular changes 1700: After pt extubated reported some numbness to finger tips. Continues to have 2+ palpable pulse, cap refill < 1 second, sensation intact. Osteomyelitis of foot, acute 06/18/2018 Encounter for long-term (current) use of antibio tics 06/18/2018 Type 2 diabetes mellitus wit h circulatory disorder, with long-term current use of insulin 05/29/2018 Assessment & Plan (08/08/2018 9:27 AM PLANT MAINTENANCE MECHANIC): - His post-op course is complicated by hyperkalemia, anuria and an episode of syncope. His clinical condition is now improved in we can resume discharge Tresiba at a reduced dose of 30 units daily, along with a MDSS Humalog. Also may resume Trulicity at 0.75 mg weekly. Will NOT resume Jardiance, however, due to recent Hx of hyperkalemia. Assessment & Plan (08/06/2018 2:12 PM PLANT MAINTENANCE MECHANIC): Hx of Type II DM, neuropathy, PAD, and retinopathy. On home Tresiba, metformin, and Jardiance. A1c 6.9. Insulin gtt weaned to off overnight but restarted this am for BS >160 - NPH 10u q 8hr - Humalog 4u post prandial if pt eats >50% of food on tray - SSI Assessment & Plan (08/06/2018 10:25 AM PLANT MAINTENANCE MECHANIC): - His post-op course is complicated by hyperkalemia, anuria and an episode of syncope and currently he is in the CTICU. His clinical condition is now improved in we can resume basal bolus therapy Recommendation: - transition off of IV insulin drip and start NPH 10 units q.8 hours, Humalog 4 units 3 times daily with meals plus mid dose sliding scale Discussed insulin management with primary team this morning Assessment & Plan (08/04/2018 4:14 PM PLANT MAINTENANCE MECHANIC): Sal Flanagan is a 52 y.o. M with PMH T2DM complicated by neuropathy, retinopathy, CAD s/p PCI x4, PAD w hx osteomyelitis of right foot. CABG s/p day #02 - HOME REGIMEN: Tresiba 48 units QD, Metformin 500 mg BID, Jardiance 25 mg QD - Post- CABG: was on SSI and IV regular PRN, and was started on insulin drip today in am currently rate 4 u/hr. B-213 mg/dL. - His post-op course is complicated by hyperkalemia, anuria and an episode of syncope and currently he is transferred to ICU. His clinical condition is not ideal to start transition to basal bolus regimen at this time Recommendation: - Continue on insulin drip as needed, on/off based on BG levels. - will continue to follow. Assessment & Plan (08/02/2018 7:20 PM PLANT MAINTENANCE MECHANIC): Hx of Type II DM, neuropathy, PAD, and retinopathy. On home Tresiba, metformin, and Jardiance. A1c 6.9. Arrived on insulin drip at 8u/hr. - Continue insulin drip per protocol 1700: Insulin drip off per protocol. SSI Q4H ordered. Anticipate pt will need basal insulin when diet advanced. Assessment & Plan (08/07/2018 8:29 AM PLANT MAINTENANCE MECHANIC): Carb consistent diet with blood glucose checks and insulin Transferred out of ICU with NPH q 8 hrs Blood sugars x 24 hrs 119-241 Endocrine notified of planned discharge in AM CTM Assessment & Plan (05/31/2018 3:03 PM CDT): Over the previous 24 hours, blood glucose very well controlled, slightly trending down over night. Plan: - Decrease lantus to 18 units tonight - Continue Humalog 3 units TID with meals - Continue LDS TID with meals - Continue to monitor blood glucose QID Tentative Discharge Plan: - Resume home medications (doses to be determined closer to date of discharge) Follow Up: - 1-2 weeks after discharge with PCP, Dr. Mayorga to reassess glycemic control and to titrate diabetes regimen as needed. Recommendations for diabetes management were discussed with the primary team. For questions regarding this patient today, please call [phone]. If after hours, please contact the Diabetes Fellow at [phone]. Assessment & Plan (05/30/2018 6:02 PM CDT): Over the previous 24 hours, blood glucose in good margin of safety, but not at goal with range of 97-202 mg/dl with 28 units TDD insulin coverage. Target inpatient blood glucose is 100-180 mg/dl. To optimize glycemic control, we will start Humalog 3 units TID with meals and continue the current basal and correction scale insulin. We will continue to intensely monitor blood glucose QID and titrate insulin as needed to optimize glycemic control to avoid hypoglycemic/hyperglycemic events. Plan: - Continue lantus 20 units tonight - Start Humalog 3 units TID with meals - Continue LDS TID with meals - Continue to monitor blood glucose QID Tentative Discharge Plan: - Resume home medications (doses to be determined closer to date of discharge) Follow Up: - 1-2 weeks after discharge with PCP, Dr. Mayorga to reassess glycemic control and to titrate diabetes regimen as needed. Recommendations for diabetes management were discussed with the primary team. For questions regarding this patient today, please call Terri Gutierrez NP at [phone]. If after hours, please contact the Diabetes Fellow at [phone]. Assessment & Plan (05/29/2018 2:12 PM CDT): Sal Flanagan is a 52 y.o. M with PMH T2DM complicated by neuropathy, retinopathy, CAD s/p PCI x4, PAD presenting due to concern for osteomyelitis of right foot. His A1c is at goal 6.9 with corresponding bg. His last dose of tresiba was 25 units 36 hours prior and likely will start to wane requiring lose dose basal for tonight though he has been euglycemic due to Npo status since admission without additional basal. -Home: tresiba 48 units, metformin 500 mg BID, jardiance 25 mg daily -A1c: 6.9 -Plan: -Start lantus 20 units tonight -MDS TID with meals -Will need to increase basal and potentially add prandial pending bg control High risk medication use 05/29/2018 Assessment & Plan (08/08/2018 9:27 AM PLANT MAINTENANCE MECHANIC): Monitoring insulins, which could cause serious hypoglycemia. Assessment & Plan (08/06/2018 10:22 AM PLANT MAINTENANCE MECHANIC): Monitoring insulins, which could cause serious hypoglycemia. Assessment & Plan (05/31/2018 3:03 PM CDT): Intense insulin regimen in the setting of variable PO intake places patient at increased risk of hypoglycemia. We will continue to intensely monitor blood glucose QID and titrate insulin as needed to optimize glycemic control to avoid hypoglycemic/hyperglycemic events. Assessment & Plan (05/30/2018 5:55 PM CDT): Intense insulin regimen in the setting of variable PO intake places patient at increased risk of hypoglycemia. We will continue to intensely monitor blood glucose QID and titrate insulin as needed to optimize glycemic control to avoid hypoglycemic/hyperglycemic events. Assessment & Plan (05/29/2018 2:12 PM CDT): Requires intensive QID monitoring to avoid effects of hyper and hypoglycemia Coronary artery disease involving [place] heart 1 Overview (05/10/2018): Added automatically from request for surgery [id number] Assessment & Plan (08/08/2018 9:27 AM PLANT MAINTENANCE MECHANIC): Need to minimize risk of hypoglycemia Assessment & Plan (08/06/2018 2:12 PM PLANT MAINTENANCE MECHANIC): Hx of CAD with PCI x 4. On home Brilinta, metoprolol, Crestor, and ASA. Now s/p CABG x 3 on 08/02 ICU standards of care: - ASA 81 mg PO daily - Brilinta (home med) - Insulin gtt changed to MD SSI for glycemic control, adding NPH and post prandial coverage - diabetic heart healthy diet - SCDs, SQH for DVT prophy, - OOB, PT to evaluate and treat Assessment & Plan (08/06/2018 10:23 AM PLANT MAINTENANCE MECHANIC): Need to minimize risk of hypoglycemia Assessment & Plan (08/05/2018 3:55 PM PLANT MAINTENANCE MECHANIC): Hx of CAD with PCI x 4. On home Brilinta, metoprolol, Crestor, and ASA. S/p CABG x 3 on 08/02 ICU standards of care: - ASA 81 mg PO daily - Brilinta restarted - SSI for glycemic control, add insulin infusion if glucose is persistently > 200 - diabetic heart healthy diet - SCDs, SQH for DVT prophy, - OOB, PT to evaluate and treat Assessment & Plan (08/04/2018 4:46 PM PLANT MAINTENANCE MECHANIC): Hx of CAD with PCI x 4. On home Brilinta, metoprolol, Crestor, and ASA. S/p CABG x 3 on 08/02 ICU standards of care: - ASA 81 mg PO daily - Brilinta restarted - insulin infusion for glycemic control. - diabetic heart healthy diet - SCDs, SQH for DVT prophy, - OOB, PT to evaluate and treat Assessment & Plan (08/03/2018 2:13 PM PLANT MAINTENANCE MECHANIC): Hx of CAD with PCI x 4. On home Brilinta, metoprolol, Crestor, and ASA. S/p CABG x 3 on 08/02 ICU standards of care: - ASA 300 mg supp post-op then 81 mg PO daily - f/u with CTS regarding Brilinta, for known LE stent - HD SSI for glycemic control. Once appetite has improved will consider restarting home regimen - Ancef and Vanco for falguni-op abx - Pepcid for GI prophy, discontinued today following extubation - SCDs for DVT prophy, begin SQH today - advance to cardiac diet - OOB, PT to evaluate and treat Assessment & Plan (08/02/2018 7:28 PM PLANT MAINTENANCE MECHANIC): Hx of CAD with PCI x 4. On home Brilinta, metop, Crestor, and ASA. S/p CABG x 3 on 08/[address] Wyatt. ICU standards of care: - ASA 300 mg supp NOW then daily - f/u with CTS regarding Brilinta tomorrow - Insulin gtt for blood glucose control - Ancef and Vanco for falguni-op abx - Pepcid for GI prophy - SCDs for DVT prophy Assessment & Plan (08/07/2018 8:36 AM PLANT MAINTENANCE MECHANIC): S/p CABG x 3 on Aug 02 Transferred out of ICU, 2nd time, yesterday Continue ASA, Statin, & Lopressor, no ambreen due to elev creatinine Brilinta ongoing PT with aggressive pulmonary toilet and DC planning Check 2V CXR today Possible DC to home tomorrow Endocrine notified of discharge planning. Mixed hyperlipidemia 03/26/2018 Assessment & Plan (11/16/2022 10:47 AM CDT): No recent lipid panel available. Per patient he gets regular labs with PCP, Dr. Mayorga, and is scheduled to have labs in 1 week. Will request these labs and add lipid panel if no lipid panel obtained in last year. Continue Crestor 10 mg daily. Assessment & Plan (03/26/2018 11:43 AM CDT): Continue Crestor 10 milligram daily Coronary artery disease invo lving [place] heart with angina pectoris 02/23/2018 Overview (02/23/2018): Added automatically from request for surgery [id number] Assessment & Plan (11/16/2022 10:52 AM CDT): Significant CAD history with CABG in 07/2018 (EVANS to LAD, left radial to the first diagonal, and saphenous vein graft to the second marginal branch of the circumflex artery). Currently experiencing MALDONADO and fatigue that is similar to previous anginal symptoms. EKG today unchanged. Blood pressure suboptimally controlled here and at home. Will trial BB therapy with Carvedilol 6.25 mg BID for hopes of better BP control and antiaginal. If intolerant then will consider diltiazem or Imdur. Hope is to have improvement in symptoms with better BP control. However, given significant CAD history there is a low threshold to pursue ischemic evaluation. Patient to keep BP diary and return to our clinic in 1-2 weeks with an update on symptoms. Claudication 01/08/2018 Assessment & Plan (03/26/2018 11:42 AM CDT): Order ankle branchial index to rule out significant peripheral arterial disease. Assessment & Plan (01/11/2018 1:42 PM CDT): I will order ankle-brachial index to assess circulation. Continue aspirin Other male erectile dysfunction 01/08/2018 Assessment & Plan (01/11/2018 1:42 PM CDT): Refer to Urology for further evaluation Vitreous syneresis 06/15/2016 Diabetic foot ulcer 04/18/2016 Assessment & Plan (01/10/2019 11:57 AM CDT): Ten week s/p Split Thickness Skin Graft To Right Foot Wound - Right Healing well, although slowly. Continue wound care as previously advised. I will send a letter to therapy asking to postpone for 1 month. He will begin his therapy again in 1 month but we would like for him to stay off of his feet in the next month or so to encouraged healing of his right foot and also avoid full ulceration on his left. In addition, we do recommend wearing compression on this right leg to decrease edema. Will return in 1 month Assessment & Plan (11/19/2018 9:11 AM CDT): Improved from evaluation last week Keep clean, continue dressings with silver, take Keflex while in [place] Follow up [facility] Assessment & Plan (08/08/2018 9:25 AM PLANT MAINTENANCE MECHANIC): osteomyelitis of R foot. Finished 6 weeks of atb 2 weeks ago. Foot wound dry and well healed. Cont monitoring blood glucose. Assessment & Plan (08/07/2018 8:34 AM PLANT MAINTENANCE MECHANIC): Ongoing wound care Ongoing glycemic control F/U with outpatient wound clinic, after discharge Assessment & Plan (08/04/2018 4:15 PM PLANT MAINTENANCE MECHANIC): osteomyelitis of R foot. Finished 6 weeks of atb 2 weeks ago. Foot wound dry and well healed. Cont monitoring blood glucose. Assessment & Plan (05/30/2018 5:55 PM CDT): Needs intensive QID monitoring to allow for optimal wound healing Assessment & Plan (05/29/2018 2:09 PM CDT): Needs intensive QID monitoring to allow for optimal wound healing Obstructive sleep apnea syndrome 02/24/2015 Hypertension 09/04/2014 Assessment & Plan (11/16/2022 10:38 AM CDT): Blood pressure is poorly controlled today and at home per patient (SBP 150- 160's). Continue Valsartan 40 mg daily. Will trial Coreg 6.25 mg BID for hopes of improvement in BP and antianginal. If does not tolerate then will consider adding Diltiazem/ increasing Valsartan/Imdur. Of note, has not tolerated amlodipine in the past due to pedal edema. Patient to keep a BP diary and send us results in 1-2 weeks. Can stop Coreg and notify me if not tolerating. Assessment & Plan (05/31/2018 3:03 PM CDT): Managed by primary team on metoprolol 25 mg XL Assessment & Plan (05/30/2018 5:56 PM CDT): Managed by primary team on metoprolol 25 mg XL Assessment & Plan (05/29/2018 2:08 PM CDT): Managed by primary team on metoprolol 25 mg XL Neuropathy 07/21/2014 Assessment & Plan (05/31/2018 3:03 PM CDT): Requires improved glycemic control to avoid further complications Assessment & Plan (05/30/2018 5:56 PM CDT): Requires improved glycemic control to avoid further complications Assessment & Plan (05/29/2018 2:08 PM CDT): Requires improved glycemic control to avoid further complications Resolved Problems Problem Noted Date Diagnosed Date Resolved Date Hypovolemia 08/03/2018 08/07/2018 Assessment & Plan (08/04/2018 4:51 PM PLANT MAINTENANCE MECHANIC): Several near syncopal episodes on floor, generally associated with orthostatic hypotension. Albumin boluses given with some improvement however most recent episode involved unresponsiveness for ~30sec and occurred while pt was moving from stretcher to bed. -No diuresis -renal ultrasound. -FB goal positive Assessment & Plan (08/04/2018 10:56 AM PLANT MAINTENANCE MECHANIC): IVFs as NS at 75 ml/hr Monitor for orthostasis Recheck BMP Assessment & Plan (08/03/2018 2:19 PM PLANT MAINTENANCE MECHANIC): Hypotensive on NE 0.02. FB (-) 700ml. -Hold on diuretic today, give Albumin 250ml -Aim for MAP goal > 65 -OOB and active today Atelectasis 08/03/2018 08/07/2018 Assessment & Plan (08/06/2018 1:59 PM PLANT MAINTENANCE MECHANIC): CXR showing bibasilar atelectasis and small left pleural effusion. Nasal cannula 2L this morning with SaO2 100% -wean O2 for SaO2 > 92% -aggressive pulm hygiene -diuresis with lasix 20mg x1 -ambulate Assessment & Plan (08/05/2018 3:47 PM PLANT MAINTENANCE MECHANIC): CXR showing bibasilar atelectasis. Nasal cannula 4L this morning with SaO2 94% -wean O2 for SaO2 > 92% -aggressive pulm hygiene -hold on diuretic today Assessment & Plan (08/04/2018 4:44 PM PLANT MAINTENANCE MECHANIC): CXR showing bibasilar atelectasis. Nasal cannula 2L this morning with SaO2 94% -wean O2 for SaO2 > 92% -aggressive pulm hygiene -hold on diuretic Assessment & Plan (08/04/2018 10:57 AM PLANT MAINTENANCE MECHANIC): Continue aggressive pulmonary toilet Check CXR today after CTs removed Assessment & Plan (08/03/2018 2:21 PM PLANT MAINTENANCE MECHANIC): CXR showing LLL collapse, bibasilar atelectasis. Nasal cannula 3L this morning with SaO2 98% -wean O2 for SaO2 > 92% -aggressive pulm hygiene -hold on diuretic for now, will reassess later today Pulmonary insufficiency 08/02/201802/2019 Assessment & Plan (08/07/2018 8:36 AM PLANT MAINTENANCE MECHANIC): Ongoing aggressive pulmonary toilet PA & Lat CXR scheduled for today Currently, on room air Will DC this problem today Assessment & Plan (08/02/2018 7:28 PM PLANT MAINTENANCE MECHANIC): Pt arrived intubated following surgery. Hx of TOOTIE. Does not use a home CPAP machine. CXR revealed bibasilar atelectasis and small bilaterally pleural effusions. Arrived on 50% FiO2 and 7.5 PEEP, sats 94% - Recruitment maneuvers with increased PEEP, once sats better wean sedation and PSV to extubate - Encourage incentive spirometry and wean oxygen post extubation 1530: Improved oxygen saturations after recruitment maneuvers. Transitioned to PSV and tolerated well. Extubated to NC. Encourage IS. Diabetic foot ulcer 08/02/2018 08/07/19 19 Assessment & Plan (08/06/2018 2:03 PM PLANT MAINTENANCE MECHANIC): Hx of Type II DM and PAD. S/p 6 week course of cefepime completed mid June for suspected osteomyelitis - Santyl daily to wound - wound care following Assessment & Plan (08/05/2018 3:55 PM PLANT MAINTENANCE MECHANIC): Hx of Type II DM and PAD. - S/p 6 week course of cefepime completed mid June for suspected osteomyelitis - Santyl daily to wound - wound care following Assessment & Plan (08/04/2018 4:56 PM PLANT MAINTENANCE MECHANIC): Hx of Type II DM and PAD. - S/p 6 week course of cefepime completed mid June for suspected osteomyelitis - Santyl daily to wound - wound care following Assessment & Plan (08/07/2018 8:35 AM PLANT MAINTENANCE MECHANIC): Monitor wound Glycemic management Duplicate problem of above Will resolve this one. Assessment & Plan (08/03/2018 2:09 PM PLANT MAINTENANCE MECHANIC): Hx of Type II DM and PAD. - S/p 6 week course of cefepime completed mid June for suspected osteomyelitis - Santyl daily to wound - Consult intel recruiter Assessment & Plan (08/02/2018 7:26 PM PLANT MAINTENANCE MECHANIC): Hx of Type II DM and PAD. - S/p 6 week course of cefepime completed mid June for suspected osteomyelitis - Santyl daily to wound - Consult intel recruiter Preop cardiovascular exam 06/08/2018 Overview (06/08/2018): Added automatically from request for surgery [id number] Obesity (BMI 30.0-34.9) 04/25/201805/02 Coronary artery disease invo lving wilton coronary artery of wilton heart without angina pectoris 01/11/2018 08/01/2018 Assessment & Plan (05/30/2018 5:56 PM CDT): He would benefit form optimal glycemic control to avoid further complications Assessment & Plan (05/29/2018 2:07 PM CDT): He would benefit form optimal glycemic control to avoid further complications Assessment & Plan (03/26/2018 11:42 AM CDT): Continue aspirin, Brilinta, Crestor. If this patient has recurrence of InStent restenoses of the LAD, we have to think about EVANS to LAD and CABG. Will re-evaluate lipid panel on next visit and if his LDL remains above 100, then we need to intensify statin and also possibly adding Repatha. Assessment & Plan (01/11/2018 1:43 PM CDT): Continue aspirin, Plavix, statin Poorly controlled diabetes mellitus 02/26/2010 08/07/2018 Encounters Date Type Department Care Team Description 05/22/2025 7:55 AM CDT - 05/22/2025 11:59 PM CDT Hospital Encounter [facility] at [address] [place] [address] Zhen Laureano MD Spinal stenosis of lumbar region with radiculopathy (Primary Dx); Lumbar radiculopathy; Post laminectomy syndrome; Obesity, Class I, BMI 30-34.9 Discharge Disposition: Discharge to home or self care 05/16/2025 10:28 AM CDT - 05/16/2025 11:59 PM CDT Hospital Encounter [facility] at the [address] [place] [address] Zhen Laureano MD Lumbar radiculopathy (Primary Dx); Spinal stenosis of lumbar region with radiculopathy; Post laminectomy syndrome Discharge Disposition: Discharge to home or self care 05/05/2025 11:15 AM CDT Office Visit [facility] 8th [place] [address] [place] [address] Akil Reina MD PAD (peripheral artery disease) (Primary Dx); Encounter for surgical aftercare following surgery on the circulatory system 05/05/2025 10:15 AM CDT Ancillary Procedure [facility] at the [address] [place] [address] [place] [address] Encounter for surgical aftercare following surgery on the circulatory system 05/02/2025 Orders Only [facility] [address] [place] [address] 8th [place] [address] [place] [address] Akil Reina MD Encounter for surgical aftercare following surgery on the circulatory system (Primary Dx) 03/05/2025 2:53 PM CDT - 03/05/2025 11:59 PM CDT Hospital Encounter [facility] at the [address] [place] [address] Zhen Laureano MD Sacroiliitis (Primary Dx); Lumbar stenosis with neurogenic claudication; Obesity, Class I, BMI 30-34.9 Discharge Disposition: Discharge to home or self care 02/28/2025 Telephone [facility] at the [address] [place] [address] Zhen Laureano MD PMC Preprocedure from Last 3 Months Surgical History Surgery Date Site/Laterality Comments CARDIAC STENT PLACEMENT Stent Placement x4 CORONARY ANGIOPLASTY CARDIAC CATHETERIZATION VASECTOMY 07/31/1995 - 07/30/1996 SUPERFICIAL BONE BIOPSY 06/01/2018 N/A CORONARY ANGIOPLASTY WITH STENT PLACEMENT 10/30/2015 - 11/28/2015 PERIPHERAL ARTERIAL STENT GRAFT 05/30/2018 angiogram with angioplasty and stent of right tibioperoneal trunk and perineal artery Voices LUIS F BACK SURGERY 07/31/1998 - 07/30/1999 CA RPR ANOM CORONARY ARTERY PULM ART ORIGIN GRAFT CHOLECYSTECTOMY KNEE ARTHROSCOPY POSTERIOR FUSION LUMBAR SPINE 02/09/2023 L5-S1 Medical History Medical History Date Comments Hypertension Hypertension Hx Other Medical Ocular stroke O D Diabetes mellitus Hyperlipidemia Coronary artery disease Sleep apnea CAD (coronary artery disease) Diabetic neuropathy (HCC) GERD (gastroesophageal reflux disease) Foot ulcer (HCC) right foot Peripheral arterial disease Type 2 diabetes mellitus Gastric reflux Peripheral neuropathy Low back pain Family History Medical History Relation Name Comments Coronary artery disease Father Celsa nary artery disease, premature; Diabetes Father Heart attack Father Cancer Mother ovarian cancer Stroke Mother Anesthesia problems Neg Hx Relation Name Status Comments Father Alive Mother (Age 70) Social History Tobacco Use Types Packs/Day Years Used Date Smoking Tobacco: Never Passive Smoke Exposure: Past Smokeless Tobacco: Never Tobacco Cessation:Counseling Given: Not Answered Alcohol Use Standard Drinks/Week Comments Yes 0 (1 standard drink = 0.6 oz pur e alcohol) 1-2x/monthly Hunger Vital Sign Answer Date Recorded Within the past 12 months, y ou worried that your food would run out before you got the money to buy more. Never true 02/19/20 25 Within the past 12 months, t he food you bought just didn't last and you didn't have money to get more. Never true 02/18/2025 AUDIT-C Answer Date Recorded Q1: How often do you have a drink containing alc ohol? Monthly or less 05/22/2025 Q2: How many drinks containi ng alcohol do you have on a typical day when you are drinking? 1 or 2 05/22/2025 Q3: How often do you have si x or more drinks on one occasion? Never 05/22/2025 Personal Safety Answer Date Recorded Have you ever been in or are you currently in a harmful physical or emotional relationship or is someone making you feel afraid or unsafe? Denies 02/07/2024 Sex and Gender Information Value Date Recorded Sex Assigned at Not on file Legal Sex Male 3:47 AM PLANT MAINTENANCE MECHANIC Gender Identity Not on file Sexual Orientation Straight 11/05/2018 10 :46 AM CDT Obstetrics History Last Filed Vital Signs Vital Sign Reading Time Taken Comments Blood Pressure 172/87 05/22/2025 9:11 AM CDT Pulse 79 05/22/2025 9:11 AM CDT Temperature 36.2 C (97.1 F) 05/22/2025 7:59 AM CDT Respiratory Rate 18 05/22/2025 9:11 AM CDT Oxygen Saturation 97% 05/22/2025 9:11 AM CDT Inhaled Oxygen Concentration - - Weight 107 kg (236 lb) 05/22/2025 7:59 AM CDT Height 190.5 cm (6' 3) 05/22/2025 7:59 AM CDT Body Mass Index 29.5 05/22/2025 7:59 AM CDT Plan of Treatment Health Maintenance Due Date Last Done Comments Albumin Creatinine Ratio, Urine 1965 Colon Cancer Screening-Colonoscopy 1965 Depression Screening 1965 Prostate Cancer Screening-PSA 1965 Dilated Eye Exam 1965 Foot Exam 1965 DTaP/Tdap/Td Vaccine (1 - Tdap) 1976 Hepatitis B Screening 09/29/1983 Regular Well Visit/Exam 18-64 09/29/1983 Pneumococcal vaccine <65 (1 of 2 - PCV) 1984 Zoster Vaccine (1 of 2) 09/29/2015 Hemoglobin A1C 08/06/2023 02/03/2023, 03/31, 10/26/2018, Additional history exists Lipid Panel 12/02/2023 12/01/2022, 03/31, 10/26/2018, Additional history exists eGFR 02/06/2025 02/07/2024, 01/28, 02/03/2023, Additional history exists Influenza Vaccine (#1) 2025 Hepatitis C Screening Completed 04/16/2015 Goals Goal Patient Goal Type Associated Problems Recent Progress Patient-Stated? Author CCM Chronic Pain Care Plan Chronic Care Management No change(05/22 8:08 AM CDT) No Jeffrey Gee, CESAR Note: Problem: Chronic Pain Goals: 1. Minimize further functional decline 2. Maximize quality of life 3. Control pain Strategies: - Activity/exercise program recommendation - Conservative stepwise pain medicine strategy with multi-disciplinary approach - Recommend healthy lifestyle strategies and compensatory methods as needed Medical Devices Implanted Type Area Airport Tower Controller Device Identifier Shelf Expiration Date Model / Serial / Lot [employer] Saima Angio-Seal Vip 6fr Closere Device [id number] - [id number] - [id number] Implanted:Qty: 1 on 02/07/2024 by Kyleigh Srivastava MD at [facility] Collagen Right: Groin [employer] Saima 08/20/2024 [id number] / [id number] / [id number] [employer] [id number] System 6-12fr Mvp Venous Closure Vascade - [id number] Implanted:Qty: 1 on 09/18/2020 by Neri Trimble MD PhD at [facility] Other - see comments Right: Groin [employer] 06/18/2022 [id number]- 10U / / [id number] Description:Closure device [employer] [id number] System 6-12fr Mvp Venous Closure Vascade - [id number] Implanted:Qty: 1 on 09/18/2020 by Neri Trimble MD PhD at [facility] Other - see comments Left: Groin [employer] 06/18/2022 [id number]- 10U / / [id number] Description:Closure device [employer] [id number] Device Closure Vascade Od5 Fr Femoral Artery - [id number] Implanted:Qty: 1 on 09/18/2020 by Neri Trimble MD PhD at [facility] Other - see comments Left: Groin [employer] 07/01/2022 [id number] -[id number] / / [id number] Description:Closure device [employer] Saima [id number] Synergy 3.5mm 38mm 144cm Radiopaque 1 Access Port Inflation Lumen - [id number] - [id number] Implanted:Qty: 1 on 05/30/2018 by Akil Reina MD at [facility] Stent [employer] Saima 02/27/2020 [id number] / [id number] / [id number] Stent-02/27/2015 Implanted:2014 (Quantity not on file) Heart XIENCE / / Medtronic Card Vasc Surgery 6495f Streamline 53cm Temporary Bipolar Coaxial Myocardium Lead Pacing Latex Free - [id number] Implanted:Qty: 1 on 08/02/2018 by Arvin Wyatt Jr., MD at [facility] N/A: Chest Medtronic Card Vasc Surgery [id number] / / Integra [employer] Saima [id number] Integra 2x2in Bilayer Matrix Mesh Dressing Biological Bovine Latex Free - [id number] Implanted:Qty: 1 on 09/25/2018 by Juan C Liu III, MD at [facility] Integra [employer] Saima 10/29/2019 [id number] / / [id number] Procedures Procedure Name Priority Date/Time Associated Diagnosis Comments PAIN MGMT IMAGING LUMBAR/CAUDAL EPIDURAL STEROID INJ Schedule Routine, Read Routine (OP Routine) 05/22/2025 8:58 AM CDT Lumbar radiculopathy US ARTERIAL DOPPLER LOWER EXTREMITY BILATERAL Schedule Routine, Read Routine (OP Routine) 05/05/2025 11:17 AM CDT Encounter for surgical aftercare following surgery on the circulatory system PAIN MGMT IMAGING SI JOINT BILATERAL ARTHROGRPHY Schedule Routine, Read Routine (OP Routine) 03/05/2025 3:56 PM CDT Sacroiliitis EGFR STAT 02/07/2024 9:45 AM CDT POCT HEMOGLOBIN A1C Routine 02/03/2023 4:43 PM CDT LIPID PANEL Routine 12/01/2022 8:13 AM CDT Coronary artery disease involving wilton coronary artery of wilton heart with angina pectoris SERUM HEPATITIS C AB Routine 04/16/2015 12:48 PM CDT from Last 3 Months or Most Recently Relevant to Health Maintenance Results * Imaging Lumbar/Caudal Epidural Steroid INJ ([id number]) (05/22/2025 8:58 AM CDT) Narrative [facility] - 05/22/2025 8:58 AM CDT The images from this study are not interpreted by Radiology. Please refer to the physician's procedure / OR operative note. us Zhen Gomez MD IMG PAIN MGMT PROCEDU RES Final Result [facility] * US Arterial Doppler Lower Extremity Bilateral (05/05/2025 11:17 AM CDT) Anatomical Region Laterality Modality Vascular Bilateral Ultrasound 05/05/2025 10:4 2 AM CDT Narrative 05/05/2025 1:13 PM CDT [facility] - Department of Vascular Surgery, Vascular Laboratory [address] [place] [address] Lower Extremity Arterial Doppler Report Patient Name: SAL FLANAGAN : 1965 Study Date: 05/05/2025 10:42:00 AM Sex: M Tech: Maricel Hernandez RVT Location: [facility] Provider: AKIL REINA Quality: Adequate Order Provider: AKIL REINA PROCEDURES: Arterial Report: Bilateral lower extremity arterial Doppler exam at rest. INDICATIONS: Z48.812 Encounter for surgical aftercare following surgery on the circulatory system. MEASUREMENTS: Right Value Units Left Value Units Rt Brachial Pressure 152 mmHg Lt Brachial Pressure 145 mmHg Rt BEE ROBBER Pressure 85 mmHg Lt BEE ROBBER Pressure 155 mmHg Rt DPA Pressure 92 mmHg Lt DPA Pressure 162 mmHg Rt 1st Digit Pressure 44 mmHg Lt 1st Digit Pressure 81 mmHg Rt PT MEDARDO Resting 0.56 Lt PT MEDARDO Resting 1.02 Rt AT MEDARDO Resting 0.61 Lt AT MEDARDO Resting 1.07 Rt Digit/Arm Index 0.29 Lt Digit/Arm Index 0.53 Right Value Units Left Value Units FINDINGS: Performing [employer] Teacher: Maricel Avdic, RVT. Left All Levels: The left common femoral, popliteal, posterior tibial and anterior tibial artery waveforms are multiphasic. Right Common Femoral Artery Analysis: The common femoral artery waveform is multiphasic. Right Popliteal Artery Analysis: The popliteal waveform is monophasic. Right Posterior Tibial Artery Analysis: The posterior tibial waveform is monophasic. Right Anterior Tibial Artery Analysis: The anterior tibial waveform is monophasic. Right Digits: The right digit waveform is dampened. Left Digits: The left digit pressure is dampened. CONCLUSIONS: 1. The above listed right Ankle/Brachial Index at rest is consistent with moderate peripheral arterial disease - claudication (for reference, claudication range is 0.50 -0.89). 2. The above listed left Ankle/Brachial Index at rest is within normal limits (for reference, normal resting MEDARDO is 0.90 - 1.4; MEDARDO >1.4 due to non-compressible arteries is not diagnostic). 3. Bilateral Digit/Arm Indices are abnormal (for reference, abnormal GA is <0.6). 4. The left lower extremity arterial Doppler reveals multiphasic waveforms in all distributions above. No evidence of lower extremity arterial occlusive disease at rest on the left. 5. There is evidence of right leg arterial insufficiency at the level of femoral-popliteal arteries. HISTORY: 02/07/24 Balloon angioplasty of left anterior tibial artery with therapeutic intent Balloon angioplasty of left popliteal artery with therapeutic intent Balloon angioplasty of left tibioperoneal trunk and peroneal artery with therapeutic intent - PREVIOUS STUDIES: Previous study on 11-25-24 RT: 0.99 LT: 1.02. DISCLAIMER: The study images and the final report will be retained in the patient chart by the Vascular Laboratory for the legally required time period. This chart constitutes the legal record of any testing performed. ATTESTATION: I have reviewed and interpreted the pertinent images and measurements of this study. I attest to the conclusions in the final report that is provided above. Electronically Signed By: Miles Merrill MD [facility] [phone] 05/05/2025 12:23:35 PM CDT Procedure Note Miles Merrill MD - 05/05/2025 [facility] - Department of Vascular Surgery,Vascular Laboratory [address] [place] [address] Lower Extremity Arterial Doppler Report Patient Name: SAL FLANAGAN : 1965 Study Date: 05/05/2025 10:42:00 AM Sex: M Tech: Maricel Hernandez RVT Location: [facility] Provider: AKIL REINA Quality: Adequate Order Provider: AKIL REINA PROCEDURES: Arterial Report: Bilateral lower extremity arterial Doppler exam at rest. INDICATIONS: Z48.812 Encounter for surgical aftercare following surgery on thecirculatory system. MEASUREMENTS: Right Value Units Left Value Units Rt Brachial Pressure 152 mmHg Lt Brachial Pressure 145 mmHg Rt BEE ROBBER Pressure 85 mmHg Lt BEE ROBBER Pressure 155 mmHg Rt DPA Pressure 92 mmHg Lt DPA Pressure 162 mmHg Rt 1st Digit Pressure 44 mmHg Lt 1st Digit Pressure 81 mmHg Rt PT MEDARDO Resting 0.56 Lt PT MEDARDO Resting 1.02 Rt AT MEDARDO Resting 0.61 Lt AT MEDARDO Resting 1.07 Rt Digit/Arm Index 0.29 Lt Digit/Arm Index 0.53 Right Value Units Left Value Units FINDINGS: Performing [employer] Teacher: Maricel Hernandez RVT. Left All Levels: The left common femoral, popliteal, posterior tibial and anterior tibialartery waveforms are multiphasic. Right Common Femoral Artery Analysis: The common femoral artery waveform is multiphasic. Right Popliteal Artery Analysis: The popliteal waveform is monophasic. Right Posterior Tibial Artery Analysis: The posterior tibial waveform is monophasic. Right Anterior Tibial Artery Analysis: The anterior tibial waveform is monophasic. Right Digits: The right digit waveform is dampened. Left Digits: The left digit pressure is dampened. CONCLUSIONS: 1. The above listed right Ankle/Brachial Index at rest is consistent withmoderate peripheral arterial disease - claudication (for reference, claudicationrange is 0.50 -0.89). 2. The above listed left Ankle/Brachial Index at rest is within normallimits (for reference, normal resting MEDARDO is 0.90 - 1.4; MEDARDO >1.4 due tonon-compressible arteries is not diagnostic). 3. Bilateral Digit/Arm Indices are abnormal (for reference, abnormal DAIis <0.6). 4. The left lower extremity arterial Doppler reveals multiphasic waveformsin all distributions above. No evidence of lower extremity arterial occlusivedisease at rest on the left. 5. There is evidence of right leg arterial insufficiency at the level of femoral-popliteal arteries. HISTORY: 02/07/24 Balloon angioplasty of left anterior tibial artery with therapeuticintent Balloon angioplasty of left popliteal artery with therapeutic intent Balloon angioplasty of left tibioperoneal trunk and peroneal artery withtherapeutic intent - PREVIOUS STUDIES: Previous study on 11-25-24 RT: 0.99 LT: 1.02. DISCLAIMER: The study images and the final report will be retained in the patientchart by the Vascular Laboratory for the legally required time period. This chartconstitutes the legal record of any testing performed. ATTESTATION: I have reviewed and interpreted the pertinent images and measurements ofthis study. I attest to the conclusions in the final report that is provided above. Electronically Signed By: Miles Merrill MD [facility] [phone] 05/05/2025 12:23:35 PM CDT us Akil Reina MD IMG US PROCEDURES Final R esult * Imaging SI Joint Injection Bilateral ([id number]) (03/05/2025 3:56 PM CDT) Narrative [facility] - 03/05/2025 3:57 PM CDT The images from this study are not interpreted by Radiology. Please refer to the physician's procedure / OR operative note. us Zhen Gomez MD IMG PAIN MGMT PROCEDU RES Final Result Performing Organization Address [facility] Co de Phone Number [facility] * (ABNORMAL) eGFR (02/07/2024 9:45 AM CDT) eGFR 57(L) >=60 mL/min/1. 73 m2 Comment: Interpretive Data Reference Interval Normal >/= 90 mL/min/1.73m2 Mildly decreased* 60 - 89 mL/min/1.73m2 Mildly to moderately decreased 45 - 59 mL/min/1.73m2 Moderately to severely decreased 30 - 44 mL/min/1.73m2 Severely decreased 15 - 29 mL/min/1.73m2 Kidney Failure < 15 mL/min/1.73m2 *Relative to young adult level Estimated glomerular filtration rate is determined by the 2020 CKD-EPI equation recommended by the National Kidney Foundation (A Unifying Approach to GFR Estimation: Recommendations of the NKF-ASK Task Force on Reassessing the Inclusion of Race in Diagnosing Kidney Disease, JASN 2020). The CKD-EPI equation should not be used for patients with unstable renal function and has not been validated in children and those over 70. Current interpretive data was last reviewed 2021. Blood 02/07/2024 9:45 AM CDT 02/07/2024 9:58 AM CDT Akil Reina MD LAB BLOOD ORDERABLES Shelley l Result [facility] Department [place] [address] * (ABNORMAL) POCT hemoglobin A1c (02/03/2023 4:43 PM CDT) Hgb A1C, POC 8.3(H) 4.0 - 5.6 % [facility] Est Average Gluc POC 192 mg/dL [facility] Comment: The ADA recommends reporting an estimated Average Glucose (eAG) with all Hemoglobin A1c results using the equation derived from a study of 507 normal and diabetic adults. Minority populations were underrepresented and children were not included. (Diabetes Care 31:1203-2082, 2008). The eAG is not equivalent to a fasting glucose. Blood 02/03/2023 4:43 PM CDT 02/03/2023 4:43 PM CDT Miles Castellano MD POINT OF CARE TEST ORDERAB LES Final Result Performing Organization Address [facility] Co de Phone Number [facility] Department [place] [address] * Lipid panel (12/01/2022 8:13 AM CDT) [facility] Cholesterol 138 <200 mg/dL [facility] HDL 48 > OR = 40 mg/dL [facility] Triglycerides 100 <150 mg/dL [facility] LDL 71 mg/dL (calc) [facility] Comment: Reference range: <100 Desirable range <100 mg/dL for primary prevention; <70 mg/dL for patients with CHD or diabetic patients with > or = 2 CHD risk factors. LDL-C is now calculated using the Jaylin calculation, which is a validated novel method providing better accuracy than the Friedewald equation in the estimation of LDL-C. Rah SIERRA et al. MANJULA. 2013;310(19): 2022-7212 (http://education.Ubitexx.Publimind/faq/VPH526) Chol/HDL ratio 2.9 <5.0 (calc) [facility] Non-HDL, (LDL+VLDL) 90 <130 mg/dL (calc) [facility] Comment: For patients with diabetes plus 1 major ASCVD risk factor, treating to a non-HDL-C goal of <100 mg/dL (LDL-C of <70 mg/dL) is considered a therapeutic option. Blood 12/01/2022 8:13 AM CDT 12/01/2022 8:14 AM CDT Narrative [facility] - 12/02/2022 1:54 AM CDT FASTING:YES FASTING: YES us Frank Drummond [employer] LAB BLOOD ORDERABLES Fin al Result [facility] [address] [place] [address] * Serum Hepatitis C ab (04/16/2015 12:48 PM CDT) HCV ab Non-Reacti ve Non-Reacti ve HISTORICAL RESULTS Serum 04/16/2015 12:4 8 PM CDT us Michael Lawton MD LAB BLOOD ORDERABLES Shelley l Result HISTORICAL RESULTS from Last 3 Months or Most Recently Relevant to Health Maintenance Insurance [facility] [place] [facility] CHOICE PLUS [facility] CHOICE [place] Advance Directives For more information, please contact: [phone] * Full Code (Latest Code Status on File) Date Activated Date Inactivated Comments 04/13/2020 5:40 PM 04/15/2020 8:03 PM * Full Code Date Activated Date Inactivated Comments 08/10/2018 1:16 PM 09/25/2018 6:37 AM * Full Code Date Activated Date Inactivated Comments 08/02/2018 1:46 PM 08/08/2018 1:00 PM * Full Code Date Activated Date Inactivated Comments 08/02/2018 1:34 PM 08/02/2018 1:46 PM * Full Code Date Activated Date Inactivated Comments 06/18/2018 10:07 AM 06/18/2018 2:58 PM Care Teams Registration Officer Relationship Specialty Start Date End Date Migel Mayorga MD [address] [place] [address] [address] [place] [address] PCP - General Family Medicine 01/08/18 Marco Antonio Glez MD [address] [place] [address] [address] [place] [address] Consulting Physician Interventional Cardiology 04/13/18 Neftali Montoya MD [address] [place] [address] Referring Physician Cardiology 08/21/18 Akil Reina MD [address] [facility] 8[address]12[address]01 [place] [address] Surgeon Vascular Surgery 02/07/24 [place] Podiatry 10/11/23
--- OUTSIDE RECORDS SUMMARY | 2025-05-26 13:40 | XMS_ITS | Encounter Summary ---
Author Organization [facility] Address [address] [place] [address] Phone Care Team Providers Care Distribution Clerk Name Role Phone Migel Mayorga MD Primary Care Provider Marco Antonio Glez MD Unavailable [phone] Neftali Montoya MD Unavailable [phone] Akil Reina MD Unavailable Reason for Visit * Reason Onset Date Comments RETURNING CALL 05/16/2018 Encounter Details Date Type Department Care Team (Late st Contact Info) Description 05/16/2018 Telephone [facility] Cardiology [address] [facility] 8th [place] [address] [place] [id number] Neftali Montoya MD [address] [facility] [address] [place] [address] RETURNING CALL Social History Tobacco Use Types Packs/Day Years Used Date Smoking Tobacco: Never Smokeless Tobacco: Never Alcohol Use Standard Drinks/Week Comments Yes 0 (1 standard drink = 0.6 oz pur e alcohol) 1-2x/monthly Sex and Gender Information Value Date Recorded Sex Assigned at Not on file 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 Gender Identity Not on file Sexual Orientation Straight 11/05/2018 10 :46 AM CDT documented as of this encounter Plan of Treatment Not on file documented as of this encounter Visit Diagnoses Not on filedocumented in this encounter Care Teams Distribution Clerk Relationship Specialty Start Date End Date Migel Mayorga MD [address] [place] [address] PCP - General Family Medicine 01/08/18 Marco Antonio Glez MD [address] [facility] [address] [place] [address] Consulting Physician Interventional Cardiology 04/13/18 Neftali Montoya MD [address] [place] [address] Referring Physician Cardiology 08/21/18 Akil Reina MD [address] [facility] 8108-12-01 [place] [address] Surgeon Vascular Surgery 02/07/24 [place] Podiatry 10/11/23 documented as of this encounter
--- OUTSIDE RECORDS SUMMARY | 2025-05-26 13:40 | XMS_ITS | Encounter Summary ---
Author Organization [facility] Address [address] [place] [address] Phone Care Team Providers Care Parking Meter Mechanic Name Role Phone Migel Mayorga MD Primary Care Provider Marco Antonio Glez MD Unavailable [phone] Neftali Montoya MD Unavailable [phone] Akil Reina MD Unavailable Encounter Details Date Type Department Care Team (Late st Contact Info) Description 01/16/2023 Telephone [facility] Cardiology [address] [facility] 8th [place] [address] [place] [address] Yodit Braxton Social History Tobacco Use Types Packs/Day Years Used Date Smoking Tobacco: Never Smokeless Tobacco: Never Alcohol Use Standard Drinks/Week Comments Yes 0 (1 standard drink = 0.6 oz pur e alcohol) 1-2x/monthly AUDIT-C Answer Date Recorded Q1: How often do you have a drink containing alc ohol? 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 Gender Identity Not on file Sexual Orientation Straight 11/05/2018 10 :46 AM CDT documented as of this encounter Plan of Treatment Not on file documented as of this encounter Visit Diagnoses Not on filedocumented in this encounter Care Teams Parking Meter Mechanic Relationship Specialty Start Date End Date Migel Mayorga MD [address] [place] [address] PCP - General Family Medicine 01/08/18 Marco Antonio Glez MD [address] [facility] [address] [place] [address] Consulting Physician Interventional Cardiology 04/13/18 Neftali Montoya MD [address] [place] [address] Referring Physician Cardiology 08/21/18 Akil Reina MD [address] [facility] [address]12-01 [place] [address] Surgeon Vascular Surgery 02/07/24 Jonna Briggs [place], [place] Podiatry 10/11/23 documented as of this encounter
--- OUTSIDE RECORDS SUMMARY | 2025-05-26 13:40 | XMS_ITS | Encounter Summary ---
Author Organization [facility] Address [address] [address] Care Team Providers Care Mines Safety Engineer Name Role Phone Pelon Sparks MD Primary Care Provider Pelon Sparks MD Primary Care Provider Migel Mayorga MD Primary Care Provider Pelon Sparks MD Primary Care Provider Migel Mayorga MD Primary Care Provider Marco Antonio Glez MD Unavailable [phone] Neftali Montoya MD Unavailable [phone] Akil Reina MD Unavailable [phone] Encounter Details Date Type Department Care Team (Late st Contact Info) Description 11/18/2015 Orders Only [facility] ProviderCelso MD [address] [place] [address] Social History Tobacco Use Types Packs/Day Years Used Date Smoking Tobacco: Never Alcohol Use Standard Drinks/Week Comments No 0 (1 standard drink = 0.6 oz pur e alcohol) Sex and Gender Information Value Date Recorded Sex Assigned at Not on file 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 us Historical Provider [facility] PROCE DURES Final Result * CARDIOLOGY REPORT (11/18/2015) Anatomical Region Laterality Modality Other Narrative 11/18/2015 Ordered by an unspecified provider. us Historical Provider [facility] SERVICES PROCE DURES Final Result documented in this encounter Visit Diagnoses Not on filedocumented in this encounter Care Teams Mines Safety Engineer Relationship Specialty Start Date End Date Pelon Sparks MD PCP - General 10/04/16 11/09/16 Pelon Sparks MD PCP - General 04/16/15 10/03/16 Migel Mayorga MD [address] [facility] [address] [place] [address] PCP - General 11/10/16 11/22/16 Pelon Sparks MD PCP - General 11/23/16 01/07/18 Migel Mayorga MD [address] [address] PCP - General Family Medicine 01/08/18 [place] [address] [place] [address] [address], [place] [address] Consulting Physician Interventional Cardiology 04/13/18 Neftali Montoya MD [address] [place] [address] Referring Physician Cardiology 08/21/18 Akil Reina MD [address] [facility] 8108-12-01 [place] [address] Surgeon Vascular Surgery 02/07/24 [place], [place] Podiatry 10/11/23 documented as of this encounter
--- OUTSIDE RECORDS SUMMARY | 2025-05-26 13:40 | XMS_ITS | Encounter Summary ---
Author Organization [facility] Address [address] [place] [address] Phone Care Team Providers Care Pulverizer Operator Name Role Phone Migel Mayorga MD Primary Care Provider Marco Antonio Glez MD Unavailable [phone] Neftali Montoya MD Unavailable [phone] Akil Reina MD Unavailable Encounter Details Date Type Department Care Team (Late st Contact Info) Description 04/30/2018 Telephone [facility] Cardiology [address] [facility] 8th [place] [address] [place] [address] Neftali Montoya MD [address] [facility] [address] [place] [address] Social History Tobacco Use Types Packs/Day Years Used Date Smoking Tobacco: Never Smokeless Tobacco: Never Alcohol Use Standard Drinks/Week Comments Yes 0 (1 standard drink = 0.6 oz pur e alcohol) 1-2x/monthly Sex and Gender Information Value Date Recorded Sex Assigned at Not on file 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 Gender Identity Not on file Sexual Orientation Straight 11/05/2018 10 :46 AM CDT documented as of this encounter Plan of Treatment Not on file documented as of this encounter Visit Diagnoses Not on filedocumented in this encounter Care Teams Pulverizer Operator Relationship Specialty Start Date End Date Migel Mayorga MD [address] [place] [address] PCP - General Family Medicine 01/08/18 Marco Antonio Glez MD [address] [facility] [address] [place] [address] Consulting Physician Interventional Cardiology 04/13/18 Neftali Montoya MD [address] [place] [address] Referring Physician Cardiology 08/21/18 Akil Reina MD [address] [facility] 8108-12-01 [place] [address] Surgeon Vascular Surgery 02/07/24 [place] Podiatry 10/11/23 documented as of this encounter
--- OUTSIDE RECORDS SUMMARY | 2025-05-26 13:40 | XMS_ITS | Clinical Summary ---
Author Organization [facility] Address [address] [place] [address] Phone Care Team Providers Care Cupola Hoist Operator Name Role Phone Migel Mayorga MD Primary Care Provider [phone] Allergies Active Allergy Reactions Criticality Noted Date Comments Amlodipine Swelling 10/30/2019 Losartan Dizziness 10/30/2019 Medications aspirin EC 81 MG EC tablet TAKE 1 TABLET BY MOUTH EVERY DAY 9 Active insulin degludec (TRESIBA FLEX TOUCH) 200 UNIT/ML injection Inject 30 Units under the skin daily 9 Active pregabalin (Lyrica) 100 MG capsule 100 mg 7 Active metoprolol succinate XL (TOPROL-XL) 50 MG 24 hr tablet Take 50 mg by mouth 1 (one) time each day in the morning 0 Active ondansetron ODT (ZOFRAN-ODT) 4 MG dispersible tablet TAKE 1 TABLET BY MOUTH EVERY 6 HOURS NEEDED FOR NAUSEA AND VOMITING 0 Active vardenafil (LEVITRA) 10 MG tablet TAKE 1 TAB 1 HOUR BEFORE SEXUAL ACTIVITY, DO NOT EXCEED 20MG/DAY 0 Active BD PEN NEEDLE LIZA U/F 32G X 4 MM misc USE DIRECTED TO INJECT INSULIN FOUR TIMES DAILY 9 Active HUMALOG KWIKPEN 200 UNIT/ML solution pen-injector injection INJECT1 5 UNITS SUB Q 3 TIMES A DAY NOT EXCEED 15UNITS IN A DAY 0 Active Acetaminophen 500 MG capsule Take 1,000 mg by mouth 9 Active Continuous Blood Gluc Sensor (FREESTYLE WALESKA 14 DAY SENSOR) misc USE DIRECTED TO MONITOR BLOOD GLUCOSE 3 4 TIMES A DAY 0 Active cloNIDine 0.1 MG/24HR patch weekly Place on the skin Active Active Problems Problem Noted Date Diagnosed Date [...] (10/30/2019): Added automatically from request for surgery [id number] Added automatically from request for surgery [id number] Last Assessment & Plan: Need to minimize [...] at Not on file Legal Sex Male 9:39 AM MDT Gender Identity Not on file Sexual Orientation [...] 2:14 PM CDT Height 190.5 cm (6' 3) 10/30/2019 2:14 PM CDT Body Mass Index 29.75 10/30/2019 2:14 PM CDT Plan of Treatment Health Maintenance Due Date Last Done Comments Influenza Vaccine (#1) 2025 Insurance [facility] Care Teams Cupola Hoist Operator Relationship Specialty Start Date End Date Migel Mayorga MD [address] [facility] 162 [facility] 120 [place] [address] PCP - General Internal Medicine 10/21/19
--- OUTSIDE RECORDS SUMMARY | 2025-05-26 13:40 | XMS_ITS | Encounter Summary ---
Author Organization [facility] Address [address] [address] Care Team Providers Care Electronic Assembler Group Leader Name Role Phone Pelon Sparks MD Primary Care Provider Pelon Sparks MD Primary Care Provider Migel Mayorga MD Primary Care Provider Pelon Sparks MD Primary Care Provider Migel Mayorga MD Primary Care Provider Marco Antonio Glez MD Unavailable [phone] Neftali Montoya MD Unavailable [phone] Akil Reina MD Unavailable [phone] Encounter Details Date Type Department Care Team (Late st Contact Info) Description 11/26/2015 Orders Only [facility] ProviderCelso MD [address] [place] [address] Social History Tobacco Use Types Packs/Day Years Used Date Smoking Tobacco: Never Alcohol Use Standard Drinks/Week Comments No 0 (1 standard drink = 0.6 oz pur e alcohol) Sex and Gender Information Value Date Recorded Sex Assigned at Not on file 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 us Historical Provider [facility] ROBERT JANG Final Result documented in this encounter Visit Diagnoses Not on filedocumented in this encounter Care Teams Electronic Assembler Group Leader Relationship Specialty Start Date End Date Pelon Sparks MD PCP - General 10/04/16 11/09/16 Pelon Sparks MD PCP - General 04/16/15 10/03/16 Migel Mayorga MD [address] [facility] [address] [place] [address] PCP - General 11/10/16 11/22/16 Pelon Sparks MD PCP - General 11/23/16 01/07/18 Migel Mayorga MD [address] [facility] 120 [place] [address] PCP - General Family Medicine 01/08/18 Marco Antonio Glez MD [address] [facility] [address], [place] [address] Consulting Physician Interventional Cardiology 04/13/18 Neftali Montoya MD [address] [place] [address] Referring Physician Cardiology 08/21/18 Akil Reina MD [address] [facility] [address] [place] [address] Surgeon Vascular Surgery 02/07/24 [place] Podiatry 10/11/23 documented as of this encounter
--- OUTSIDE RECORDS SUMMARY | 2025-05-26 13:40 | XMS_ITS | Encounter Summary ---
Author Organization [facility] Address [address] [place] [address] Phone Care Team Providers Care Trailers And Motor Homes Salesperson Name Role Phone Migel Mayorga MD Primary Care Provider Marco Antonio Glez MD Unavailable [phone] Neftali Montoya MD Unavailable [phone] Akil Reina MD Unavailable Encounter Details Date Type Department Care Team (Latest Contact Info) Description 01/10/2019 Orders Only [facility] Scanning, Provider Social History Tobacco Use Types Packs/Day Years Used Date Smoking Tobacco: Never Smokeless Tobacco: Never Alcohol Use Standard Drinks/Week Comments Yes 0 (1 standard drink = 0.6 oz pur e alcohol) 1-2x/monthly Sex and Gender Information Value Date Recorded Sex Assigned at Not on file 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 Gender Identity Not on file Sexual Orientation Straight 11/05/2018 10 :46 AM CDT documented as of this encounter Plan of Treatment Not on file documented as of this encounter Procedures Procedure Name Priority Date/Time Associated Diagnosis Comments CARDIOLOGY DOCUMENT SCAN 01/10/2019 documented in this encounter Results * SCAN - CARDIOLOGY (01/10/2019) Anatomical Region Laterality Modality Other us Provider Scanning [facility] PROCEDURES Final Result documented in this encounter Visit Diagnoses Not on filedocumented in this encounter Care Teams Trailers And Motor Homes Salesperson Relationship Specialty Start Date End Date Migel Mayorga MD [address] [place] [address] PCP - General Family Medicine 01/08/18 Marco Antonio Glez MD [address] [facility] [address] [place] [address] Consulting Physician Interventional Cardiology 04/13/18 Neftali Montoya MD [address] [place] [address] Referring Physician Cardiology 08/21/18 Akil Reina MD [address] [facility] 8[address]12-01 [place] [address] Surgeon Vascular Surgery 02/07/24 [place], [place] Podiatry 10/11/23 documented as of this encounter
== END 2025-05-26 12:17 | disposition home or self-care (01) ==
PROVIDERS: PCP Family Medicine; Visit Provider Podiatrist Foot & Ankle Surgery
DX: M79.661 Pain in right lower leg (principal)
CPT/HCPCS: 93971